=== PATIENT | male | born 1950 | race Caucasian/White ===

== ENCOUNTER 2017-10-14 11:39 | Inpatient (IN) | payer MEDICARE ==
[~2017-10-14] VITALS: Ht 175.3 cm; Wt 107.3 kg
[2017-10-14] VITALS (8 sets, daily range): BP systolic 155–208; BP diastolic 68–138; PULSE 75–98; RESP 14–20; TEMP 97.1–98.6; O2SAT 92–94
[~2017-10-14 11:39] MED LIST: ASPI81TA11 PO; AZIT250T43 PO; BISA5TAB5 PO; BRIM0.2S EACH EYE; BUDE0.5S INH; CEPH500C3 PO; CO Q100C9 PO; DUONI NEB; FORM12I INH; GLUC750T13 PO; GUAI600 PO; HYDR50TA15 PO; LISI-366 PO; LORA10TA PO; LORTA5 PO; MOTR200T PO; PRED10 PO; PROB1TAB PO; TAB-TAB PO; Z.0.OXYGEN INH
[2017-10-14] MEDS ORDERED: SODIUM CHLORIDE 0.9% FLUSH 10 ML FLUSH IVF PRN (12:15)
--- NOTE | 2017-10-14 12:17 | PD ---
HPI Chief Complaint: Respiratory Symptoms Time Seen by Provider: 11:55 Travel History International Travel<30 days: No Contact w/Intl Traveler<30days: No History of Present Illness HPI This is a 67-year-old male with history of COPD, recent fluid retention, presents from his doctor's office for admission for fluid retention. According to the patient, he was started on furosemide however he is still having swelling and shortness of breath. His physician heard rales on exam and sent him here for admission. The patient denies any chest pain, chest pressure. He denies any previous history of congestive heart failure. There are no other complaints at the time of my examination. PFSH Past Medical History Arthritis: Yes Asthma: No Autoimmune Disease: No Blood Disorders: No Anxiety: No Depression: No Heart Rhythm Problems: No Cancer: No Cardiovascular Problems: Yes High Cholesterol: No Chemotherapy: No Chest Pain: No Congestive Heart Failure: No COPD: Yes Cerebrovascular Accident: No Diabetes: Yes (borderline, does not take medication) Patient Takes Glucophage: No Diminished Hearing: No Endocrine: Yes Gastrointestinal Disorders: Yes (RECTAL FISTULA) GERD: No Glaucoma: No Genitourinary: No Headaches: No Hepatitis: No Hiatal Hernia: Yes Heparin Induced Thrombocytopen: No Hypertension: Yes Immune Disorder: No Implanted Vascular Access Dvce: No Kidney Stones: No Medical other: No Musculoskeletal: Yes Neurologic: No Psychiatric: No Reproductive: No Respiratory: Yes Immunizations Current: No Migraines: No Myocardial Infarction: No Radiation Therapy: No Renal Failure: No Seizures: No Sickle Cell Disease: No Sleep Apnea: Yes (cpap at night) Thyroid Disease: No Ulcer: No PNEUMOCCOCAL Vaccine (Year): 2 Past Surgical History Abdominal Surgery: No AICD: No Appendectomy: No Arteriovenous Shunt: No Cardiac Surgery: No Cholecystectomy: No Ear Surgery: No Endocrine Surgery: No Eye Surgery: No Genitourinary Surgery: No Gynecologic Surgery: No Insulin Pump: No Joint Replacement: No Neurologic Surgery: No Oral Surgery: No Pacemaker: No Thoracic Surgery: Yes Other Surgery: Yes (RECTAL FISTULA REPAIR IN 1984) Social History Alcohol Use: Yes (4-5 BEERS A DAY) Tobacco Use: No (QUIT 4 YEARS AGO) Substance Use: No Allergies-Medications (Allergen,Severity, Reaction): Coded Allergies: latex (Unverified Allergy, Severe, RASH AND ITCHING, 04/20/17) atorvastatin (Unverified Adverse Reaction, Severe, LETHARGY, 04/20/17) hydrochlorothiazide (Unverified Adverse Reaction, Severe, LOW SODIUM LEVEL , 04/20/17) Reported Meds & Prescriptions Reported Meds & Active Scripts Active Reported Keflex (Cephalexin Monohydrate) 500 Mg Cap 500 Mg PO Q6 7 Days [place] 5/325 (Hydrocodone/Acetaminophen 5/325) 5 mg/325 mg Tab 1 Tab PO Q6H PRN Dulcolax (Bisacodyl) 5 Mg Tabec 5 Mg PO DAILY PRN Brimonidine Tartrate 0.2 % Argenis 1 Drop EACH EYE BID Claritin 10 Mg Tab (Loratadine) 10 Mg Tab 10 Mg PO DAILY Probiotic (Probiotic Product) 1 Tab Tab 1 Tab PO DAILY Co Q 10 (Coenzyme Q10) 100 Mg Cap 100 Mg PO DAILY Glucosamine Sulfate Tripl (Glucosamine Sulfate) 750 Mg Tab 750 Mg PO BID Multivitamin (Multivitamins) 1 Tab Tab 1 Tab PO DAILY Mucinex 600 Mg Tab (Guaifenesin) 600 Mg Tabcr 1-2 Tab PO DAILY Lisinopril 40 mg (Lisinopril) 40 Mg Tab 1 Tab PO HS Hydralazine HCl 50 Mg Tab 75 Mg PO TID Budesonide (Budesonide (Inhalation)) 0.5MG/2 Jackie 1 Vial INH BID IN NEBULIZER WITH FORMOTEROL Foradil 12 Mcg Aerolizer (Formoterol Fumarate) 12 Inhalation/Inhaler Aero 1 Inhalation INH BID USED IN NEBULIZER WITH BUDESONIDE 12MCG IS DOSE Resp: Albuterol/Ipratropium 2.5 Mg/0.5 Mg (Albuterol/Ipratropium) 1 Amp Nebu 1 Ampule NEB Q4HR NEB PRN Oxygen (O2) (Miscellaneous Medication) Inha 2 L INH INTERMITTENT PRN Oxygen (O2) (Miscellaneous Medication) Inha 2-3 L INH HS Deltasone 10 Mg Tab (Prednisone) 10 Mg Tab 10 Mg PO DAILY Ibuprofen 200 Mg Tab 200 Mg PO BID Azithromycin 250 Mg Tab 250 Mg PO MO,WE,FR Aspirin EC 81 mg (Aspirin) 81 Mg Tab 81 Mg PO DAILY Review of Systems Except as stated in HPI: all other systems reviewed are Neg General / Constitutional: No: Fever, Chills HENT: No: Headaches, Lightheadedness, Neck Pain Cardiovascular: No: Chest Pain or Discomfort, Palpitations, Irregular Rhythm Respiratory: Positive: Shortness of Breath, Other, No: Cough Gastrointestinal: No: Nausea (Dyspnea on exertion), Vomiting Genitourinary: No: Decreased Urinary Output Musculoskeletal: Positive: Weakness (Exertional), Edema, No: Pain Neurologic: Positive: Weakness, No: Dizziness, Headache Physical Exam Narrative GENERAL: Well-developed well-nourished male in mild respiratory discomfort. SKIN: Focused skin assessment warm/dry. HEAD: Atraumatic. Normocephalic. EYES: Pupils equal and round. No scleral icterus. No injection or drainage. ENT: No nasal bleeding or discharge. Mucous membranes pink and moist. NECK: Trachea midline. Supple. CARDIOVASCULAR: Regular rate and rhythm. No murmur appreciated. RESPIRATORY: Rales appreciated on the bilateral basis. Mild expiratory wheezes heard in the upper airways bilaterally. GASTROINTESTINAL: Abdomen soft, non-tender, nondistended. Hepatic and splenic margins not palpable. MUSCULOSKELETAL: No obvious deformities. No clubbing. No cyanosis. 2+ pitting edema bilateral lower extremities. NEUROLOGICAL: Awake and alert. No obvious cranial nerve deficits. Motor grossly within normal limits. Normal speech. PSYCHIATRIC: Appropriate mood and affect; insight and judgment normal. Data Data Last Documented VS Vital Signs Date Time Temp Pulse Resp B/P (MAP) Pulse Ox O2 Delivery O2 Flow Rate FiO2 10/14/17 12:08 79 26 Nasal Cannula 2.00 10/14/17 12:07 159/75 (103) 93 10/14/17 11:42 98.6 Orders Orders Complete Blood Count With Diff (10/14/17 12:04) Comprehensive Metabolic Panel (10/14/17 12:04) B-Type Natriuretic Peptide (10/14/17 12:04) Act Partial Throm Time (Ptt) (10/14/17 12:04) Prothrombin Time / Inr (Pt) (10/14/17 12:04) Ckmb (Isoenzyme) Profile (10/14/17 12:04) Troponin I (10/14/17 12:04) Iv Access Insert/Monitor (10/14/17 12:04) Electrocardiogram (10/14/17 12:04) Ecg Monitoring (10/14/17 12:04) Oximetry (10/14/17 12:04) Oxygen Administration (10/14/17 12:04) Chest, Single Ap (10/14/17 12:04) Sodium Chloride 0.9% Flush (Ns Flush) (10/14/17 12:15) MDM Medical Decision Making Medical Screen Exam Complete: Yes Emergency Medical Condition: Yes Differential Diagnosis Congestive heart failure versus renal insufficiency versus acute coronary syndrome Narrative Course 67-year-old male presents from his primary care physician office for fluid overload. Patient has been on Lasix and he is continues to have swelling and dyspnea on exertion. Exam reveals CHF. The patient will be admitted to the hospital for diuresis. Jesus Garcia MD Oct 14, 2017 12:17
[2017-10-14 12:37] LABS: AUTOMATED NEUTROPHIL # 23.9 TH/MM3 (1.8-7.7); BASOPHIL # 0.1 TH/MM3 (0-0.2); BASOPHIL % 0.5 % (0.0-2.0); EOSINOPHIL # 0.1 TH/MM3 (0-0.4); EOSINOPHIL % 0.3 % (0.0-4.0); HEMATOCRIT 38.4 % (39.0-51.0); HEMOGLOBIN 12.6 GM/DL (13.0-17.0); LYMPH % 6.9 % (9.0-44.0); LYMPHOCYTE # 1.9 TH/MM3 (1.0-4.8); MEAN CELL VOLUME 95.3 FL (80.0-100.0); MEAN CORPUSCULAR HEMOGLOBIN 31.4 PG (27.0-34.0); MEAN CORPUSCULAR HGB CONC 32.9 % (32.0-36.0); MEAN PLATELET VOLUME 7.4 FL (7.0-11.0); MONO % 4.9 % (0.0-8.0); MONOCYTE # 1.4 TH/MM3 (0-0.9); NEUT % 87.4 % (16.0-70.0); PLATELET COUNT 274 TH/MM3 (150-450); RED BLOOD COUNT 4.03 MIL/MM3 (4.50-5.90); RED CELL DISTRIBUTION WIDTH 15.9 % (11.6-17.2); WHITE BLOOD COUNT 27.3 TH/MM3 (4.0-11.0)
[2017-10-14] MEDS ORDERED: FURO1TAB62 PO (12:37)
[2017-10-14] MEDS ORDERED: BUDESONIDE NEB (12:37)
[2017-10-14] MEDS ORDERED: FORMOTEROL NEB (12:37)
[2017-10-14] MEDS ORDERED: GUAI600T11 PO (12:37)
[2017-10-14] MEDS ORDERED: MULT1TAB50 PO (12:37)
[2017-10-14] MEDS ORDERED: IPRA0.02 NEB (12:37)
[2017-10-14] MEDS ORDERED: ALBU0.08 NEB (12:37)
[2017-10-14] MEDS ORDERED: K-TA10TA PO (12:37)
[2017-10-14] MEDS ORDERED: HYDR-3800 PO (12:37)
[2017-10-14] MEDS ORDERED: OXYGEN NAS.CANULA (12:37)
[2017-10-14] MEDS ORDERED: LOSA25TA PO (12:37)
[2017-10-14] MEDS ORDERED: WELLTAB39 PO (12:37)
[2017-10-14] MEDS ORDERED: IBUP200T47 PO (12:37)
[2017-10-14] MEDS ORDERED: PRED10 PO (12:37)
[2017-10-14] MEDS ORDERED: MONT10TA2 PO (12:37)
--- NOTE | 2017-10-14 12:45 | RADRPT ---
EXAM DATE/TIME: 10/14/2017 12:26 [facility] COMPARISON: CHEST SINGLE AP, October 16, 2015, 4:38. INDICATIONS : Shortness of breath for 1 week. MEDICAL HISTORY : Hypertension. Chronic obstructive pulmonary disease. Diabetes mellitus type II. SURGICAL HISTORY : None. ENCOUNTER: Initial ACUITY: 1 week PAIN SCORE: 0/10 LOCATION: Bilateral chest FINDINGS: A single view of the chest demonstrates continued improvement in the right basilar area of consolidat ion/effusion. There is still some consolidation/effusion persisting, however. Left lung is now grossl y clear. Heart size is borderline prominent but appears to be water density. Degenerative spurring of the dorsal spine. Osseous structures are otherwise intact. CONCLUSION: 1. While there is some improving aeration in the right base, there is still some airspace disease/eff usion remaining. 2. Left lung remains clear. 3. Heart size is borderline prominent but well compensated Jerod Cunningham MD on October 14, 2017 at 12:40 Board Certified Radiologist. This report was verified electronically.
[2017-10-14 12:46] LABS: INTERNATIONAL NORMALIZED RATIO 1.1 RATIO; PROTHROMBIN TIME - PATIENT 10.7 SEC (9.8-11.6)
--- NOTE | 2017-10-14 12:55 | HHI.HP ---
HPI Service [facility] Hospitalists Primary Care Physician Rafat Leblanc D.O. Admission Diagnosis sob. swelling Chief Complaint: sob./swelling Travel History International Travel<30 Days: No Contact w/Intl Traveler <30 Da: No History of Present Illness Pt is 67 yo with severe copd/o2/steroid dependent, ember/cpap, htn, chronic back pain. Pt recently has CHUNG w/in last month and had been overall feeling much better. Says in July he developed some swelling in his legs/feet and pcp placed on lasix with good results until this past week. Now with more swelling in both lower extremities, at least 6 pound weight gain, more sob, and abdomen distention. Seen in pcp office today and very hypertensive today up to 200s systolic. Pt reports trying to taper prednisone from 10 down to 7mg about 2 weeks ago and just went back up to 10mg daily 2 days ago. Denies orthopnea but mostly sob with exertion. No reported f/c/n/v. No cp but just more distention of his abdomen. his back pain has returned and was supposed to get another CHUNG today. Sent to ED from pcp office after calling me. I agree with his admission to the hospital for further care. Of note he also took a week of cefuroxime the week before last due to more sob. Made no difference. Review of Systems Other sob weight gain distended abdomen swelling legs bilaterally Past Family Social History Past Medical History ember/cpap severe copd..sees Dr Ferguson fev1 around 28 recurrent right exudative pleural effusion..s/p extensive eval . no conclusive etiology.. ?parapneumonic effusion..pet/ct neg/cytology neg right VATS and pleurodesis 2015. htn hx perineal abscess requiring I/D with subsequent colonoscopy with Dr Burkett. Left lung granulomatous mass/presumed to be Histoplasmosis given he grew up [facility] s/p bronchoscopy with Dr Ferguson. has been dx with dm2 in past..but controlled with diet. hyponatremia L1 to L5 foramen stenosis mod/severe worse on left..radiculopathy in the past. recent CHUNG. echo and lexiscan in november 2014 normal lvf and no ischemia Reported Medications Prednisone 10 Mg Tab 10 Mg PO DAILY [Oxygen] 2 Liter DAMION.CANULA DAILY PRN Mucus Relief ER (Guaifenesin) 600 Mg Tab 600 Mg PO Q12HR PRN Singulair (Montelukast Sodium) 10 Mg Tab 10 Mg PO HS Losartan (Losartan Potassium) 25 Mg Tab 25 Mg PO DAILY K-Tab (Potassium Chloride) 10 Meq Tab 10 Meq PO DAILY Ipratropium Neb (Ipratropium [place]) 0.5 Mg/2.5 Ml Amp 0.5 Mg NEB QID Ibuprofen 200 Mg Tab 200 Mg PO BID Hydralazine HCl 50 Mg Tablet 75 Mg PO TID Lasix (Furosemide) 20 Mg Tab 20 Mg PO BID [Formot/Budesonide] 3 Ml NEB BID FORMOTEROL 12MCG/BUDESONIDE 0.5MG/3ML NEB SOLUTION Centrum Men's Tablet (Multivit-Mins/Iron/Folic/Lycop) 8 Mg Iron-200 Mcg-600 Mcg Tablet 1 Tab PO DAILY Wellbutrin Xl 24 HR (Bupropion HCl) 300 Mg Tab 300 Mg PO DAILY Albuterol Neb (Albuterol Sulfate) 2.5 Mg/3 Ml Neb 2.5 Mg NEB QID NEB PRN Allergies: Coded Allergies: latex (Unverified Allergy, Severe, RASH AND ITCHING, 04/20/17) atorvastatin (Unverified Adverse Reaction, Severe, LETHARGY, 04/20/17) hydrochlorothiazide (Unverified Adverse Reaction, Severe, LOW SODIUM LEVEL , 04/20/17) Family History mother breast ca Social History lifelong smoker. quit about 10yrs ago occ/social etoh. Physical Exam Vital Signs mild labored breathing oriented heart reg lung basilar crackles bilaterally abd distended. bs ext 2 plus pitting bilaterally to knees. Vital Signs Date Time Temp Pulse Resp B/P (MAP) Pulse Ox O2 Delivery O2 Flow Rate FiO2 10/14/17 12:13 94 Nasal Cannula 2.00 10/14/17 12:13 18 94 Nasal Cannula 2.00 10/14/17 12:08 79 26 Nasal Cannula 2.00 10/14/17 12:07 81 18 159/75 (103) 93 Nasal Cannula 2.00 10/14/17 11:42 98.6 87 18 208/138 (161) 94 Laboratory Laboratory Tests Test 10/14/17 12:16 White Blood Count 27.3 Red Blood Count 4.03 Hemoglobin 12.6 Hematocrit 38.4 Mean Corpuscular Volume 95.3 Mean Corpuscular Hemoglobin 31.4 Mean Corpuscular Hemoglobin Concent 32.9 Red Cell Distribution Width 15.9 Platelet Count 274 Mean Platelet Volume 7.4 Neutrophils (%) (Auto) 87.4 Lymphocytes (%) (Auto) 6.9 Monocytes (%) (Auto) 4.9 Eosinophils (%) (Auto) 0.3 Basophils (%) (Auto) 0.5 Neutrophils # (Auto) 23.9 Lymphocytes # (Auto) 1.9 Monocytes # (Auto) 1.4 Eosinophils # (Auto) 0.1 Basophils # (Auto) 0.1 CBC Comment AUTO DIFF Prothrombin Time 10.7 Prothromb Time International Ratio 1.1 Activated Partial Thromboplast Time 24.5 Result Diagram: 10/14/17 1216 Caprini VTE Risk Assessment Caprini VTE Risk Assessment: Mod/High Risk (score >= 2) Caprini Risk Assessment Model Point Value = 1 Point Value = 2 Point Value = 3 Point Value = 5 Age 41-60 Minor surgery BMI > 25 kg/m2 Swollen legs Varicose veins or History of unexplained or recurrent spontaneous Oral contraceptives or hormone replacement Sepsis (< 1 month) Serious lung disease, including pneumonia (< 1 month) Abnormal pulmonary function Acute myocardial infarction Congestive heart failure (< 1 month) History of inflammatory bowel disease Medical patient at bed rest Age 61-74 Arthroscopic surgery Major open surgery (> 45 min) Laparoscopic surgery (> 45 min) Malignancy Confined to bed (> 72 hours) Immobilizing plaster cast Central venous access Age >= 75 History of VTE Family history of VTE Factor V Leiden Prothrombin [id number] Lupus anticoagulant Anticardiolipin antibodies Elevated serum homocysteine Heparin-induced thrombocytopenia Other congenital or acquired thrombophilia Stroke (< 1 month) Elective arthroplasty Hip, pelvis, or leg fracture Acute spinal cord injury (< 1 month) Prophylaxis Regimen Total Risk Factor Score Risk Level Prophylaxis Regimen 0-1 Low Early ambulation 2 Moderate Order ONE of the following: *Sequential Compression Device (SCD) *Heparin 5000 units SQ BID 3-4 Higher Order ONE of the following medications: *Heparin 5000 units SQ TID *Enoxaparin/Lovenox 40 mg SQ daily (WT < 150 kg, CrCl > 30 mL/min) *Enoxaparin/Lovenox 30 mg SQ daily (WT < 150 kg, CrCl > 10-29 mL/min) *Enoxaparin/Lovenox 30 mg SQ BID (WT < 150 kg, CrCl > 30 mL/min) AND/OR *Sequential Compression Device (SCD) 5 or more Highest Order ONE of the following medications: *Heparin 5000 units SQ TID (Preferred with Epidurals) *Enoxaparin/Lovenox 40 mg SQ daily (WT < 150 kg, CrCl > 30 mL/min) *Enoxaparin/Lovenox 30 mg SQ daily (WT < 150 kg, CrCl > 10-29 mL/min) *Enoxaparin/Lovenox 30 mg SQ BID (WT < 150 kg, CrCl > 30 mL/min) AND *Sequential Compression Device (SCD) Assessment and Plan Problem List: (1) SOB (shortness of breath) ICD Codes: R06.02 - Shortness of breath Status: Acute (2) Edema ICD Codes: R60.9 - Edema, unspecified Status: Acute (3) Distended abdomen ICD Codes: R14.0 - Abdominal distension (gaseous) Status: Acute (4) COPD (chronic obstructive pulmonary disease) ICD Codes: J44.9 - Chronic obstructive pulmonary disease Status: Chronic (5) HTN (hypertension) ICD Codes: I10 - HTN (hypertension) Status: Chronic (6) Spinal stenosis, lumbar ICD Codes: M48.06 - Spinal stenosis, lumbar Status: Chronic Physician Certification 2 Midnight Certification Type: Admission for Inpatient Services Order for Inpatient Services 3The services are ordered in accordance with Medicare regulations or non- Medicare payer requirements, as applicable. In the case of services not specified as inpatient-only, they are appropriately provided as inpatient services in accordance with the 2-midnight benchmark. Estimated LOS (days): 3 3 days is the estimated time the patient will need to remain in the hospital, assuming treatment plan goals are met and no additional complications. Post-Hospital Plan: Home Kai Jennings MD Oct 14, 2017 12:55
[2017-10-14] MEDS ORDERED: cloNIDine HCL 0.1 MG TAB PO PRN (13:00)
[2017-10-14] MEDS ORDERED: guaiFENesin E.R. 600 MG TAB PO PRN (13:00)
[2017-10-14 13:03] LABS: ALBUMIN 3.6 GM/DL (3.4-5.0); ALT (GPT) 37 U/L (12-78); AST (GOT) 23 U/L (15-37); BICARBONATE 28.4 MEQ/L (21.0-32.0); BLOOD UREA NITROGEN 18 MG/DL (7-18); CALCIUM 8.6 MG/DL (8.5-10.1); CHLORIDE 100 MEQ/L (98-107); CREATININE 1.09 MG/DL (0.60-1.30); GLOMERULAR FILTRATION RATE 67 ML/MIN (>89); GLUCOSE,RANDOM 178 MG/DL (74-106); SODIUM (NA) 135 MEQ/L (136-145)
[2017-10-14 13:07] LABS: ALKALINE PHOSPHATASE 66 U/L (45-117); TOTAL BILIRUBIN ADULT 0.3 MG/DL (0.2-1.0); TOTAL PROTEIN 7.5 GM/DL (6.4-8.2); TROPONIN I LESS THAN 0.02 NG/ML (0.02-0.05)
[2017-10-14] MEDS ORDERED: FUROSEMIDE 20 MG/2 ML VIAL IV PUSH ONE (13:15)
[2017-10-14 13:17] LABS: BANDS 6 % (0-6); CORRECTED NUCLEATED RBC 1 /100 WBC (0-0); LYMPHOCYTES 12 % (9-44); METAMYELOCYTES 11 % (0-1); MONOCYTES 7 % (0-8); MYELOCYTES 8 % (0-0); NEUTROPHIL # MANUAL DIFF 22.1 TH/MM3 (1.8-7.7); NUCLEATED RED BLOOD CELL 1 (0-0); POLYS (SEG NEUTROPHILS) 56 % (16-70)
[2017-10-14 13:47] LABS: BILIRUBIN, URINE NEG (NEG); BLOOD, URINE NEG (NEG); GLUCOSE,URINE NEG (NEG); KETONE, URINE NEG (NEG); MUCUS URINE FEW /lpf (OCC); NITRITE,URINE NEG (NEG); SQUAMOUS EPITHELIAL CELL URINE <1 /hpf (0-5); URINE COLOR YELLOW (YELLW/STRAW); URINE LEUKOCYTE ESTERASE NEG (NEG)
[2017-10-14] MEDS: hydrALAZINE HCL 25 MG TAB PO SCH ×2 (14:27→17:04)
--- NOTE | 2017-10-14 14:37 | RADRPT ---
EXAM DATE/TIME: 10/14/2017 14:05 [facility] COMPARISON: CT THORAX W/O CONTRAST, April 30, 2015, 17:47. INDICATIONS : Shortness of breath, weight gain, abdomen distention, leg swelling RADIATION DOSE: 19.63 CTDIvol (mGy) ; Combined studies - Thorax/Abdomen/Pelvis MEDICAL HISTORY : Chronic obstructive pulmonary disease. Hypertension. Diabetes SURGICAL HISTORY : Left lung pleurodesis,rectal fistula ENCOUNTER: Initial ACUITY: 1 month PAIN SCALE: 0/10 LOCATION: chest TECHNIQUE: Volumetric scanning of the chest was performed. Using automated exposure control and adjustment of t he mA and/or kV according to patient size, radiation dose was kept as low as reasonably achievable to obtain optimal diagnostic quality images. DICOM format image data is available electronically for r eview and comparison. Follow-up recommendations for detected pulmonary nodules are based at a minimum on nodule size and pa tient risk factors according to Fleischner Society Guidelines. FINDINGS: Scattered centrilobular emphysema is noted. Calcified mass is noted within the left lower lobe measur ing 1.6 cm. Focal consolidation is noted posteriorly within the right lower lobe consistent with scar ring, atelectasis and/or mild infiltrate. Clinical correlation is recommended. The heart is stable. N o mediastinal, hilar or axillary lymphadenopathy is noted. No pleural effusion is noted. Degenerative changes and scoliosis of the thoracic spine are noted. CONCLUSION: 1. Focal consolidation posteriorly within the right lower lobe consistent with scarring, atelectasis and/or mild infiltrate. Clinical correlation is recommended. 2. 1.6 cm calcified mass within the left lower lobe. 3. Scattered centrilobular emphysema. 4. Degenerative changes and scoliosis of the thoracic spine. Bo Mendoza MD on October 14, 2017 at 14:29 Board Certified Radiologist. This report was verified electronically.
--- NOTE | 2017-10-14 14:41 | RADRPT ---
EXAM DATE/TIME: 10/14/2017 14:05 [facility] COMPARISON: No previous studies available for comparison. INDICATIONS : Shortness of breath, weight gain, abdomen distention, leg swelling. ORAL CONTRAST: No oral contrast ingested. RADIATION DOSE: 19.63 CTDIvol (mGy) ; Combined studies - Thorax/Abdomen/Pelvis MEDICAL HISTORY : Hypertension. Chronic obstructive pulmonary disease. Diabetes SURGICAL HISTORY : Left chest pleurodesis,rectal fistula ENCOUNTER: Initial ACUITY: 1 month PAIN SCALE: 0/10 LOCATION: chest TECHNIQUE: Volumetric scanning of the abdomen and pelvis was performed. Using automated exposure control and ad justment of the mA and/or kV according to patient size, radiation dose was kept as low as reasonably achievable to obtain optimal diagnostic quality images. DICOM format image data is available electro nically for review and comparison. FINDINGS: LOWER LUNGS: The visualized lower lungs are clear. LIVER: Hepatomegaly is noted. Homogeneous density without lesion. There is no dilation of the biliary tree. Calcified gallstone is noted. SPLEEN: Normal size without lesion. PANCREAS: Within normal limits. KIDNEYS: Normal in size and shape. There is no mass, stone, or hydronephrosis. ADRENAL GLANDS: Within normal limits. VASCULAR: There is no aortic aneurysm. BOWEL/MESENTERY: Uncomplicated colonic diverticulosis is noted. ABDOMINAL WALL: Within normal limits. RETROPERITONEUM: There is no lymphadenopathy. BLADDER: No wall thickening or mass. REPRODUCTIVE: Within normal limits. INGUINAL: There is no lymphadenopathy or hernia. MUSCULOSKELETAL: Degenerative changes and scoliosis of the lumbar spine are noted. CONCLUSION: 1. Hepatomegaly. 2. Cholelithiasis. 3. Degenerative changes and scoliosis of the lumbar spine. Bo Mendoza MD on October 14, 2017 at 14:35 Board Certified Radiologist. This report was verified electronically.
[2017-10-14] MEDS ORDERED: RESP: ALBUTEROL 2.5 MG/IPRATROPIUM 0.5 MG NEB (PRN) NEB (15:00)
[2017-10-14] MEDS ORDERED: IBUPROFEN 400 MG TAB PO PRN (15:00)
[2017-10-14] MEDS ORDERED: TEMAZEPAM 15 MG CAP PO PRN (15:00)
[2017-10-14] MEDS: RESP: ALBUTEROL 2.5 MG/IPRATROPIUM 0.5 MG NEB (SCH) NEB ×2 (15:26→19:21)
[2017-10-14] MEDS: FUROSEMIDE 20 MG/2 ML VIAL IV PUSH SCH (17:05)
[2017-10-14] MEDS: RESP: BUDESONIDE 0.5 MG/2 ML NEB NEB SCH ×2 (19:20→19:32)
[2017-10-14] MEDS: LOSARTAN 25 MG TAB PO SCH (21:12)
[2017-10-14] MEDS: MONTELUKAST SODIUM 10 MG TAB PO SCH (21:12)
[2017-10-14] MEDS: POTASSIUM CHLORIDE 10 MEQ CONTROLLED RELEASE TAB PO SCH (21:12)
[2017-10-15] VITALS (11 sets, daily range): BP systolic 137–159; BP diastolic 64–80; PULSE 70–79; RESP 18–20; TEMP 97.8–98.2; O2SAT 86–97
[2017-10-15 07:10] LABS: HEMATOCRIT 34.7 % (39.0-51.0); HEMOGLOBIN 11.5 GM/DL (13.0-17.0); MEAN CELL VOLUME 95.8 FL (80.0-100.0); MEAN CORPUSCULAR HEMOGLOBIN 31.6 PG (27.0-34.0); MEAN PLATELET VOLUME 7.1 FL (7.0-11.0); PLATELET COUNT 242 TH/MM3 (150-450); RED BLOOD COUNT 3.63 MIL/MM3 (4.50-5.90); RED CELL DISTRIBUTION WIDTH 16.2 % (11.6-17.2); WHITE BLOOD COUNT 23.2 TH/MM3 (4.0-11.0)
[2017-10-15 07:42] LABS: BICARBONATE 29.9 MEQ/L (21.0-32.0); CALCIUM 8.4 MG/DL (8.5-10.1); CREATININE 1.13 MG/DL (0.60-1.30)
[2017-10-15] MEDS: buPROPion HCL 150 MG SUSTAINED RELEASE TAB PO SCH ×2 (07:45→21:08)
[2017-10-15] MEDS: predniSONE 10 MG TAB PO SCH (07:45)
[2017-10-15] MEDS: hydrALAZINE HCL 25 MG TAB PO SCH ×3 (07:45→17:52)
[2017-10-15] MEDS: FUROSEMIDE 20 MG/2 ML VIAL IV PUSH SCH ×2 (07:46→17:53)
[2017-10-15] MEDS: POTASSIUM CHLORIDE 10 MEQ CONTROLLED RELEASE TAB PO SCH ×2 (07:46→21:08)
[2017-10-15] MEDS: RESP: ALBUTEROL 2.5 MG/IPRATROPIUM 0.5 MG NEB (SCH) NEB ×4 (08:46→20:37)
[2017-10-15] MEDS: RESP: BUDESONIDE 0.5 MG/2 ML NEB NEB SCH ×2 (08:46→20:36)
[2017-10-15] MEDS ORDERED: POTASSIUM CHLORIDE 10 MEQ CONTROLLED RELEASE TAB PO SCH (09:00)
[2017-10-15] MEDS ORDERED: LOSARTAN 25 MG TAB PO SCH (09:00)
[2017-10-15 09:33] LABS: BANDS 9 % (0-6); BASOPHILS 3 % (0-2); LYMPHOCYTES 21 % (9-44); METAMYELOCYTES 4 % (0-1); MONOCYTES 5 % (0-8); MYELOCYTES 7 % (0-0); NEUTROPHIL # MANUAL DIFF 16.5 TH/MM3 (1.8-7.7); POLYS (SEG NEUTROPHILS) 51 % (16-70)
--- NOTE | 2017-10-15 11:31 | HHI.PR ---
Subjective Remarks 50% improvement in breathing less edema on legs and less abdomen distention. Objective Vitals nad heart reg lung crackles bases. less on right abd s/nt/bs ext trace/1plus right pedal edema improved left pedal edema Vital Signs Date Time Temp Pulse Resp B/P (MAP) Pulse Ox O2 Delivery O2 Flow Rate FiO2 10/15/17 10:13 79 10/15/17 08:48 92 2.00 10/15/17 07:39 97.9 70 20 148/65 (92) 93 10/15/17 04:00 77 10/15/17 04:00 98.1 73 18 158/72 (100) 97 10/15/17 00:00 97.8 76 18 159/80 (106) 97 10/14/17 23:48 75 10/14/17 20:00 97.1 93 18 155/68 (97) 93 10/14/17 19:55 98 10/14/17 16:09 97.8 79 20 171/77 (108) 92 10/14/17 15:26 94 Nasal Cannula 2.00 10/14/17 12:13 94 Nasal Cannula 2.00 10/14/17 12:13 18 94 Nasal Cannula 2.00 10/14/17 12:08 79 26 Nasal Cannula 2.00 10/14/17 12:07 81 18 159/75 (103) 93 Nasal Cannula 2.00 10/14/17 11:42 98.6 87 18 208/138 (161) 94 Result Diagram: 10/15/17 0606 10/15/17 0606 A/P Problem List: (1) SOB (shortness of breath) ICD Codes: R06.02 - Shortness of breath Status: Acute Plan: 1. acute sob/peripheral edema. volume overloaded. ?diastolic chf. pt with severe elevation of bp prior to arrival. no obvious pneumonia severe copd/o2/steroid dep. but this doesn't appear to be a copd flare ember..cont cpap his previous recurrent right pleural effusion has not returned. s/p VATS 2. Leukocytosis. unclear etiology. pt chronically on steroids but wbc not typically this high ?stress related. no fever or obvious infection to account for it. recent abx use but no diarrhea currently trending down with no specific rx. 3. htn..improved. plan 2 d echo still pending cont iv lasix. cont current bp meds and adjust up on arb if needed. PT eval today...discussed with PT. dvt prophylaxis monitor bmp. recheck wbc. home cpap. nebs. steroid. (2) Edema ICD Codes: R60.9 - Edema, unspecified Status: Acute (3) Distended abdomen ICD Codes: R14.0 - Abdominal distension (gaseous) Status: Acute (4) COPD (chronic obstructive pulmonary disease) ICD Codes: J44.9 - Chronic obstructive pulmonary disease Status: Chronic (5) HTN (hypertension) ICD Codes: I10 - HTN (hypertension) Status: Chronic (6) Spinal stenosis, lumbar ICD Codes: M48.06 - Spinal stenosis, lumbar Status: Chronic Kai Jennings MD Oct 15, 2017 11:31
--- NOTE | 2017-10-15 14:58 | EKG ---
Date Performed: 10/14/2017 Time Performed: 12:25:54 PTAGE: 67 years EKG: Sinus rhythm Since previous tracing, no significant change noted NORMAL ECG PREVIOUS TRACING : 10/10/2015 11.39 DOCTOR: Yaz Jeffries Interpretating Date/Time 10/15/2017 14:56:17
--- NOTE | 2017-10-15 16:25 | ECHRPT ---
Indication: CARDIOMYOPATHY CONCLUSIONS Mildly dilated left ventricle. Wall thickness is normal. Doppler parameters are consistent with impaired left ventricular relaxtion (grade 1 diastolic dysfun ction). Trivial pulmonary valve regurgitation. BP: 159 / 75 HR: 79 Rhythm: MEASUREMENTS (Male / Female) Normal Values Technical Quality:Good 2D ECHO LV Diastolic Diameter PLAX 5.0 cm 4.2 - 5.9 / 3.9 - 5.3 cm LV Systolic Diameter PLAX 3.6 cm IVS Diastolic Thickness 1.1 cm 0.6 - 1.0 / 0.6 - 0.9 cm LVPW Diastolic Thickness 1.1 cm 0.6 - 1.0 / 0.6 - 0.9 cm LV Relative Wall Thickness 0.4 LA Systolic Diameter LX 3.5 cm 3.0 - 4.0 / 2.7 - 3.8 cm DOPPLER LVOT Peak Velocity 150.0 cm/s LVOT Peak Gradient 9.0 mmHg Mitral E Point Velocity 101.0 cm/s Mitral A Point Velocity 131.0 cm/s Mitral E to A Ratio 0.8 TR Peak Velocity 158.5 cm/s TR Peak Gradient 10.0 mmHg FINDINGS LEFT VENTRICLE Mildly dilated left ventricle. Wall thickness is normal. The left ventricular systolic function is normal with an estimated ejection fraction in the range of 60-65%. Doppler parameters are consistent with impaired left ventricular relaxtion (grade 1 diastolic dysfun ction). RIGHT VENTRICLE Normal right ventricular size and systolic function. LEFT ATRIUM The left atrial size is normal. RIGHT ATRIUM The right atrial size is normal. ATRIAL SEPTUM Normal atrial septal thickness without atrial level shunting by limited color doppler interrogation. AORTA The aortic root and proximal ascending aorta are normal in size on limited imaging. MITRAL VALVE Structurally normal mitral valve. No mitral valve stenosis or regurgitation. AORTIC VALVE Trileaflet aortic valve. No aortic valve stenosis or regurgitation. TRICUSPID VALVE Structurally normal tricuspid valve. No tricuspid valve stenosis or regurgitation. PULMONARY VALVE Trivial pulmonary valve regurgitation. VESSELS The inferior vena cava is normal in size. PERICARDIUM No pericardial effusion. Demond Verdin MD, FACC (Electronically Signed) Final Date:15 October 2017 16:25
--- NOTE | 2017-10-15 20:29 | RADRPT ---
EXAM DATE/TIME: 10/15/2017 19:25 [facility] COMPARISON: No previous studies available for comparison. INDICATIONS : Right leg swelling. MEDICAL HISTORY : Congestive heart failure. Hypertension. Chronic obstructive pulmonary disease. Glasses. Dyspnea. H iatal hernia. Arthritis. Back problems. Diabetes. Depression. Sleep apnea. SURGICAL HISTORY : Chest surgery. Rectal fistula repair. ENCOUNTER: Initial ACUITY: 2 months PAIN SCORE: 2/10 LOCATION: Right legs. TECHNIQUE: Venous ultrasound of the leg was performed from the inguinal ligament to the proximal calf. Real-catarina e, color Doppler and spectral tracing, compression and augmentation techniques were used. FINDINGS: There is normal compressibility of the deep venous system from the inguinal region to the proximal ca lf. No echogenic clot is seen in the lumen of the common femoral, femoral, popliteal, and posterior tibial veins. There is a normal response of the venous system to proximal and distal augmentation an d respiration. CONCLUSION: No evidence of DVT Ramez Rey MD on October 15, 2017 at 20:26 Board Certified Radiologist. This report was verified electronically.
[2017-10-15] MEDS: LOSARTAN 25 MG TAB PO SCH (21:08)
[2017-10-15] MEDS: MONTELUKAST SODIUM 10 MG TAB PO SCH (21:08)
[2017-10-16 00:16] VITALS: PULSE 81
[2017-10-16 00:39] VITALS: BP 147/72; PULSE 80; RESP 18; TEMP 97.6; O2SAT 96
[2017-10-16 04:42] VITALS: BP 148/68; PULSE 81; RESP 18; TEMP 98.4; O2SAT 95
[2017-10-16] MEDS: RESP: ALBUTEROL 2.5 MG/IPRATROPIUM 0.5 MG NEB (SCH) NEB ×2 (07:50→11:13)
[2017-10-16] MEDS: RESP: BUDESONIDE 0.5 MG/2 ML NEB NEB SCH (07:50)
[2017-10-16 07:53] VITALS: O2SAT 95
[2017-10-16 08:26] LABS: HEMATOCRIT 38.4 % (39.0-51.0); HEMOGLOBIN 12.7 GM/DL (13.0-17.0); MEAN CELL VOLUME 95.6 FL (80.0-100.0); MEAN CORPUSCULAR HEMOGLOBIN 31.7 PG (27.0-34.0); MEAN CORPUSCULAR HGB CONC 33.1 % (32.0-36.0); MEAN PLATELET VOLUME 7.2 FL (7.0-11.0); PLATELET COUNT 269 TH/MM3 (150-450); RED BLOOD COUNT 4.01 MIL/MM3 (4.50-5.90); RED CELL DISTRIBUTION WIDTH 15.9 % (11.6-17.2); WHITE BLOOD COUNT 25.2 TH/MM3 (4.0-11.0)
[2017-10-16 08:44] LABS: BICARBONATE 32.2 MEQ/L (21.0-32.0); CALCIUM 9.1 MG/DL (8.5-10.1); CREATININE 1.09 MG/DL (0.60-1.30)
[2017-10-16 08:45] VITALS: BP 158/74; PULSE 82; RESP 18; TEMP 97.7; O2SAT 93
[2017-10-16] MEDS: POTASSIUM CHLORIDE 10 MEQ CONTROLLED RELEASE TAB PO SCH (08:55)
[2017-10-16] MEDS: buPROPion HCL 150 MG SUSTAINED RELEASE TAB PO SCH (08:55)
[2017-10-16] MEDS: predniSONE 10 MG TAB PO SCH (08:55)
[2017-10-16] MEDS: hydrALAZINE HCL 25 MG TAB PO SCH (08:55)
--- NOTE | 2017-10-16 09:59 | HHI.PR ---
Subjective Remarks eager for d/c says he is back to baseline breathing no fever/chillls/diarrhea. Objective Vitals heart reg lung basilar crackles abd s/nt ext no edema Vital Signs Date Time Temp Pulse Resp B/P (MAP) Pulse Ox O2 Delivery O2 Flow Rate FiO2 10/16/17 08:45 97.7 82 18 158/74 (102) 93 10/16/17 07:53 95 Nasal Cannula 2.00 10/16/17 04:42 98.4 81 18 148/68 (94) 95 10/16/17 00:39 97.6 80 18 147/72 (97) 96 10/16/17 00:16 81 10/15/17 20:54 98.1 77 18 155/72 (99) 97 10/15/17 20:37 86 Nasal Cannula 2.00 10/15/17 20:23 78 10/15/17 16:38 98.2 75 20 138/80 (99) 95 10/15/17 15:35 76 10/15/17 11:42 98.2 78 20 137/64 (88) 95 10/15/17 10:13 79 Result Diagram: 10/16/17 0753 10/16/17 0753 A/P Problem List: (1) SOB (shortness of breath) ICD Codes: R06.02 - Shortness of breath Status: Acute Plan: 1. acute sob/peripheral edema. volume overloaded. ?diastolic chf. pt with severe elevation of bp prior to arrival. no obvious pneumonia severe copd/o2/steroid dep. but this doesn't appear to be a copd flare ember..cont cpap his previous recurrent right pleural effusion has not returned. s/p VATS 2. Leukocytosis. unclear etiology. pt chronically on steroids but wbc not typically this high ?stress related. no fever or obvious infection to account for it. recent abx use but no diarrhea currently 27k,..23,...then 25k..... 3. htn..improved. plan discussed with cardiology. mild diastolic dysfunction and I suspect in setting of recent attempts at steroid weaning, respiratory distress, elevation of htn he developed decompensation and fluid overload. Feels much better after diuresis. bp ok. reviewed CT chest with his cardiothoracic surgeon dr Brittany Vasques...we agreed that his right lower lung finding are likely scar/ atelectasis/change from talc.. but we don't feel it to be infectious appearing at this point. I have had a discussion with him about daily weight and extra lasix as needed. also discussed with wbc count. will discuss with pcp..recheck this week Wed....if still elevated consider hematology evaluation. d/c today with close f/u. (2) Edema ICD Codes: R60.9 - Edema, unspecified Status: Acute (3) Distended abdomen ICD Codes: R14.0 - Abdominal distension (gaseous) Status: Acute (4) COPD (chronic obstructive pulmonary disease) ICD Codes: J44.9 - Chronic obstructive pulmonary disease Status: Chronic (5) HTN (hypertension) ICD Codes: I10 - HTN (hypertension) Status: Chronic (6) Spinal stenosis, lumbar ICD Codes: M48.06 - Spinal stenosis, lumbar Status: Chronic Kai Jennings MD Oct 16, 2017 09:58
[2017-10-16] MEDS ORDERED: FUROSEMIDE 40 MG TAB PO ONE (10:00)
--- NOTE | 2017-10-16 10:01 | HHI.DCPOC ---
Discharge Care Plan Diagnosis: (1) Diastolic dysfunction (2) Leukocytosis (3) HTN (hypertension) (4) COPD exacerbation (5) JEFFERSON on CPAP (6) Spinal stenosis, lumbar Goals to Promote Your Health * To prevent worsening of your condition and complications * To maintain your health at the optimal level Directions to Meet Your Goals Take your medications as prescribed Follow your dietary instruction Follow activity as directed Keep your appointments as scheduled Take your immunizations and boosters as scheduled If your symptoms worsen call your PCP, if no PCP go to Urgent Care Center or Emergency Room Smoking is Dangerous to Your Health. Avoid second hand smoke Call the 24-hour hour crisis hotline for domestic abuse at Kai Jennings MD Oct 16, 2017 10:01
[2017-10-16 10:15] LABS: BANDS 12 % (0-6); BASOPHILS 3 % (0-2); LYMPHOCYTES 8 % (9-44); METAMYELOCYTES 1 % (0-1); MONOCYTES 4 % (0-8); MYELOCYTES 4 % (0-0); NEUTROPHIL # MANUAL DIFF 21.4 TH/MM3 (1.8-7.7); POLYS (SEG NEUTROPHILS) 68 % (16-70)
== END 2017-10-16 11:55 | disposition home or self-care (01) | DRG 293 ==
LOC: NEPC 11:39 → NEDA 13:20 → N05B 15:03
PROVIDERS: ADMIT Hospitalist; ATTEND Hospitalist
DX: I11.0 Hypertensive heart disease with heart failure (principal); Z99.81 Dependence on supplemental oxygen; E11.9 Type 2 diabetes mellitus without complications; D72.829 Elevated white blood cell count, unspecified; G47.33 Obstructive sleep apnea (adult) (pediatric); M48.061 Spinal stenosis, lumbar region without neurogenic claudication; I50.30 Unspecified diastolic (congestive) heart failure; R60.0 Localized edema; Z79.52 Long term (current) use of systemic steroids; Z87.891 Personal history of nicotine dependence; Z88.8 Allergy status to other drugs, medicaments and biological substances
CPT/HCPCS: 71045; 71250; 74176; 80048; 80053; 81001; 82550; 83880; 84484; 85007; 85027; 85610; 85730; 93005; 93306; 93971; 94640; 96374; J1940; J7512; J7626

== ENCOUNTER 2017-11-26 23:00 | Inpatient (IN) | payer MEDICARE ==
[~2017-11-26] VITALS: Ht 177.8 cm; Wt 120.0 kg
[2017-11-26 23:00] VITALS: O2SAT 96
[~2017-11-26 23:00] MED LIST changes: +ALBU0.08 NEB; -ASPI81TA11 PO; -AZIT250T43 PO; -BISA5TAB5 PO; -BRIM0.2S EACH EYE; -BUDE0.5S INH; +BUDESONIDE NEB; -CEPH500C3 PO; -CO Q100C9 PO; -DUONI NEB; -FORM12I INH; +FORMOTEROL NEB; +FURO1TAB62 PO; -GLUC750T13 PO; -GUAI600 PO; +GUAI600T11 PO; +HYDR-3800 PO; -HYDR50TA15 PO; +IBUP200T47 PO; +IPRA0.02 NEB; +K-TA10TA PO; -LISI-366 PO; -LORA10TA PO; -LORTA5 PO; +LOSA25TA PO; +MONT10TA2 PO; -MOTR200T PO; +MULT1TAB50 PO; +OXYGEN NAS.CANULA; -PROB1TAB PO; -TAB-TAB PO; +WELLTAB39 PO; -Z.0.OXYGEN INH
[2017-11-26 23:06] VITALS: BP 217/104; PULSE 111; RESP 30; TEMP 98.3; O2SAT 96
[2017-11-26 23:08] VITALS: RESP 30; O2SAT 96
[2017-11-26] MEDS ORDERED: methylPREDNISolone SOD SUCC 125 MG/2 ML VIAL IV PUSH ONE (23:15)
[2017-11-26] MEDS ORDERED: NITROGLYCERIN 2% OINT 1 GM PACKET TOPICAL ONE (23:30)
[2017-11-26] MEDS: RESP: ALBUTEROL 2.5 MG/IPRATROPIUM 0.5 MG NEB (SCH) INH ×2 (23:36→23:37)
[2017-11-26 23:39] VITALS: BP 177/81; PULSE 98; RESP 24; O2SAT 99
--- NOTE | 2017-11-26 23:41 | RADRPT ---
EXAM DATE/TIME: 11/26/2017 23:13 [facility] COMPARISON: CHEST SINGLE AP, October 14, 2017, 12:26. INDICATIONS : Shortness of breath. MEDICAL HISTORY : Chronic obstructive pulmonary disease. Hypertension Diabetes mellitus type II. SURGICAL HISTORY : None. ENCOUNTER: Initial ACUITY: 1 day PAIN SCORE: 0/10 LOCATION: Bilateral chest FINDINGS: A single AP erect view of the chest was obtained and demonstrates chronic scarring at the right lung base with blunting of the right costophrenic angle. There are no new confluent infiltrates or effusio ns. The heart size remains at the upper limits of normal with no perihilar edema. The bony thorax is intact. Overlying electrocardiogram leads. CONCLUSION: 1. Chronic scarring at the right lung base. 2. No acute infiltrates. William Galvan MD on November 26, 2017 at 23:33 Board Certified Radiologist. This report was verified electronically.
--- NOTE | 2017-11-26 23:41 | PD ---
HPI . Dyspnea Chief Complaint: Respiratory Distress Time Seen by Provider: 23:05 Travel History International Travel<30 days: No Contact w/Intl Traveler<30days: No Traveled to known affect area: No History of Present Illness HPI This patient presents via [facility] with the chief complaint of acute dyspnea. I actually obtained most of his history from his [id number], Dr. Jennings. The patient has a history of severe COPD which is oxygen and steroid dependent. He also has diastolic dysfunction and obstructive sleep apnea. The patient was treated on scene with BiPAP per the fire department. [facility] treated him with Lasix 60 mg IV and morphine 6 mg IV. He was not treated with any nebs prior to arrival. He has also not yet received any Solu-Medrol. Onset of symptoms has been in the past few days. Symptoms were acutely worse tonight. Symptoms are severe. PFSH Past Medical History Arthritis: Yes Asthma: No Autoimmune Disease: No Blood Disorders: No Anxiety: No Depression: Yes Heart Rhythm Problems: No Cancer: No Cardiovascular Problems: Yes High Cholesterol: No Chemotherapy: No Chest Pain: No Congestive Heart Failure: Yes COPD: Yes Cerebrovascular Accident: No Diabetes: Yes (borderline, does not take medication) Patient Takes Glucophage: Yes Diminished Hearing: No Endocrine: Yes Gastrointestinal Disorders: Yes (RECTAL FISTULA) GERD: No Glaucoma: No Genitourinary: No Headaches: No Hepatitis: No Hiatal Hernia: Yes Heparin Induced Thrombocytopen: No Hypertension: Yes Immune Disorder: No Implanted Vascular Access Dvce: No Kidney Stones: No Musculoskeletal: Yes Neurologic: No Psychiatric: No Reproductive: No Respiratory: Yes Immunizations Current: No Migraines: No Myocardial Infarction: No Radiation Therapy: No Renal Failure: No Seizures: No Sickle Cell Disease: No Sleep Apnea: Yes (cpap at night) Thyroid Disease: No Ulcer: No Tetanus Vaccination: Unknown Influenza Vaccination: Yes PNEUMOCCOCAL Vaccine (Year): 2 Past Surgical History Abdominal Surgery: No AICD: No Appendectomy: No Arteriovenous Shunt: No Cardiac Surgery: No Cholecystectomy: No Ear Surgery: No Endocrine Surgery: No Eye Surgery: No Genitourinary Surgery: No Gynecologic Surgery: No Insulin Pump: No Joint Replacement: No Neurologic Surgery: No Oral Surgery: No Pacemaker: No Thoracic Surgery: Yes (right lung) Other Surgery: Yes (RECTAL FISTULA REPAIR IN 1984) Social History Alcohol Use: Yes (4-5 BEERS A DAY) Tobacco Use: No (QUIT 4 YEARS AGO) Substance Use: No Allergies-Medications (Allergen,Severity, Reaction): Coded Allergies: latex (Unverified Allergy, Severe, RASH AND ITCHING, 04/20/17) atorvastatin (Unverified Adverse Reaction, Severe, LETHARGY, 04/20/17) hydrochlorothiazide (Unverified Adverse Reaction, Severe, LOW SODIUM LEVEL , 04/20/17) Reported Meds & Prescriptions Reported Meds & Active Scripts Active Reported Prednisone 10 Mg Tab 10 Mg PO DAILY [Oxygen] 2 Liter DAMION.CANULA DAILY PRN Mucus Relief ER (Guaifenesin) 600 Mg Tab 600 Mg PO Q12HR PRN Singulair (Montelukast Sodium) 10 Mg Tab 10 Mg PO HS Losartan (Losartan Potassium) 25 Mg Tab 25 Mg PO DAILY K-Tab (Potassium Chloride) 10 Meq Tab 10 Meq PO DAILY Ipratropium Neb (Ipratropium Conover) 0.5 Mg/2.5 Ml Amp 0.5 Mg NEB QID Ibuprofen 200 Mg Tab 200 Mg PO BID Hydralazine HCl 50 Mg Tablet 75 Mg PO TID Lasix (Furosemide) 20 Mg Tab 20 Mg PO BID [Formot/Budesonide] 3 Ml NEB BID FORMOTEROL 12MCG/BUDESONIDE 0.5MG/3ML NEB SOLUTION Centrum Men's Tablet (Multivit-Mins/Iron/Folic/Lycop) 8 Mg Iron-200 Mcg-600 Mcg Tablet 1 Tab PO DAILY Wellbutrin Xl 24 HR (Bupropion HCl) 300 Mg Tab 300 Mg PO DAILY Albuterol Neb (Albuterol Sulfate) 2.5 Mg/3 Ml Neb 2.5 Mg NEB QID NEB PRN Review of Systems ROS Limitations: Clinical Condition Except as stated in HPI: all other systems reviewed are Neg General / Constitutional: No: Fever, Chills Respiratory: Positive: Cough, Shortness of Breath, Wheezing Physical Exam Narrative GENERAL: Patient is awake and alert and fully oriented. SKIN: warm/dry. HEAD: Normocephalic. Atraumatic. EYES: Pupils equal and round. No scleral icterus. No injection or drainage. ENT: No nasal bleeding or discharge. Mucous membranes pink and moist. NECK: Trachea midline. Full range of motion without pain.. CARDIOVASCULAR: Regular rate and rhythm. RESPIRATORY: Breath sounds decreased. Diffuse rhonchi and rales. MUSCULOSKELETAL: No obvious deformities. 2+ pretibial pitting edema. NEUROLOGICAL: Awake and alert. No obvious cranial nerve deficits. Motor grossly within normal limits. Normal speech. PSYCHIATRIC: Appropriate mood and affect; insight and judgment normal. Data Data Last Documented VS Vital Signs Date Time Temp Pulse Resp B/P (MAP) Pulse Ox O2 Delivery O2 Flow Rate FiO2 11/26/17 23:39 98 24 177/81 (113) 99 CPAP 11/26/17 23:06 98.3 Orders Orders Complete Blood Count With Diff (11/26/17 23:05) Basic Metabolic Panel (Bmp) (11/26/17 23:05) B-Type Natriuretic Peptide (11/26/17 23:05) Act Partial Throm Time (Ptt) (11/26/17 23:05) Prothrombin Time / Inr (Pt) (11/26/17 23:05) Magnesium (Mg) (11/26/17 23:05) Troponin I (11/26/17 23:05) Arterial Blood Gas (Abg) (11/26/17 23:05) Iv Access Insert/Monitor (11/26/17 23:05) Electrocardiogram (11/26/17 23:05) Ecg Monitoring (11/26/17 23:05) Oximetry (11/26/17 23:05) Oxygen Administration (11/26/17 23:05) Chest, Single Ap (11/26/17 23:05) Sodium Chloride 0.9% Flush (Ns Flush) (11/26/17 23:15) Methylprednisolone So Succ Inj (Solumedr (11/26/17 23:15) Resp Bipap / Cpap Non Invas Vt (11/26/17 ) Albuterol-Ipratropium Neb (Duoneb Neb) (11/26/17 23:15) Nitroglycerin 2% Oint (Nitroglycerin 2% (11/26/17 23:30) Ondansetron Inj (Zofran Inj) (11/26/17 23:45) Ondansetron Inj (Zofran Inj) (11/26/17 23:43) Admit Order (Ed Use Only) (11/26/17 23:50) Labs Laboratory Tests Test 11/26/17 23:17 White Blood Count 57.3 TH/MM3 Red Blood Count 4.01 MIL/MM3 Hemoglobin 12.7 GM/DL Hematocrit 38.0 % Mean Corpuscular Volume 94.8 FL Mean Corpuscular Hemoglobin 31.7 PG Mean Corpuscular Hemoglobin Concent 33.4 % Red Cell Distribution Width 16.1 % Platelet Count 393 TH/MM3 Mean Platelet Volume 7.4 FL Neutrophils (%) (Auto) 86.7 % Lymphocytes (%) (Auto) 6.0 % Monocytes (%) (Auto) 6.1 % Eosinophils (%) (Auto) 0.2 % Basophils (%) (Auto) 1.0 % Neutrophils # (Auto) 49.7 TH/MM3 Lymphocytes # (Auto) 3.4 TH/MM3 Monocytes # (Auto) 3.5 TH/MM3 Eosinophils # (Auto) 0.1 TH/MM3 Basophils # (Auto) 0.6 TH/MM3 CBC Comment AUTO DIFF Prothrombin Time 10.8 SEC Prothromb Time International Ratio 1.1 RATIO Activated Partial Thromboplast Time 24.5 SEC Blood Urea Nitrogen 18 MG/DL Creatinine 1.34 MG/DL Random Glucose 169 MG/DL Calcium Level 9.2 MG/DL Magnesium Level 2.0 MG/DL Sodium Level 137 MEQ/L Potassium Level 4.7 MEQ/L Chloride Level 96 MEQ/L Carbon Dioxide Level 31.6 MEQ/L Anion Gap 9 MEQ/L Estimat Glomerular Filtration Rate 53 ML/MIN Troponin I LESS THAN 0.02 NG/ML B-Type Natriuretic Peptide 21 PG/ML MDM Medical Decision Making Medical Screen Exam Complete: Yes Emergency Medical Condition: Yes Medical Record Reviewed: Yes (medical history of COPD, JEFFERSON, diastolic CHF, hypertension.) Interpretation(s) Underlying sinus rhythm. There is too much artifact to be able to tell anything else about this EKG. Differential Diagnosis Differential diagnosis of dyspnea includes but is not limited to congestive heart failure, pneumonia, wheezing, pneumothorax, pulmonary embolism Narrative Course This patient presents to us by [facility] in respiratory distress on BiPAP. He has a history of COPD. Us so has a history of diastolic dysfunction, possible cor pulmonale. He has had increasing shortness of breath over the last few days and it became acutely worse tonight. The patient was placed on BiPAP by the fire department. He was given Lasix 60 mg IV and morphine 6 mg IV per [facility]. The patient has been given Solu-Medrol and Nitropaste here. He is receiving duo nebs. CXR: 1. Chronic scarring at the right lung base. 2. No acute infiltrates. The chest x-ray was independently viewed by me. CBC & BMP Diagram 11/26/17 23:17 Calcium Level 9.2, Magnesium Level 2.0 This patient has chronic leukocytosis although it is much worse tonight than usual. BNP and troponin are normal. This patient has had an amazing turnaround in the emergency department. Treatment included BiPAP, Lasix and morphine per EMS. Then he had Solu-Medrol, stacked DuoNeb and Nitropaste in the emergency department. The respiratory therapist was able to wean him off of BiPAP onto nasal cannula oxygen very rapidly. Critical Care Narrative Aggregate critical care time was 30 minutes. Time to perform other separately billable procedures was not included in the critical care time. My time did not include minutes spent treating any other patients simultaneously or on activities that did not directly contribute to the patient's treatment. The services I provided to this patient were to treat and/or prevent clinically significant deterioration due to respiratory distress I provided critical care services requiring my management, as noted below: Chart data review, documentation time, medication orders and management, vital sign assessments/reviewing monitor data, ordering and reviewing lab tests, ordering and interpreting/reviewing x-rays and diagnostic studies, care of the patient and discussion of the patient with the admitting physicians Diagnosis Primary Impression: Respiratory distress Additional Impression: COPD (chronic obstructive pulmonary disease) Qualified Codes: J44.1 - Chronic obstructive pulmonary disease with (acute) exacerbation Admitting Information Admitting Physician Requests: Admit Condition: Stable Katie Real MD Nov 26, 2017 23:41
[2017-11-26 23:43] LABS: AUTOMATED NEUTROPHIL # 49.7 TH/MM3 (1.8-7.7); BASOPHIL # 0.6 TH/MM3 (0-0.2); EOSINOPHIL # 0.1 TH/MM3 (0-0.4); EOSINOPHIL % 0.2 % (0.0-4.0); HEMOGLOBIN 12.7 GM/DL (13.0-17.0); LYMPHOCYTE # 3.4 TH/MM3 (1.0-4.8); MEAN CELL VOLUME 94.8 FL (80.0-100.0); MEAN CORPUSCULAR HEMOGLOBIN 31.7 PG (27.0-34.0); MEAN CORPUSCULAR HGB CONC 33.4 % (32.0-36.0); MEAN PLATELET VOLUME 7.4 FL (7.0-11.0); MONO % 6.1 % (0.0-8.0); MONOCYTE # 3.5 TH/MM3 (0-0.9); NEUT % 86.7 % (16.0-70.0); PLATELET COUNT 393 TH/MM3 (150-450); RED BLOOD COUNT 4.01 MIL/MM3 (4.50-5.90); RED CELL DISTRIBUTION WIDTH 16.1 % (11.6-17.2); WHITE BLOOD COUNT 57.3 TH/MM3 (4.0-11.0)
[2017-11-26] MEDS ORDERED: ONDANSETRON HCL 4 MG/2 ML VIAL ONE (23:43)
[2017-11-26 23:45] VITALS: O2SAT 93
[2017-11-26] MEDS ORDERED: ONDANSETRON HCL 4 MG/2 ML VIAL IV PUSH ONE (23:45)
[2017-11-26] MEDS: SODIUM CHLORIDE 0.9% FLUSH 10 ML FLUSH IVF PRN (23:50)
[2017-11-26 23:58] LABS: INTERNATIONAL NORMALIZED RATIO 1.1 RATIO; PROTHROMBIN TIME - PATIENT 10.8 SEC (9.8-11.6)
[2017-11-27] VITALS (9 sets, daily range): BP systolic 139–165; BP diastolic 63–79; PULSE 75–96; RESP 16–22; TEMP 96.9–97.8; O2SAT 92–98
[2017-11-27] MEDS ORDERED: cloNIDine HCL 0.1 MG TAB PO PRN
[2017-11-27] MEDS ORDERED: RESP: BUDESONIDE 0.5 MG/2 ML NEB NEB ONE
[2017-11-27] MEDS ORDERED: guaiFENesin E.R. 600 MG TAB PO PRN
[2017-11-27] MEDS ORDERED: ONDANSETRON HCL 4 MG/2 ML VIAL IV PUSH PRN
--- NOTE | 2017-11-27 00:01 | HHI.HP ---
HPI Service [facility] Hospitalists Primary Care Physician Rafat Leblanc D.O. Admission Diagnosis acute exacerbation of COPD with resp distress Travel History International Travel<30 Days: No Contact w/Intl Traveler <30 Da: No Traveled to Known Affected Are: No Past Family Social History Allergies: Coded Allergies: latex (Unverified Allergy, Severe, RASH AND ITCHING, 04/20/17) atorvastatin (Unverified Adverse Reaction, Severe, LETHARGY, 04/20/17) hydrochlorothiazide (Unverified Adverse Reaction, Severe, LOW SODIUM LEVEL , 04/20/17) Physical Exam Vital Signs Vital Signs Date Time Temp Pulse Resp B/P (MAP) Pulse Ox O2 Delivery O2 Flow Rate FiO2 11/26/17 23:39 98 24 177/81 (113) 99 CPAP 11/26/17 23:08 30 96 CPAP 11/26/17 23:08 96 CPAP 11/26/17 23:06 98.3 111 30 217/104 (141) 96 11/26/17 23:02 113 28 97 CPAP Physical Exam GENERAL: This is a well-nourished, well-developed patient, in no apparent distress. SKIN: No rashes, ecchymoses or lesions. Cool and dry. HEAD: Atraumatic. Normocephalic. No temporal or scalp tenderness. EYES: Pupils equal round and reactive. Extraocular motions intact. No scleral icterus. No injection or drainage. ENT: Nose without bleeding, purulent drainage or septal hematoma. Throat without erythema, tonsillar hypertrophy or exudate. Uvula midline. Airway patent. NECK: Trachea midline. No JVD or lymphadenopathy. Supple, nontender, no meningeal signs. CARDIOVASCULAR: Regular rate and rhythm without murmurs, gallops, or rubs. RESPIRATORY: Clear to auscultation. Breath sounds equal bilaterally. No wheezes , rales, or rhonchi. GASTROINTESTINAL: Abdomen soft, non-tender, nondistended. No hepato-splenomegaly , or palpable masses. No guarding. MUSCULOSKELETAL: Extremities without clubbing, cyanosis, or edema. No joint tenderness, effusion, or edema noted. No calf tenderness. Negative Homans sign bilaterally. NEUROLOGICAL: Awake and alert. Cranial nerves II through XII intact. Motor and sensory grossly within normal limits. Five out of 5 muscle strength in all muscle groups. Normal speech. Laboratory Laboratory Tests Test 11/26/17 23:17 White Blood Count 57.3 Red Blood Count 4.01 Hemoglobin 12.7 Hematocrit 38.0 Mean Corpuscular Volume 94.8 Mean Corpuscular Hemoglobin 31.7 Mean Corpuscular Hemoglobin Concent 33.4 Red Cell Distribution Width 16.1 Platelet Count 393 Mean Platelet Volume 7.4 Neutrophils (%) (Auto) 86.7 Lymphocytes (%) (Auto) 6.0 Monocytes (%) (Auto) 6.1 Eosinophils (%) (Auto) 0.2 Basophils (%) (Auto) 1.0 Neutrophils # (Auto) 49.7 Lymphocytes # (Auto) 3.4 Monocytes # (Auto) 3.5 Eosinophils # (Auto) 0.1 Basophils # (Auto) 0.6 CBC Comment AUTO DIFF Prothrombin Time 10.8 Prothromb Time International Ratio 1.1 Activated Partial Thromboplast Time 24.5 Result Diagram: 11/26/17 2206 Caprini VTE Risk Assessment Caprini Risk Assessment Model Point Value = 1 Point Value = 2 Point Value = 3 Point Value = 5 Age 41-60 Minor surgery BMI > 25 kg/m2 Swollen legs Varicose veins or History of unexplained or recurrent spontaneous Oral contraceptives or hormone replacement Sepsis (< 1 month) Serious lung disease, including pneumonia (< 1 month) Abnormal pulmonary function Acute myocardial infarction Congestive heart failure (< 1 month) History of inflammatory bowel disease Medical patient at bed rest Age 61-74 Arthroscopic surgery Major open surgery (> 45 min) Laparoscopic surgery (> 45 min) Malignancy Confined to bed (> 72 hours) Immobilizing plaster cast Central venous access Age >= 75 History of VTE Family history of VTE Factor V Leiden Prothrombin [id number] Lupus anticoagulant Anticardiolipin antibodies Elevated serum homocysteine Heparin-induced thrombocytopenia Other congenital or acquired thrombophilia Stroke (< 1 month) Elective arthroplasty Hip, pelvis, or leg fracture Acute spinal cord injury (< 1 month) Prophylaxis Regimen Total Risk Factor Score Risk Level Prophylaxis Regimen 0-1 Low Early ambulation 2 Moderate Order ONE of the following: *Sequential Compression Device (SCD) *Heparin 5000 units SQ BID 3-4 Higher Order ONE of the following medications: *Heparin 5000 units SQ TID *Enoxaparin/Lovenox 40 mg SQ daily (WT < 150 kg, CrCl > 30 mL/min) *Enoxaparin/Lovenox 30 mg SQ daily (WT < 150 kg, CrCl > 10-29 mL/min) *Enoxaparin/Lovenox 30 mg SQ BID (WT < 150 kg, CrCl > 30 mL/min) AND/OR *Sequential Compression Device (SCD) 5 or more Highest Order ONE of the following medications: *Heparin 5000 units SQ TID (Preferred with Epidurals) *Enoxaparin/Lovenox 40 mg SQ daily (WT < 150 kg, CrCl > 30 mL/min) *Enoxaparin/Lovenox 30 mg SQ daily (WT < 150 kg, CrCl > 10-29 mL/min) *Enoxaparin/Lovenox 30 mg SQ BID (WT < 150 kg, CrCl > 30 mL/min) AND *Sequential Compression Device (SCD) Kai Jennings MD Nov 27, 2017 00:01
[2017-11-27 00:02] LABS: TROPONIN I LESS THAN 0.02 NG/ML (0.02-0.05)
[2017-11-27 00:14] LABS: BICARBONATE 31.6 MEQ/L (21.0-32.0); BLOOD UREA NITROGEN 18 MG/DL (7-18); CALCIUM 9.2 MG/DL (8.5-10.1); CHLORIDE 96 MEQ/L (98-107); CREATININE 1.34 MG/DL (0.60-1.30); GLOMERULAR FILTRATION RATE 53 ML/MIN (>89); GLUCOSE,RANDOM 169 MG/DL (74-106); SODIUM (NA) 137 MEQ/L (136-145)
--- NOTE | 2017-11-27 00:17 | HHI.HP ---
HPI Service CP Hospitalists Primary Care Physician Rafat Leblanc D.O. Admission Diagnosis acute exacerbation of COPD with resp distress Chief Complaint: sob Travel History International Travel<30 Days: No Contact w/Intl Traveler <30 Da: No Traveled to Known Affected Are: No History of Present Illness Pt is 67 yo with severe copd/o2/steroid dependent, jefferson/cpap, cor pulmonale, htn , chronic back pain, and recently identified diastolic chf and leukocytosis Pt recently has CHUNG w/in last month and agaiin yesterday and had been overall feeling much better. Was admitted last month for diastolic chf exacerbation. Found to have wbc 25k and sent to supervisor cold rolling 2 days ago. Question of reactive wbc but concern for lymphoproliferative or myeloproliferative dz. studies are pending from peripheral blood. Pt was more sob today and unresponsive to nebs. He was unable to ambulate to his car and EMS found his cpap tubing to be disconnected. EMS brought him on bipap and given 60mg iv lasix in route. given nebs/solumedrol her and seems to be calming down. now on 4lnc and calmer. No fever or chills. no diarrhea but just vomited. His sbp 230 on arrival. wbc now 57 k. Review of Systems Other sob Past Family Social History Past Medical History jefferson/cpap severe copd..sees Dr Ferguson fev1 around 28 recurrent right exudative pleural effusion..s/p extensive eval . no conclusive etiology.. ?parapneumonic effusion..pet/ct neg/cytology neg right VATS and pleurodesis 2015. htn leukocytosis unclear etiology hx perineal abscess requiring I/D with subsequent colonoscopy with Dr Burkett. Left lung granulomatous mass/presumed to be Histoplasmosis given he grew up [facility] s/p bronchoscopy with Dr Fergsuon. has been dx with dm2 in past..but controlled with diet. hyponatremia L1 to L5 foramen stenosis mod/severe worse on left..radiculopathy in the past. recent CHUNG. echo and lexiscan in november 2014 normal lvf and no ischemia Reported Medications Prednisone 10 Mg Tab 10 Mg PO DAILY [Oxygen] 2 Liter DAMION.CANULA DAILY PRN Mucus Relief ER (Guaifenesin) 600 Mg Tab 600 Mg PO Q12HR PRN Singulair (Montelukast Sodium) 10 Mg Tab 10 Mg PO HS Losartan (Losartan Potassium) 25 Mg Tab 25 Mg PO DAILY K-Tab (Potassium Chloride) 10 Meq Tab 10 Meq PO DAILY Ipratropium Neb (Ipratropium [place]) 0.5 Mg/2.5 Ml Amp 0.5 Mg NEB QID Ibuprofen 200 Mg Tab 200 Mg PO BID Hydralazine HCl 50 Mg Tablet 75 Mg PO TID Lasix (Furosemide) 20 Mg Tab 20 Mg PO BID [Formot/Budesonide] 3 Ml NEB BID FORMOTEROL 12MCG/BUDESONIDE 0.5MG/3ML NEB SOLUTION Centrum Men's Tablet (Multivit-Mins/Iron/Folic/Lycop) 8 Mg Iron-200 Mcg-600 Mcg Tablet 1 Tab PO DAILY Wellbutrin Xl 24 HR (Bupropion HCl) 300 Mg Tab 300 Mg PO DAILY Albuterol Neb (Albuterol Sulfate) 2.5 Mg/3 Ml Neb 2.5 Mg NEB QID NEB PRN Allergies: Coded Allergies: latex (Unverified Allergy, Severe, RASH AND ITCHING, 04/20/17) atorvastatin (Unverified Adverse Reaction, Severe, LETHARGY, 04/20/17) hydrochlorothiazide (Unverified Adverse Reaction, Severe, LOW SODIUM LEVEL , 04/20/17) Family History mother breast ca Social History Social History lifelong smoker. quit about 10yrs ago occ/social etoh. Physical Exam Vital Signs severe respiratory distress on bipap initially bilateral rhonci and wheezing awake and oriented heart reg/tach abd distended/bs ext 2 plus edema Vital Signs Date Time Temp Pulse Resp B/P (MAP) Pulse Ox O2 Delivery O2 Flow Rate FiO2 11/26/17 23:39 98 24 177/81 (113) 99 CPAP 11/26/17 23:08 30 96 CPAP 11/26/17 23:08 96 CPAP 11/26/17 23:06 98.3 111 30 217/104 (141) 96 11/26/17 23:02 113 28 97 CPAP Laboratory Laboratory Tests Test 11/26/17 23:17 White Blood Count 57.3 Red Blood Count 4.01 Hemoglobin 12.7 Hematocrit 38.0 Mean Corpuscular Volume 94.8 Mean Corpuscular Hemoglobin 31.7 Mean Corpuscular Hemoglobin Concent 33.4 Red Cell Distribution Width 16.1 Platelet Count 393 Mean Platelet Volume 7.4 Neutrophils (%) (Auto) 86.7 Lymphocytes (%) (Auto) 6.0 Monocytes (%) (Auto) 6.1 Eosinophils (%) (Auto) 0.2 Basophils (%) (Auto) 1.0 Neutrophils # (Auto) 49.7 Lymphocytes # (Auto) 3.4 Monocytes # (Auto) 3.5 Eosinophils # (Auto) 0.1 Basophils # (Auto) 0.6 CBC Comment AUTO DIFF Prothrombin Time 10.8 Prothromb Time International Ratio 1.1 Activated Partial Thromboplast Time 24.5 Troponin I LESS THAN 0.02 B-Type Natriuretic Peptide 21 Result Diagram: 11/26/17 7427 Caprini VTE Risk Assessment Caprini VTE Risk Assessment: Mod/High Risk (score >= 2) Caprini Risk Assessment Model Point Value = 1 Point Value = 2 Point Value = 3 Point Value = 5 Age 41-60 Minor surgery BMI > 25 kg/m2 Swollen legs Varicose veins or History of unexplained or recurrent spontaneous Oral contraceptives or hormone replacement Sepsis (< 1 month) Serious lung disease, including pneumonia (< 1 month) Abnormal pulmonary function Acute myocardial infarction Congestive heart failure (< 1 month) History of inflammatory bowel disease Medical patient at bed rest Age 61-74 Arthroscopic surgery Major open surgery (> 45 min) Laparoscopic surgery (> 45 min) Malignancy Confined to bed (> 72 hours) Immobilizing plaster cast Central venous access Age >= 75 History of VTE Family history of VTE Factor V Leiden Prothrombin [id number] Lupus anticoagulant Anticardiolipin antibodies Elevated serum homocysteine Heparin-induced thrombocytopenia Other congenital or acquired thrombophilia Stroke (< 1 month) Elective arthroplasty Hip, pelvis, or leg fracture Acute spinal cord injury (< 1 month) Prophylaxis Regimen Total Risk Factor Score Risk Level Prophylaxis Regimen 0-1 Low Early ambulation 2 Moderate Order ONE of the following: *Sequential Compression Device (SCD) *Heparin 5000 units SQ BID 3-4 Higher Order ONE of the following medications: *Heparin 5000 units SQ TID *Enoxaparin/Lovenox 40 mg SQ daily (WT < 150 kg, CrCl > 30 mL/min) *Enoxaparin/Lovenox 30 mg SQ daily (WT < 150 kg, CrCl > 10-29 mL/min) *Enoxaparin/Lovenox 30 mg SQ BID (WT < 150 kg, CrCl > 30 mL/min) AND/OR *Sequential Compression Device (SCD) 5 or more Highest Order ONE of the following medications: *Heparin 5000 units SQ TID (Preferred with Epidurals) *Enoxaparin/Lovenox 40 mg SQ daily (WT < 150 kg, CrCl > 30 mL/min) *Enoxaparin/Lovenox 30 mg SQ daily (WT < 150 kg, CrCl > 10-29 mL/min) *Enoxaparin/Lovenox 30 mg SQ BID (WT < 150 kg, CrCl > 30 mL/min) AND *Sequential Compression Device (SCD) Assessment and Plan Problem List: (1) COPD exacerbation ICD Codes: J44.1 - COPD exacerbation Status: Acute Plan: 1. acute copd exacerbation. o2 and steroid dependent. 2. cor pulmonale 3. diasollic chf with exacerbation 4. jefferson on cpap 5. severe leukocytosis. quickly rising over past 1-2months now 57k...unclear if he has undiagnosed lymph/myeloproliferative d/o no obvious infection but will consider chronic lung infection no diarrhea to suggest c.diff colitis. his supervisor cold rolling was considering reactive. 6 . severe htn with elevation systolic 230 on arrival. due to respiratory distress 7. anxiety/depression. 8. Lumbar spinal stenosis with CHUNG 2 days ago. bipap in ED and wean to nasal cannula. convert to his cpap at night cont iv lasix and monitor his bmp cont iv solumedrol/nebs/budesonide and broad abx to cover for bronchitis dvt prophylaxis monitor wbc and will consider further discussion with hematology on this admission. (2) Cor pulmonale ICD Codes: I27.81 - Cor pulmonale (chronic) Status: Acute (3) Diastolic dysfunction ICD Codes: I51.9 - Heart disease, unspecified Status: Acute (4) Leukocytosis ICD Codes: D72.829 - Elevated white blood cell count, unspecified Status: Acute (5) JEFFERSON on CPAP ICD Codes: G47.33 - JEFFERSON on CPAP Status: Chronic (6) Spinal stenosis, lumbar ICD Codes: M48.06 - Spinal stenosis, lumbar Status: Chronic (7) HTN (hypertension) ICD Codes: I10 - HTN (hypertension) Status: Chronic Physician Certification 2 Midnight Certification Type: Admission for Inpatient Services Order for Inpatient Services 3The services are ordered in accordance with Medicare regulations or non- Medicare payer requirements, as applicable. In the case of services not specified as inpatient-only, they are appropriately provided as inpatient services in accordance with the 2-midnight benchmark. Estimated LOS (days): 3 3 days is the estimated time the patient will need to remain in the hospital, assuming treatment plan goals are met and no additional complications. Post-Hospital Plan: Home Kai Jennings MD Nov 27, 2017 00:17
[2017-11-27] MEDS: PIPERACIL-TAZO 3.375 GM PREMIX 50 ML IV SCH ×5 (00:29→23:39)
[2017-11-27] MEDS: LEVOFLOXACIN 500 MG PREMIX INJ 100 ML IV SCH ×2 (00:30→22:23)
[2017-11-27] MEDS ORDERED: ACETAMINOPHEN 325 MG TAB PO PRN (00:30)
[2017-11-27 00:44] LABS: BANDS 14 % (0-6); BASOPHILS 2 % (0-2); CORRECTED NUCLEATED RBC 4 /100 WBC (0-0); LYMPHOCYTES 11 % (9-44); METAMYELOCYTES 5 % (0-1); MONOCYTES 5 % (0-8); MYELOCYTES 6 % (0-0); NUCLEATED RED BLOOD CELL 4 (0-0); POLYS (SEG NEUTROPHILS) 56 % (16-70); PROMYELOCYTES 1 % (0-0)
[2017-11-27 00:47] LABS: POLYCHROMASIA 2.2 % (0.0-1.9)
[2017-11-27] MEDS: RESP: ALBUTEROL 2.5 MG/IPRATROPIUM 0.5 MG NEB (SCH) NEB ×6 (02:49→21:35)
--- NOTE | 2017-11-27 07:29 | HHI.PR ---
Subjective Remarks sleeping when I arrived awakens easily says he feels much better breathing easier. not much sleep last night Objective Vitals cpap heart reg lung mostly clear anteriorly abd mild distention. bs ext 2plus edema ble Vital Signs Date Time Temp Pulse Resp B/P (MAP) Pulse Ox O2 Delivery O2 Flow Rate FiO2 11/27/17 05:03 80 18 139/75 (96) 97 Nasal Cannula 4.00 11/27/17 01:15 95 CPAP 5.00 11/27/17 01:00 96 22 142/65 (90) 93 Nasal Cannula 4.00 11/26/17 23:45 93 Nasal Cannula 4.00 11/26/17 23:39 98 24 177/81 (113) 99 CPAP 11/26/17 23:08 30 96 CPAP 11/26/17 23:08 96 CPAP 11/26/17 23:06 98.3 111 30 217/104 (141) 96 11/26/17 23:02 113 28 97 CPAP 11/26/17 23:00 96 50 Result Diagram: 11/26/17231611/26/172316 A/P Problem List: (1) COPD exacerbation ICD Codes: J44.1 - COPD exacerbation Status: Acute Plan: 1. acute copd exacerbation. o2 and steroid dependent. 2. cor pulmonale 3. diasollic chf with exacerbation 4. ember on cpap 5. severe leukocytosis. quickly rising over past 1-2months now 57k...unclear if he has undiagnosed lymph/myeloproliferative d/o no obvious infection but will consider chronic lung infection no diarrhea to suggest c.diff colitis. his distribution collection operator was considering reactive. 6 . severe htn with elevation systolic 230 on arrival. due to respiratory distress 7. anxiety/depression. 8. Lumbar spinal stenosis with CHUNG 2 days ago. cont solumedrol/nebs/budesonide/broad abx to cover for bronchitis cont lasix and adjust per edema and renal function cont cpap at night and o2 dvt prophylaxis monitor wbc and will consider further discussion with hematology on this admission. (2) Diastolic dysfunction ICD Codes: I51.9 - Heart disease, unspecified Status: Acute (3) Leukocytosis ICD Codes: D72.829 - Elevated white blood cell count, unspecified Status: Acute (4) EMBER on CPAP ICD Codes: G47.33 - EMBER on CPAP Status: Chronic (5) Spinal stenosis, lumbar ICD Codes: M48.06 - Spinal stenosis, lumbar Status: Chronic (6) HTN (hypertension) ICD Codes: I10 - HTN (hypertension) Status: Chronic Kai Jennings MD Nov 27, 2017 07:29
[2017-11-27] MEDS: methylPREDNISolone SOD SUCC 125 MG/2 ML VIAL IV PUSH SCH ×4 (07:34→22:23)
[2017-11-27] MEDS ORDERED: FUROSEMIDE 20 MG/2 ML VIAL IV PUSH SCH (09:00)
[2017-11-27] MEDS: LOSARTAN 25 MG TAB PO SCH (09:00)
[2017-11-27] MEDS: RESP: BUDESONIDE 0.5 MG/2 ML NEB NEB SCH ×2 (09:08→21:51)
[2017-11-27] MEDS: buPROPion HCL 150 MG SUSTAINED RELEASE TAB PO SCH (09:37)
[2017-11-27] MEDS: hydrALAZINE HCL 25 MG TAB PO SCH ×3 (09:37→18:12)
[2017-11-27 15:03] LABS: CALCIUM 8.9 MG/DL (8.5-10.1); CREATININE 1.65 MG/DL (0.60-1.30)
[2017-11-27] MEDS ORDERED: RESP: ALBUTEROL 2.5 MG/IPRATROPIUM 0.5 MG NEB (PRN) NEB (16:30)
[2017-11-27] MEDS: INSULIN ASPART SUPPLEMENTAL SCALE SQ SCH ×2 (18:12→21:00)
--- NOTE | 2017-11-27 21:57 | EKG ---
Date Performed: 11/26/2017 Time Performed: 23:09:35 PTAGE: 67 years EKG: SINUS TACHYCARDIA ABNORMAL RHYTHM ECG Compared to PREVIOUS TRACING , patient is now in sinus tachycardia. PREVIOUS TRACIN10/14/2017 12.2 5 DOCTOR: Arben Mack Interpretating Date/Time 11/27/2017 21:56:09
[2017-11-27] MEDS: MONTELUKAST SODIUM 10 MG TAB PO SCH (22:23)
[2017-11-27] MEDS: SODIUM CHLORIDE 0.9% FLUSH 10 ML FLUSH IVF PRN (22:25)
[2017-11-28] VITALS (9 sets, daily range): BP systolic 147–165; BP diastolic 70–88; PULSE 79–98; RESP 17–22; TEMP 96.3–97.6; O2SAT 91–94
[2017-11-28] MEDS: RESP: ALBUTEROL 2.5 MG/IPRATROPIUM 0.5 MG NEB (SCH) NEB ×6 (03:50→21:15)
[2017-11-28] MEDS: PIPERACIL-TAZO 3.375 GM PREMIX 50 ML IV SCH ×4 (06:26→23:16)
[2017-11-28] MEDS: methylPREDNISolone SOD SUCC 125 MG/2 ML VIAL IV PUSH SCH ×2 (06:27→20:46)
[2017-11-28] MEDS: INSULIN ASPART SUPPLEMENTAL SCALE SQ SCH ×4 (08:00→20:45)
[2017-11-28] MEDS: RESP: BUDESONIDE 0.5 MG/2 ML NEB NEB SCH ×2 (09:30→21:15)
[2017-11-28] MEDS: buPROPion HCL 150 MG SUSTAINED RELEASE TAB PO SCH (09:46)
[2017-11-28] MEDS: LOSARTAN 25 MG TAB PO SCH (09:46)
[2017-11-28] MEDS: hydrALAZINE HCL 25 MG TAB PO SCH ×3 (09:47→18:23)
--- NOTE | 2017-11-28 09:53 | HHI.PR ---
Subjective Remarks breathing better has been oob leg swelling down Objective Vitals lying in bed no distress heart reg lung few basilar crackes wheezing/rhonci much improved minimal left pedal edema and minimal chronic right leg swelling. Vital Signs Date Time Temp Pulse Resp B/P (MAP) Pulse Ox O2 Delivery O2 Flow Rate FiO2 11/28/17 09:30 94 Nasal Cannula 2.00 11/28/17 00:00 96.6 81 18 147/74 (98) 93 11/27/17 21:37 97 Nasal Cannula 2.00 11/27/17 20:00 97.8 82 16 143/63 (89) 92 11/27/17 16:00 96.9 75 20 154/75 (101) 95 11/27/17 12:00 97.5 77 20 165/79 (107) 98 Result Diagram: 11/26/17 2317 11/27/17 1351 A/P Problem List: (1) COPD exacerbation ICD Codes: J44.1 - COPD exacerbation Status: Acute Plan: 1. acute copd exacerbation. o2 and steroid dependent. 2. cor pulmonale 3. diasollic chf with exacerbation 4. ember on cpap 5. severe leukocytosis. quickly rising over past 1-2months now 57k...unclear if he has undiagnosed lymph/myeloproliferative d/o no obvious infection but will consider chronic lung infection no diarrhea to suggest c.diff colitis. his note specialist was considering reactive. 6 . severe htn with elevation systolic 230 on arrival. due to respiratory distress 7. anxiety/depression. 8. Lumbar spinal stenosis with CHUNG 2 days ago. cont solumedrol but lower frequency and convert to pred. in AM /nebs/budesonide/ broad abx to cover for bronchitis holding lasix due to overdiuresis and rise in bun/cr. labs pending. cont cpap at night and o2 dvt prophylaxis monitor wbc and will consider further discussion with hematology on this admission. repeat cbc pending. (2) Diastolic dysfunction ICD Codes: I51.9 - Heart disease, unspecified Status: Acute (3) Leukocytosis ICD Codes: D72.829 - Elevated white blood cell count, unspecified Status: Acute (4) EMBER on CPAP ICD Codes: G47.33 - EMBER on CPAP Status: Chronic (5) Spinal stenosis, lumbar ICD Codes: M48.06 - Spinal stenosis, lumbar Status: Chronic (6) HTN (hypertension) ICD Codes: I10 - HTN (hypertension) Status: Chronic Kai Jennings MD Nov 28, 2017 09:53
[2017-11-28 10:41] LABS: AUTOMATED NEUTROPHIL # 47.6 TH/MM3 (1.8-7.7); BASOPHIL # 0.2 TH/MM3 (0-0.2); BASOPHIL % 0.3 % (0.0-2.0); HEMOGLOBIN 10.6 GM/DL (13.0-17.0); LYMPH % 4.7 % (9.0-44.0); LYMPHOCYTE # 2.4 TH/MM3 (1.0-4.8); MEAN CELL VOLUME 96.2 FL (80.0-100.0); MEAN CORPUSCULAR HEMOGLOBIN 30.9 PG (27.0-34.0); MEAN CORPUSCULAR HGB CONC 32.1 % (32.0-36.0); MEAN PLATELET VOLUME 7.2 FL (7.0-11.0); MONO % 2.8 % (0.0-8.0); MONOCYTE # 1.4 TH/MM3 (0-0.9); NEUT % 92.2 % (16.0-70.0); PLATELET COUNT 345 TH/MM3 (150-450); RED BLOOD COUNT 3.43 MIL/MM3 (4.50-5.90); RED CELL DISTRIBUTION WIDTH 16.1 % (11.6-17.2); WHITE BLOOD COUNT 51.6 TH/MM3 (4.0-11.0)
[2017-11-28 11:36] LABS: BICARBONATE 29.3 MEQ/L (21.0-32.0); CALCIUM 8.9 MG/DL (8.5-10.1); CREATININE 1.55 MG/DL (0.60-1.30)
[2017-11-28 12:04] LABS: BANDS 11 % (0-6); LYMPHOCYTES 3 % (9-44); METAMYELOCYTES 8 % (0-1); MONOCYTES 1 % (0-8); MYELOCYTES 3 % (0-0); NEUTROPHIL # MANUAL DIFF 49.5 TH/MM3 (1.8-7.7); POLYS (SEG NEUTROPHILS) 74 % (16-70)
[2017-11-28] MEDS: MONTELUKAST SODIUM 10 MG TAB PO SCH (20:43)
[2017-11-28] MEDS: LEVOFLOXACIN 500 MG PREMIX INJ 100 ML IV SCH (23:15)
[2017-11-29] VITALS: BP 175/74; PULSE 80; RESP 16; TEMP 96.9; O2SAT 95
[2017-11-29] MEDS: RESP: ALBUTEROL 2.5 MG/IPRATROPIUM 0.5 MG NEB (SCH) NEB ×3 (00:23→09:32)
[2017-11-29 04:00] VITALS: BP 156/81; PULSE 71; RESP 16; TEMP 96.3; O2SAT 94
[2017-11-29] MEDS: PIPERACIL-TAZO 3.375 GM PREMIX 50 ML IV SCH (05:11)
[2017-11-29 08:00] VITALS: BP 164/89; PULSE 72; PULSE 74; RESP 17; TEMP 96.2; O2SAT 91
[2017-11-29] MEDS ORDERED: INSULIN ASPART SUPPLEMENTAL SCALE SQ SCH (08:00)
[2017-11-29 08:18] LABS: AUTOMATED NEUTROPHIL # 50.4 TH/MM3 (1.8-7.7); BASOPHIL # 0.1 TH/MM3 (0-0.2); BASOPHIL % 0.1 % (0.0-2.0); HEMATOCRIT 32.6 % (39.0-51.0); HEMOGLOBIN 10.5 GM/DL (13.0-17.0); LYMPH % 3.4 % (9.0-44.0); LYMPHOCYTE # 1.8 TH/MM3 (1.0-4.8); MEAN CELL VOLUME 95.2 FL (80.0-100.0); MEAN CORPUSCULAR HEMOGLOBIN 30.6 PG (27.0-34.0); MEAN CORPUSCULAR HGB CONC 32.1 % (32.0-36.0); MEAN PLATELET VOLUME 7.1 FL (7.0-11.0); MONO % 4.5 % (0.0-8.0); MONOCYTE # 2.5 TH/MM3 (0-0.9); PLATELET COUNT 372 TH/MM3 (150-450); RED BLOOD COUNT 3.42 MIL/MM3 (4.50-5.90); RED CELL DISTRIBUTION WIDTH 15.9 % (11.6-17.2); WHITE BLOOD COUNT 54.8 TH/MM3 (4.0-11.0)
[2017-11-29] MEDS ORDERED: LEVA500T33 PO (08:20)
[2017-11-29] MEDS ORDERED: PRED10 PO (08:20)
--- NOTE | 2017-11-29 08:21 | HHI.DCPOC ---
Discharge Care Plan Diagnosis: (1) COPD exacerbation (2) Cor pulmonale (3) Diastolic dysfunction (4) Leukocytosis (5) JEFFERSON on CPAP (6) Spinal stenosis, lumbar Goals to Promote Your Health * To prevent worsening of your condition and complications * To maintain your health at the optimal level Directions to Meet Your Goals Take your medications as prescribed Follow your dietary instruction Follow activity as directed Keep your appointments as scheduled Take your immunizations and boosters as scheduled If your symptoms worsen call your PCP, if no PCP go to Urgent Care Center or Emergency Room Smoking is Dangerous to Your Health. Avoid second hand smoke Call the 24-hour hour crisis hotline for domestic abuse at Kai Jennings MD Nov 29, 2017 08:21
[2017-11-29 08:41] LABS: BICARBONATE 29.7 MEQ/L (21.0-32.0); CALCIUM 8.8 MG/DL (8.5-10.1); CREATININE 1.22 MG/DL (0.60-1.30)
[2017-11-29] MEDS: methylPREDNISolone SOD SUCC 125 MG/2 ML VIAL IV PUSH SCH (08:58)
[2017-11-29] MEDS: hydrALAZINE HCL 25 MG TAB PO SCH (08:58)
[2017-11-29] MEDS: buPROPion HCL 150 MG SUSTAINED RELEASE TAB PO SCH (08:58)
[2017-11-29] MEDS: LOSARTAN 25 MG TAB PO SCH (08:58)
[2017-11-29] MEDS: SODIUM CHLORIDE 0.9% FLUSH 10 ML FLUSH IVF PRN (09:00)
[2017-11-29 09:10] LABS: BANDS 7 % (0-6); LYMPHOCYTES 6 % (9-44); METAMYELOCYTES 7 % (0-1); MONOCYTES 4 % (0-8); MYELOCYTES 4 % (0-0); NEUTROPHIL # MANUAL DIFF 49.3 TH/MM3 (1.8-7.7); POLYS (SEG NEUTROPHILS) 72 % (16-70)
[2017-11-29 09:33] VITALS: O2SAT 94
[2017-11-29] MEDS: RESP: BUDESONIDE 0.5 MG/2 ML NEB NEB SCH (09:33)
--- NOTE | 2017-11-29 10:04 | HHI.DS ---
Discharge Summary Admission Date Nov 26, 2017 at 23:53 Discharge Date: Nov 29, 2017 Admitting Diagnosis acute exacerbation of COPD with resp distress (1) COPD exacerbation Diagnosis: Principal ICD Codes: J44.1 - COPD exacerbation Status: Acute (2) Cor pulmonale Diagnosis: Principal ICD Codes: I27.81 - Cor pulmonale (chronic) Status: Acute (3) Diastolic dysfunction Diagnosis: Principal ICD Codes: I51.9 - Heart disease, unspecified Status: Acute (4) Leukocytosis Diagnosis: Principal ICD Codes: D72.829 - Elevated white blood cell count, unspecified Status: Acute (5) JEFFERSON on CPAP Diagnosis: Secondary ICD Codes: G47.33 - JEFFERSON on CPAP Status: Chronic (6) Spinal stenosis, lumbar Diagnosis: Secondary ICD Codes: M48.06 - Spinal stenosis, lumbar Status: Chronic (7) HTN (hypertension) Diagnosis: Secondary ICD Codes: I10 - HTN (hypertension) Status: Chronic Brief History Pt is 67 yo with severe copd/o2/steroid dependent, jefferson/cpap, htn, chronic back pain, and recently identified diastolic chf and leukocytosis Pt recently has CHUNG w/in last month and agaiin yesterday and had been overall feeling much better. Was admitted last month for diastolic chf exacerbation. Found to have wbc 25k and sent to remote sensing advisor 2 days ago. Question of reactive wbc but concern for lymphoproliferative or myeloproliferative dz. studies are pending from peripheral blood. Pt was more sob today and unresponsive to nebs. EMS brought him on bipap and given 60mg iv lasix in route. given nebs/solumedrol her and seems to be calming down. now on 4lnc and calmer. No fever or chills. no diarrhea but just vomited. His sbp 230 on arrival. wbc now 57 k. CBC/BMP: 11/29/17 0649 11/29/17 0649 Significant Findings Laboratory Tests Test 11/26/17 23:17 11/26/17 23:20 11/27/17 13:51 11/28/17 10:18 White Blood Count 57.3 TH/MM3 (4.0-11.0) 51.6 TH/MM3 (4.0-11.0) Red Blood Count 4.01 MIL/MM3 (4.50-5.90) 3.43 MIL/MM3 (4.50-5.90) Hemoglobin 12.7 GM/DL (13.0-17.0) 10.6 GM/DL (13.0-17.0) Hematocrit 38.0 % (39.0-51.0) 33.0 % (39.0-51.0) Neutrophils (%) (Auto) 86.7 % (16.0-70.0) 92.2 % (16.0-70.0) Lymphocytes (%) (Auto) 6.0 % (9.0-44.0) 4.7 % (9.0-44.0) Neutrophils # (Auto) 49.7 TH/MM3 (1.8-7.7) 47.6 TH/MM3 (1.8-7.7) Monocytes # (Auto) 3.5 TH/MM3 (0-0.9) 1.4 TH/MM3 (0-0.9) Basophils # (Auto) 0.6 TH/MM3 (0-0.2) Band Neutrophils % 14 % (0-6) 11 % (0-6) Neutrophils # (Manual) 47.0 TH/MM3 (1.8-7.7) 49.5 TH/MM3 (1.8-7.7) Metamyelocytes 5 % (0-1) 8 % (0-1) Myelocytes 6 % (0-0) 3 % (0-0) Promyelocytes 1 % (0-0) Nucleated Red Blood Cells 4 /100 WBC (0-0) Platelet Estimate HIGH (NORMAL) Polychromasia 2.2 % (0.0-1.9) Basophilic Stippling FAINT (NORMAL) FAINT (NORMAL) Creatinine 1.34 MG/DL (0.60-1.30) 1.65 MG/DL (0.60-1.30) 1.55 MG/DL (0.60-1.30) Random Glucose 169 MG/DL (74-106) 435 MG/DL (74-106) 424 MG/DL (74-106) Chloride Level 96 MEQ/L (98-107) 91 MEQ/L (98-107) 92 MEQ/L (98-107) Estimat Glomerular Filtration Rate 53 ML/MIN (>89) 42 ML/MIN (>89) 45 ML/MIN (>89) Troponin I LESS THAN 0.02 NG/ML Blood Gas HCO3 29 mmol/L (22-26) Blood Gas Base Excess 3.8 mmol/L (-2-2) Arterial Blood pH 7.37 (7.380-7.420) Arterial Blood Partial Pressure CO2 51 mmHg (38-42) Blood Urea Nitrogen 34 MG/DL (7-18) 40 MG/DL (7-18) Sodium Level 130 MEQ/L (136-145) 134 MEQ/L (136-145) Neutrophils % (Manual) 74 % (16-70) Lymphocytes % 3 % (9-44) Test 11/29/17 06:49 White Blood Count 54.8 TH/MM3 (4.0-11.0) Red Blood Count 3.42 MIL/MM3 (4.50-5.90) Hemoglobin 10.5 GM/DL (13.0-17.0) Hematocrit 32.6 % (39.0-51.0) Neutrophils (%) (Auto) 92.0 % (16.0-70.0) Lymphocytes (%) (Auto) 3.4 % (9.0-44.0) Neutrophils # (Auto) 50.4 TH/MM3 (1.8-7.7) Monocytes # (Auto) 2.5 TH/MM3 (0-0.9) Neutrophils % (Manual) 72 % (16-70) Band Neutrophils % 7 % (0-6) Lymphocytes % 6 % (9-44) Neutrophils # (Manual) 49.3 TH/MM3 (1.8-7.7) Metamyelocytes 7 % (0-1) Myelocytes 4 % (0-0) Blood Urea Nitrogen 35 MG/DL (7-18) Random Glucose 304 MG/DL (74-106) Chloride Level 96 MEQ/L (98-107) Estimat Glomerular Filtration Rate 59 ML/MIN (>89) Hospital Course (1) COPD exacerbation ICD Codes: J44.1 - COPD exacerbation Status: Acute Plan: 1. acute copd exacerbation. o2 and steroid dependent. 2. cor pulmonale 3. diasollic chf with exacerbation 4. jefferson on cpap 5. severe leukocytosis. quickly rising over past 1-2months now 57k...unclear if he has undiagnosed lymph/myeloproliferative d/o no obvious infection but will consider chronic lung infection no diarrhea to suggest c.diff colitis. his remote sensing advisor was considering reactive. 6 . severe htn with elevation systolic 230 on arrival. due to respiratory distress 7. anxiety/depression. 8. Lumbar spinal stenosis with CHUNG 2 days ago. Pt presented with severe respiratory distress and had to be picked up at home by EMS as he couldn't make it to the car. Apparently the tubing on his cpap was dislodged. He was temporarily placed on bipap in the emergency room and then converted over to nasal cannula with ultimate weaning back to his 2lnc baseline. Pt was treated with iv solumedrol and converted to prednisone taper on day of dc. He was getting q4 nebs and instructed to continue at home for now over next week. He was administer budesonide nebs and will cont symbicort nebs at home. Pt was given iv lasix x 2 at beginning of hospitalization with improvement in his lower ext edema. slightly overdiuresed which resolved day of d/c. We covered him with zosyn/levaquin for possibility of respiratory infection with this severe copd flare. Will continue levaquin x 1 more week after d/c Pt is instructed to use his oxygen with exertion at home. It is believed the patient is getting hypoxic with exertion leading to pulmonary htn/cor pulmonale and edema with flaring of his copd. Subsequent severe elevation of htn and worsening of his diastolic heart failure His wbc unfortunately continues the trend higher. We discussed bone marrow bx. His remote sensing advisor has some pending tests and is considering myeloproliferative d/ o such as CML and he has BCR-ABL pending from [facility] blood. Will call and discus with his remote sensing advisor in next few days and decide on observation vs bone marrow bx. (2) Diastolic dysfunction ICD Codes: I51.9 - Heart disease, unspecified Status: Acute (3) Leukocytosis ICD Codes: D72.829 - Elevated white blood cell count, unspecified Status: Acute (4) JEFFERSON on CPAP ICD Codes: G47.33 - JEFFERSON on CPAP Status: Chronic (5) Spinal stenosis, lumbar ICD Codes: M48.06 - Spinal stenosis, lumbar Status: Chronic (6) HTN (hypertension) ICD Codes: I10 - HTN (hypertension) Status: Chronic Pt Condition on Discharge: Stable Discharge Disposition: Discharge Home Discharge Instructions DIET: Follow Instructions for: Heart Healthy Diet Activities you can perform: Regular-No Restrictions Follow up Referrals: PCP Follow-up - 1 Week with branden gregory Pulmonology - 1 Week with Nicol Ferguson MD New Medications: Levofloxacin (Levaquin) 500 Mg Tablet 500 MG PO DAILY for Infection for 7 Days, #7 TAB 0 Refills Prednisone (Prednisone) 10 Mg Tab 10 MG PO DIRECTED for copd for 30 Days, TAB 0 Refills 30mg po bid x 2 days,20mg po bid x 3 days, 10mg po bid x 5 days, then 10mg po daily Continued Medications: Albuterol Neb (Albuterol Neb) 2.5 Mg/3 Ml Neb 2.5 MG NEB QID NEB PRN for SHORTNESS OF BREATH, #60 NEBULE 0 Refills Bupropion HCl ER 24 HR (Wellbutrin Xl 24 HR) 300 Mg Tab 300 MG PO DAILY for Control Depression, TAB 0 Refills Furosemide (Lasix) 20 Mg Tab 20 MG PO BID for Diuretic, #60 TAB 0 Refills Guaifenesin ER (Mucus Relief ER) 600 Mg Tab 600 MG PO Q12HR PRN for CHEST CONGESTION, TAB 0 Refills Hydralazine HCl (Hydralazine HCl) 50 Mg Tablet 75 MG PO TID Ibuprofen (Ibuprofen) 200 Mg Tab 200 MG PO BID, TAB 0 Refills Ipratropium Neb (Ipratropium Neb) 0.5 Mg/2.5 Ml Amp 0.5 MG NEB QID for Shortness of Breath, #1 NEBULE 0 Refills Losartan (Losartan) 25 Mg Tab 25 MG PO DAILY for Blood Pressure Management, #30 TAB 0 Refills Montelukast (Singulair) 10 Mg Tab 10 MG PO HS, #30 TAB 0 Refills Multivit-Mins/Iron/Folic/Lycop (Centrum Men's Tablet) 8 Mg Iron-200 Mcg-600 Mcg Tablet 1 TAB PO DAILY Potassium Chloride ER (K-Tab) 10 Meq Tab 10 MEQ PO DAILY for Electrolyte Replacement, #30 TAB 0 Refills [Formot/Budesonide] () 3 ML NEB BID FORMOTEROL 12MCG/BUDESONIDE 0.5MG/3ML NEB SOLUTION [Oxygen] () 2 LITER DAMION.CANULA DAILY PRN for SOB/WHEEZING Discontinued Medications: Prednisone (Prednisone) 10 Mg Tab 10 MG PO DAILY, TAB 0 Refills Kai Jennings MD Nov 29, 2017 10:04
== END 2017-11-29 11:00 | disposition home or self-care (01) | DRG 191 ==
LOC: NEPC 23:00 → UNDOADMIN 23:53 → NEDA 23:53 → N06B 11-27 00:22 → NEDA 11-27 00:22 → HOCA 11-27 08:24
PROVIDERS: ADMIT Hospitalist; ATTEND Hospitalist
PROC: 5A09357 Assistance with Respiratory Ventilation, Less than 24 Consecutive Hours, Continuous Positive Airway Pressure (ICD-10-PCS; principal; 2017-11-26)
DX: J44.1 Chronic obstructive pulmonary disease with (acute) exacerbation (principal); I50.32 Chronic diastolic (congestive) heart failure; I27.20 Pulmonary hypertension, unspecified; Z99.81 Dependence on supplemental oxygen; I11.0 Hypertensive heart disease with heart failure; D72.829 Elevated white blood cell count, unspecified; E11.9 Type 2 diabetes mellitus without complications; I27.81 Cor pulmonale (chronic); R06.03 Acute respiratory distress; J22 Unspecified acute lower respiratory infection; J44.0 Chronic obstructive pulmonary disease with (acute) lower respiratory infection; G47.33 Obstructive sleep apnea (adult) (pediatric); M19.90 Unspecified osteoarthritis, unspecified site; M48.061 Spinal stenosis, lumbar region without neurogenic claudication; F32.9 Major depressive disorder, single episode, unspecified; Z87.891 Personal history of nicotine dependence; Z91.040 Latex allergy status
CPT/HCPCS: 36415; 36600; 71045; 80048; 80053; 82805; 82948; 83735; 83880; 84484; 85007; 85027; 85610; 85652; 85730; 86140; 87040; 93005; 94640; 94664; 96374; 96375; 99205; 99213; G0463; J1815; J1940; J1956; J2405; J2543; J2930; J7626

== ENCOUNTER 2017-12-17 09:41 | Day surgery (SDC) | payer MEDICARE ==
[~2017-12-17] VITALS: Ht 175.3 cm; Wt 104.5 kg
[~2017-12-17 09:41] MED LIST changes: +LEVA500T33 PO
[2017-12-17] MEDS ORDERED: SODIUM CHLOR 0.9% 1000 ML IV SCH (10:00)
[2017-12-17 10:24] VITALS: BP 151/79; PULSE 83; RESP 20; TEMP 97.9; O2SAT 94
[2017-12-17 11:04] LABS: HEMATOCRIT 33.9 % (39.0-51.0); MEAN CELL VOLUME 93.7 FL (80.0-100.0); MEAN CORPUSCULAR HEMOGLOBIN 30.4 PG (27.0-34.0); MEAN CORPUSCULAR HGB CONC 32.4 % (32.0-36.0); MEAN PLATELET VOLUME 7.4 FL (7.0-11.0); PLATELET COUNT 244 TH/MM3 (150-450); RED BLOOD COUNT 3.62 MIL/MM3 (4.50-5.90); RED CELL DISTRIBUTION WIDTH 16.2 % (11.6-17.2); WHITE BLOOD COUNT 36.6 TH/MM3 (4.0-11.0)
[2017-12-17] MEDS ORDERED: MIDAZOLAM HCL 2 MG/2 ML VIAL ONE ×2 (11:49→12:18)
[2017-12-17 11:56] LABS: BANDS 6 % (0-6); BASOPHILS 1 % (0-2); LYMPHOCYTES 10 % (9-44); METAMYELOCYTES 9 % (0-1); MONOCYTES 5 % (0-8); MYELOCYTES 11 % (0-0); POLYS (SEG NEUTROPHILS) 56 % (16-70)
[2017-12-17] MEDS ORDERED: LIDOCAINE 1%/EPINEPHrine 1:100,000 SOLN 50 ML VIAL OTHER ONE (12:00)
[2017-12-17 12:44] VITALS: BP 152/74; PULSE 79; RESP 17; TEMP 97.8; O2SAT 94
[2017-12-17 13:00] VITALS: BP 147/68; PULSE 79; RESP 17; O2SAT 94
[2017-12-17 13:15] VITALS: BP 144/58; PULSE 85; RESP 17; O2SAT 94
[2017-12-17 13:45] VITALS: BP 139/69; PULSE 86; RESP 17; O2SAT 94
[2017-12-17 14:15] VITALS: BP 135/68; PULSE 85; RESP 17; O2SAT 94
--- NOTE | 2017-12-17 15:18 | RADRPT ---
EXAM DATE/TIME: 12/17/2017 12:04 [place] COMPARISON: No previous studies available for comparison. INDICATIONS : Leukocytosis. SEDATION TIME: 20 minutes BIOPSY SITE: Left pelvis MEDICATION(S): 1.) 2 mg midazolam (Versed) IV 2.) 100 mcg fentanyl (Sublimaze) IV DEVICE(S): 1.) 11 gauge Bone marrow biopsy needle MEDICAL HISTORY : Diabetes SURGICAL HISTORY : None. ENCOUNTER: Initial ACUITY: 1 day PAIN SCORE: 0/10 LOCATION: Left pelvis A total of one core specimen(s) were obtained and sent to the laboratory for pathologic evaluation. PROCEDURE: 1. CT guided bone marrow biopsy. 2. Conscious sedation with continuous EKG and oximetry monitoring. Prior to the procedure informed consent was obtained. Any appropriate prior imaging studies were rev iewed. Using automated exposure control and adjustment of the mA and/or kV according to patient size , radiation dose was kept as low as reasonably achievable to obtain optimal diagnostic quality images . DICOM format image data is available electronically for review and comparison. The site was prepped in a sterile fashion. Full sterile technique was used, including cap, mask, chika rile gloves and gown and a large sterile sheet. Hand hygiene and 2% chlorhexidine and/or betadine/al cohol prep was utilized per protocol for cutaneous antisepsis. The skin and subcutaneous tissues wer e infiltrated with local anesthetic solution. An oblique position because of body habitus and gauge bone marrow biopsy needle was used for sampling Conscious sedation was performed with the prescribed dosages and duration as above in the presence of an independent trained radiology nurse to assist in the monitoring of the patient. EKG and oximetry remained stable throughout the procedure. The patient tolerated the procedure well and there were no complications. The patient was sent to Radiology Outpatient Unit in stable condition. CONCLUSION: 1. Uncomplicated CT guided bone marrow aspirate. 2. Uncomplicated CT guided bone marrow biopsy. Beto Kessler MD FACR on December 17, 2017 at 15:15 Board Certified Radiologist. This report was verified electronically.
== END 2017-12-17 14:30 | disposition home or self-care (01) ==
LOC: HRAD 09:41 → HRIP 09:44 → HRAD 14:30
PROVIDERS: ATTEND Internal Medicine
DX: C92.10 Chronic myeloid leukemia, BCR/ABL-positive, not having achieved remission (principal); E11.9 Type 2 diabetes mellitus without complications
CPT/HCPCS: 38222; 77012; 85007; 85027; 85097; 88305; 88311; 88313; 99152; C1830; J2250; J3010

== ENCOUNTER → 2017-12-24 | Outpatient (CLI) | payer MEDICARE ==
[~2017-12-24] MED LIST changes: -LEVA500T33 PO; -MULT1TAB50 PO
== END ==
LOC: HRSP 09:52
PROVIDERS: ATTEND Internal Medicine Critical Care Medicine
DX: J44.9 Chronic obstructive pulmonary disease, unspecified (principal)
CPT/HCPCS: 36600; 82805

== ENCOUNTER 2018-05-11 11:53 | Inpatient (IN) ==
[2018-05-11 12:47] LABS: Baso # (Auto) 0.8 th/mm3 (0.0-0.2); Baso % (Auto) 2.2 % (0.0-2.0); Eos # (Auto) 0.5 th/mm3 (0.0-0.4); Eos % (Auto) 1.4 % (0.0-4.0); Hematocrit 32.9 % (39.0-51.0); Hemoglobin 10.7 gm/dL (13.0-17.0); Lymph % (Auto) 5.4 % (9.0-44.0); Mean Corpuscular HGB Conc 32.6 % (32.0-36.0); Mean Corpuscular Hemoglobin 30.2 pg (27.0-34.0); Mean Corpuscular Volume 92.7 fL (80.0-100.0); Mean Platelet Volume 7.3 fL (7.0-11.0); Mono # (Auto) 2.6 th/mm3 (0.0-0.9); Mono % (Auto) 6.9 % (0.0-8.0); Neut # (Auto) 31.2 th/mm3 (1.8-7.7); Neut % (Auto) 84.1 % (16.0-70.0); Platelet Count 386 th/mm3 (150-450); Red Blood Count 3.55 mil/mm3 (4.50-5.90); Red Cell Distribution Width 16.3 % (11.6-17.2); White Blood Count 37.1 th/mm3 (4.0-11.0)
--- NOTE | 2018-05-11 12:53 | ED ---
HPI General Chief complaint: Chest Pain Stated complaint: Pain / SOB Time Seen by Provider: 05/11/18 12:24 History of Present Illness HPI narrative: 68-year-old male with a history of hypertension, COPD on chronic O2, diastolic heart failure, CML, diabetes presents to the emergency department for evaluation of left-sided chest pain and shortness of breath for 4 days. Patient states that when he woke up on Wednesday he started having sharp left- sided chest pain radiating to the left arm and left upper back. States that it is constant. States it is a 9 on a scale of 1-10. Pain is aggravated with breathing. States that he has had worsening shortness of breath as well. States he has tried using his nebulizer treatments without relief of symptoms. States that he had an elevated temperature at his PCPs office yesterday of 99.5 F. States that his cough is slightly worse than usual. Denies any lightheadedness, dizziness, nausea, vomiting, abdominal pain, diarrhea, constipation, black or bloody stool. No other complaints or concerns. Related Data Home Medications Medication Instructions Recorded Confirmed albuterol sulfate 2.5 mg INHALATION QID PRN 05/11/18 05/11/18 bupropion HCl 300 mg PO QAM 05/11/18 05/11/18 fluticasone-salmeterol [AirDuo 1 puff INHALATION Q12H 05/11/18 05/11/18 RespiClick] furosemide 40 mg PO HS 05/11/18 05/11/18 furosemide 40 mg PO QAM 05/11/18 05/11/18 glimepiride 2 mg PO QAM 05/11/18 05/11/18 guaifenesin [Mucinex] 600 mg PO Q12H 05/11/18 05/11/18 hydralazine 75 mg PO TID 05/11/18 05/11/18 ibuprofen 200 mg PO BID PRN 05/11/18 05/11/18 ipratropium bromide 2.5 ml INHALATION Q6H 05/11/18 05/11/18 montelukast 10 mg PO QPM 05/11/18 05/11/18 potassium chloride 10 meq PO DAILY 05/11/18 05/11/18 prednisone 10 mg PO DAILY 05/11/18 05/11/18 Allergies Allergy/AdvReac Type Severity Reaction Status Date / Time latex Allergy Severe RASH AND Verified 05/11/18 12:19 ITCHING atorvastatin AdvReac Severe LETHARGY Verified 05/11/18 12:19 hydrochlorothiazide AdvReac Severe LOW SODIUM Verified 05/11/18 12:19 LEVEL lisinopril AdvReac Intermediate Lethargy Verified 05/11/18 12:43 metformin AdvReac Intermediate Lethargy Verified 05/11/18 12:43 nifedipine AdvReac Intermediate Lethargy Verified 05/11/18 12:43 Ngblola-Rlw-Iiy Reductase AdvReac Intermediate Lethargy Verified 05/11/18 12:43 Inhibitor Review of Systems ROS: all other systems reviewed are negative [facility] Medical History Medical History Abnormal finding of lung (Acute) CHF (congestive heart failure) (Acute) CML (chronic myeloid leukemia) (Acute) COPD (chronic obstructive pulmonary disease) (Acute) Diabetes (Acute) Fistula (Acute) Hypertension (Acute) Pleural effusion (Acute) Surgical History Surgical History History of thoracentesis (Acute) Social History Social History Substance History: No History of Abuse Second Hand Smoke Exposure: No Smoking Status: Former smoker How Often Do You Have a Drink Containing Alcohol: 4 or more times a week [facility] within the Last 8 Weeks: No Recent Out of Country Travel within the Last 8 Weeks: No Substance Abuse Detail Alcohol: Substance Use Status: Active Route Used Substance Abuse: By Mouth Substance Frequency: daily Substance Abuse Comment: light drinker daily per patients Immunization History Tetanus Immunization: >5 Years Hx Influenza Vaccine This Season: Yes Exam Narrative Exam Narrative: GENERAL: Well-nourished and well-developed pleasant patient in no acute distress who is nontoxic appearing. SKIN: Warm and dry. Psoriatic rash to chest wall, chronic per patient. HEAD: Normocephalic and atraumatic. EYES: No injection, drainage, or hyphema noted. PERRLA. EOMI. ENT: No nasal drainage noted. Oropharynx is clear. NECK: Supple and the trachea is midline. CARDIOVASCULAR: Regular rate and rhythm. RESPIRATORY: Rhonchi in upper lobes and decreased at bases. Slight work of breathing noted. No crackles. GASTROINTESTINAL: Abdomen is soft, non-tender, and nondistended. MUSCULOSKELETAL: Slight edema to bilateral ankles. No obvious deformities, cyanosis, or ecchymosis is present throughout the upper and lower extremities. Patient has full range of motion without any signs of neurovascular compromise. Distal pulses are 2+ throughout. NEUROLOGICAL: Awake, alert, and oriented. Normal speech and gait. Cranial nerves are grossly intact. Course Initial Documented Vital Signs Temperature 99.0 F 05/11/18 12:00 Pulse Rate 94 H 05/11/18 12:00 Respiratory Rate 22 05/11/18 12:00 Blood Pressure 155/66 H 05/11/18 12:00 Pulse Oximetry 94 L 05/11/18 12:00 Last Documented Vital Signs Temperature 99.0 F 05/11/18 12:00 Pulse Rate 78 05/11/18 15:18 Respiratory Rate 20 05/11/18 15:18 Blood Pressure 130/59 L 05/11/18 12:28 Pulse Oximetry 92 L 05/11/18 12:28 Medical Decision Making MDM Narrative Medical decision making narrative: 68-year-old male presents to the emergency department for evaluation of chest pain with shortness of breath. Patient is afebrile, vital signs are stable. His oxygen saturation is low at 92% on 2 L, reports that he typically is around 93% on 2 L chronically. IV access is obtained, labs been drawn and sent. Patient is placed on cardiac telemetry and pulse oximetry monitoring. EKG shows normal sinus rhythm with no acute ST elevations or depressions. Patient administered duo nebs 3. CBC shows elevated white blood cell count of 37.1, anemia with hemoglobin 10.7, hematocrit 32.9. CMP is unremarkable for any acute abnormalities. Troponin is less than 0.02. Chest x-ray is negative for any acute abnormalities. Patient well known to Dr. Jennings [facility] and he accepts admission prior to result of CTPA. CTPA negative for any acute abnormalities. Patient has had improvement of his pain with oral pain medication. Stable for transfer to med/surg floor. Medical Screen Exam Complete: Yes Emergency Medical Condition: Yes Differential Diagnosis Differential Diagnosis: COPD exacerbation versus CHF exacerbation versus ACS versus PE versus pneumonia Lab Data Result diagrams: 05/11/18 12:25 05/11/18 12:25 Lab Results 05/11/18 05/11/18 05/11/18 Range/Units 12:25 12:25 12:25 WBC 37.1 H (4.0-11.0) th/mm3 RBC 3.55 L (4.50-5.90) mil/mm3 Hgb 10.7 L (13.0-17.0) gm/dL Hct 32.9 L (39.0-51.0) % MCV 92.7 (80.0-100.0) fL MCH 30.2 (27.0-34.0) pg MCHC 32.6 (32.0-36.0) % RDW 16.3 (11.6-17.2) % Plt Count 386 (150-450) th/mm3 MPV 7.3 (7.0-11.0) fL Prelim Diff (Auto) Slide review pending Neut % (Auto) 84.1 H (16.0-70.0) % Lymph % (Auto) 5.4 L (9.0-44.0) % [facility] % (Auto) 6.9 (0.0-8.0) % Eos % (Auto) 1.4 (0.0-4.0) % Baso % (Auto) 2.2 H (0.0-2.0) % Neut # (Auto) 31.2 H (1.8-7.7) th/mm3 Lymph # (Auto) 2.0 (1.0-4.8) th/mm3 [facility] [place] [facility] # (Auto) 2.6 H (0.0-0.9) th/mm3 Eos # (Auto) 0.5 H (0.0-0.4) th/mm3 Baso # (Auto) 0.8 H (0.0-0.2) th/mm3 WBC Differential Manual diff final Seg Neuts % (Manual) 75 H (16-70) % Band Neuts % (Manual) 2 (0-6) % Lymphocytes % (Manual) 9 (9-44) % Monocytes % (Manual) 4 (0-8) % Metamyelocytes % (Man) 3 H (0-1) % Myelocytes % (Man) 2 H (0-0) % Promyelocytes % (Man) 5 H (0-0) % Abs Neuts (Manual) 32.3 H (1.8-7.7) th/mm3 Differential Comment . Platelet Estimate Normal (Normal) Platelet Morphology Normal (Normal) Sodium 134 L (136-145) meq/L Potassium 4.3 (3.5-5.1) meq/L Chloride 95 L (98-107) meq/L Carbon Dioxide 27.4 (21.0-32.0) meq/L Anion Gap 12 (5-15) meq/L BUN 13 (7-18) mg/dL Creatinine 1.27 (0.60-1.30) mg/dL Estimated GFR 56 L (>89) mL/min Random Glucose 243 H (74-106) mg/dL Calcium 8.9 (8.5-10.1) mg/dL Total Bilirubin 0.4 (0.2-1.0) mg/dL AST 19 (15-37) U/L ALT 21 (12-78) U/L Alkaline Phosphatase 79 (45-117) U/L Troponin I Less than 0.02 L (0.02-0.05) ng/mL B-Natriuretic Peptide 22 (0-100) pg/mL Total Protein 7.9 (6.4-8.2) g/dL Albumin 3.3 L (3.4-5.0) g/dL Imaging Data Radiologist's impression: Chest X-Ray 05/11/18 12:28 CONCLUSION: Negative examination. Chest CTA 05/11/18 12:47 CONCLUSION: 1. No pulmonary emboli. 2. Emphysematous changes with chronic areas of scarring and rounded atelectasis. No acute infiltrate or effusion. Discharge Plan Discharge Disposition Patient Disposition: 30 Still Patient Discharge Condition Condition: Stable Discharge Details Diagnosis: Chest pain, COPD exacerbation Physicians Team ED Provider: Jesus Garcia ED Midlevel Provider: Lorarine Kramer Primary Care Provider: Rafat Leblanc Attending Provider: Kai Jennings Discharge Interventions Interventions: Vital Signs Last Done: 05/11/18 12:08 Status ED Status: Admitted Patient
[2018-05-11 13:09] LABS: Alanine Aminotransferase 21 U/L (12-78); Albumin 3.3 g/dL (3.4-5.0); Anion Gap 12 meq/L (5-15); Aspartate Aminotransferase 19 U/L (15-37); Blood Urea Nitrogen 13 mg/dL (7-18); Calcium 8.9 mg/dL (8.5-10.1); Carbon Dioxide 27.4 meq/L (21.0-32.0); Chloride 95 meq/L (98-107); Glomerular Filtration Rate 56 mL/min (>89); Glucose,Random 243 mg/dL (74-106); Potassium 4.3 meq/L (3.5-5.1); Sodium 134 meq/L (136-145)
[2018-05-11 13:11] LABS: Alkaline Phosphatase 79 U/L (45-117); Total Protein 7.9 g/dL (6.4-8.2)
[2018-05-11] MEDS ORDERED: Dextrose 50% in Water 50 ML Vial IV.PUSH PRN (13:12)
[2018-05-11] MEDS ORDERED: Furosemide 40 MG Tablet PO SCH (13:15)
--- NOTE | 2018-05-11 13:24 | XR ---
EXAM DATE: 05/11/2018 1:12 PM EDT AGE/SEX: 68 years / Male INDICATIONS: Left chest pain since this morning. CLINICAL DATA: This is the patient's initial encounter. Patient reports that signs and symptoms have been present for 1 day and indicates a pain score of 7/10. MEDICAL/SURGICAL HISTORY: Chronic obstructive pulmonary disease. Hypertension Diabetes mellitus type II. None. COMPARISON: [facility] [place], 11/26/2017. . FINDINGS: A single AP view of the chest demonstrates the lungs to be symmetrically aerated without evidence of mass, infiltrate or effusion. The cardiomediastinal contours are unremarkable. Osseous structures a re intact. CONCLUSION: Negative examination. Electronically signed by: Shon Benson MD 05/11/2018 1:23 PM EDT
--- NOTE | 2018-05-11 13:28 | P.HPIM ---
History of Present Illness History of Present Illness: Pt is 68 yo with severe copd/o2/steroid dependent, ember/cpap, cor pulmonale, cml , htn, chronic back pain, and recently identified diastolic chf. Pt has been unable to tolerate tyrosine kinase inh treatment by his oncologist due to swelling and sob. Pt had recent upper resp tract infection. He improved but now has had low grade fever, ant chest pains and shoulder pains...worse with breathing and movement/including palpation. Has had some cough nonproductive. Just miserable with aching in chest/ shoulders. on augmentin since yesterday. leg swelling is actually better than usual. ekg on arrival no ischemia. cardiac enzymes not elevated in ED. CTA in ED no PE and really no change from October CT chest. Past Medical History ember/cpap severe copd..sees Dr Ferguson fev1 around 28 recurrent right exudative pleural effusion..s/p extensive eval . no conclusive etiology.. ?parapneumonic effusion..pet/ct neg/cytology neg right VATS and pleurodesis 2015. now with chronic right lower lung scar htn CML. not tolerating tyrosine kinase inh. due to swelling/sob hx perineal abscess requiring I/D with subsequent colonoscopy with Dr Burkett. Left lung granulomatous mass/presumed to be Histoplasmosis given he grew up in [facility] s/p bronchoscopy with Dr Ferguson. has been dx with dm2 hyponatremia L1 to L5 foramen stenosis mod/severe worse on left..radiculopathy in the past. CHUNG x 2 this year in 2018. echo and lexiscan in november 2014 normal lvf and no ischemia Family History mother breast ca Social History lifelong smoker. quit about 10yrs ago occ/social etoh. - Diagnosis (1) Chest pain (2) COPD exacerbation Inpatient Certification: I certify that the inpatient services were ordered in accordance with Medicare regulations governing the order. This includes certification that hospital inpatient services are reasonable and necessary and in the case of services not specified as inpatient-only under 42 CFR 419.22(n), that they are appropriately provided as inpatient services in accordance to with the 2-midnight benchmark under 43 CFR 412.3(e) Estimated Total Length of Stay (Days): 3 Plans for Post Hospital Care: Home Review of Systems sob cough chest/shoulder pain. PMFSH - History History Provided By: Patient - Medical History Medical History: Medical History (Last Updated 05/11/18 @ 12:53 by Yandy Gillespie RN) Abnormal finding of lung CHF (congestive heart failure) CML (chronic myeloid leukemia) COPD (chronic obstructive pulmonary disease) Diabetes Fistula Hypertension Pleural effusion - Surgical History Surgical History: Surgical History (Last Updated 05/11/18 @ 12:53 by Yandy Gillespie RN) History of thoracentesis - Tobacco History Second Hand Smoke Exposure: No Tobacco Use In Past 30 Days: No Smoking Status: Former smoker - Alcohol History How Often Do You Have a Drink Containing Alcohol: 4 or more times a week - Substance Use History Substance History: No History of Abuse - Substance Use Type Alcohol Status: Active Route Used: By Mouth Frequency: daily Comment: light drinker daily per patients - Travel History Recent Travel in the [place] Within the Last 8 Weeks: No Recent Travel Out of the Country Within the Last 8 Weeks: No - Immunization History Tetanus Immunization: >5 Years Hx Influenza Vaccine This Season: Yes Medications and Allergies Active Medications: Active Medications Albuterol (Duoneb Neb (Vianney)) 1 ampul NEB Q15M VIANNEY Stop: 05/11/18 13:31 Last Admin: 05/11/18 13:02 Dose: 1 ampul Albuterol (Duoneb Neb (Vianney)) 1 ampul NEB Q4HR NEB VIANNEY Albuterol (Duoneb Neb (Prn)) 1 ampul NEB Q2HR NEB PRN PRN Reason: sob Furosemide (Lasix) 40 mg PO QAM VIANNEY Glimepiride (Amaryl) 2 mg PO QAM VIANNEY Glucagon (Glucagon Inj) 1 mg OTHER PRN PRN PRN Reason: for Hypoglycemia Protocol Guaifenesin (Mucinex Er) 600 mg PO Q12H VIANNEY Hydralazine HCl (Apresoline) 75 mg PO TID VIANNEY Levofloxacin/Dextrose (Levaquin 750 Mg Premix Inj) 150 mls @ 100 mls/hr IV.SIG Q24H VIANNEY Insulin Aspart (Novolog Insulin Correctional Sugar Inj) 0 unit SQ ACHS VIANNEY; Protocol Losartan Potassium (Cozaar) 25 mg PO DAILY VIANNEY Methylprednisolone Sodium Succinate (Solumedrol Inj) 125 mg IV.PUSH ONCE ONE Stop: 05/11/18 13:11 Montelukast Sodium (Singulair) 10 mg PO QPM [facility] Non-Formulary Medication (Bupropion Hcl [Bupropion Hcl]) 300 mg PO QAM VIANNEY Potassium Chloride (Klor-Con 10) 10 meq PO DAILY VIANNEY Sodium Chloride (Ns Flush) 2 ml IV.FLUSH UNSCH PRN PRN Reason: FLUSH AFTER USING IV ACCESS Allergies Allergy/AdvReac Type Severity Reaction Status Date / Time latex Allergy Severe RASH AND Verified 05/11/18 12:19 ITCHING atorvastatin AdvReac Severe LETHARGY Verified 05/11/18 12:19 hydrochlorothiazide AdvReac Severe LOW SODIUM Verified 05/11/18 12:19 LEVEL lisinopril AdvReac Intermediate Lethargy Verified 05/11/18 12:43 metformin AdvReac Intermediate Lethargy Verified 05/11/18 12:43 nifedipine AdvReac Intermediate Lethargy Verified 05/11/18 12:43 Tglmdzg-Weu-Ndt Reductase AdvReac Intermediate Lethargy Verified 05/11/18 12:43 Inhibitor Home Medications Medication Instructions Recorded Confirmed Type albuterol sulfate 2.5 mg INHALATION QID PRN 05/11/18 05/11/18 History bupropion HCl 300 mg PO QAM 05/11/18 05/11/18 History fluticasone-salmeterol [AirDuo 1 puff INHALATION Q12H 05/11/18 05/11/18 History RespiClick] furosemide 40 mg PO QAM 05/11/18 05/11/18 History glimepiride 2 mg PO QAM 05/11/18 05/11/18 History guaifenesin [Mucinex] 600 mg PO Q12H 05/11/18 05/11/18 History hydralazine 75 mg PO TID 05/11/18 05/11/18 History ibuprofen 200 mg PO BID PRN 05/11/18 05/11/18 History ipratropium bromide 2.5 ml INHALATION Q6H 05/11/18 05/11/18 History montelukast 10 mg PO QPM 05/11/18 05/11/18 History potassium chloride 10 meq PO DAILY 05/11/18 05/11/18 History losartan 25 mg PO DAILY 05/12/18 05/12/18 History Exam Vital signs: Vital Signs 05/11/18 12:00 05/11/18 12:08 05/11/18 12:28 Temperature 99.0 F Pulse Rate 94 H 91 H 90 Respiratory Rate 22 24 26 H Blood Pressure 155/66 H 139/61 130/59 L Pulse Oximetry 94 L 94 L 92 L 05/11/18 13:07 05/11/18 13:18 Temperature Pulse Rate 88 86 Respiratory Rate 20 20 Blood Pressure Pulse Oximetry Intake & Output 05/10/18 05/11/18 05/11/18 18:59 06:59 18:59 Weight 106.594 kg labored breathing heart reg lung course bs bases abd mild distention. bs ext no pitting. Results - Labs CBC & Chem 7: 05/12/18 05:59 05/12/18 05:59 Labs: Short CBC 05/11/18 Range/Units 12:25 WBC 37.1 H (4.0-11.0) th/mm3 Hgb 10.7 L (13.0-17.0) gm/dL Hct 32.9 L (39.0-51.0) % Plt Count 386 (150-450) th/mm3 BMP 05/11/18 12:25 Sodium 134 L Potassium 4.3 Chloride 95 L Carbon Dioxide 27.4 BUN 13 Creatinine 1.27 Calcium 8.9 Cardiac Enzymes 05/11/18 Range/Units 12:25 Troponin I Less than 0.02 L (0.02-0.05) ng/mL Liver Function 05/11/18 Range/Units 12:25 Total Bilirubin 0.4 (0.2-1.0) mg/dL AST 19 (15-37) U/L ALT 21 (12-78) U/L Alkaline Phosphatase 79 (45-117) U/L Albumin 3.3 L (3.4-5.0) g/dL - Imaging Impressions Chest X-Ray 05/11/18 12:28 CONCLUSION: Negative examination. Caprini VTE Risk Assessment Caprini VTE Risk Assessment: Moderate/High Risk (score >= 2) Caprini Risk Assessment Model: Point Value = 1 Point Value = 2 Point Value = 3 Point Value = 5 Age 41-60 Minor surgery BMI > 25 kg/m2 Swollen legs Varicose veins or History of unexplained or recurrent spontaneous Oral contraceptives or hormone replacement Sepsis (< 1 month) Serious lung disease, including pneumonia (< 1 month) Abnormal pulmonary function Acute myocardial infarction Congestive heart failure (< 1 month) History of inflammatory bowel disease Medical patient at bed rest Age 61-74 Arthroscopic surgery Major open surgery (> 45 min) Laparoscopic surgery (> 45 min) Malignancy Confined to bed (> 72 hours) Immobilizing plaster cast Central venous access Age >= 75 History of VTE Family history of VTE Factor V Leiden Prothrombin 44078H Lupus anticoagulant Anticardiolipin antibodies Elevated serum homocysteine Heparin-induced thrombocytopenia Other congenital or acquired thrombophilia Stroke (< 1 month) Elective arthroplasty Hip, pelvis, or leg fracture Acute spinal cord injury (< 1 month) Prophylaxis Regimen: Total Risk Factor Score Risk Level Prophylaxis Regimen 0-1 Low Early ambulation 2 Moderate Order ONE of the following: *Sequential Compression Device (SCD) *Heparin 5000 units SQ BID 3-4 Higher Order ONE of the following medications: *Heparin 5000 units SQ TID *Enoxaparin/Lovenox 40 mg SQ daily (WT < 150 kg, CrCl > 30 mL/min) *Enoxaparin/Lovenox 30 mg SQ daily (WT < 150 kg, CrCl > 10-29 mL/min) *Enoxaparin/Lovenox 30 mg SQ BID (WT < 150 kg, CrCl > 30 mL/min) AND/OR *Sequential Compression Device (SCD) 5 or more Highest Order ONE of the following medications: *Heparin 5000 units SQ TID (Preferred with Epidurals) *Enoxaparin/Lovenox 40 mg SQ daily (WT < 150 kg, CrCl > 30 mL/min) *Enoxaparin/Lovenox 30 mg SQ daily (WT < 150 kg, CrCl > 10-29 mL/min) *Enoxaparin/Lovenox 30 mg SQ BID (WT < 150 kg, CrCl > 30 mL/min) AND *Sequential Compression Device (SCD) Assessment and Plan - Assessment (1) Chest pain Code(s): R07.9 - Chest pain, unspecified Status: Acute Plan: 1. chest pain which is felt to be muskuloskeletal pain mostly from cough 2. copd with exacerbation. severe copd/fev1 around 28. O2/steroid dependent Pt felt to have bronchitis/bronchopneumonia 3 ember/cpap 4. CML. not tolerating tyrosine kinase inh. due to swelling/sob 5. history of right recurrent pleural effusion..pet/ct neg/cytology neg right VATS and pleurodesis 2016. now with chronic right lower lung scar 6. htn 7. dm 2 8.L1 to L5 foramen stenosis mod/severe worse on left..radiculopathy in the past. cont nebs/solumedrol overnight start levaquin from bronchitis/bronchopneumonia cont mucolytic nsaid for cp and prn norco admit pt ovenright....dc home tomorrow if improving. (2) COPD exacerbation Code(s): J44.1 - Chronic obstructive pulmonary disease with (acute) exacerbation Status: Acute (1) Chest pain Qualifiers: Chest pain type: unspecified Qualified Code(s): R07.9 - Chest pain, unspecified
[2018-05-11 13:52] LABS: Lymphocytes 9 % (9-44); Metamyelocytes 3 % (0-1); Monocytes 4 % (0-8); Myelocytes 2 % (0-0); Promyelocyte 5 % (0-0)
[2018-05-11 13:53] LABS: Platelet Estimate Normal (Normal); Platelet Morphology Normal (Normal)
[2018-05-11] MEDS ORDERED: MethylPREDNISolone Sod Succinate Inj 125 MG/2 ML Vial IV.PUSH ONE (15:00)
--- NOTE | 2018-05-11 15:21 | CT ---
EXAM DATE: 05/11/2018 3:11 PM EDT AGE/SEX: 68 years / Male INDICATIONS: Patient complains of chest pain and left arm pain since Wednesday. CLINICAL DATA: This is the patient's initial encounter. Patient reports that signs and symptoms have been present for 4 - 6 days and indicates a pain score of 9/10. MEDICAL/SURGICAL HISTORY: Congestive heart failure. Chronic obstructive pulmonary disease. Diabet es. leukemia, fistula, hypertension . fistula RADIATION DOSE: 23.20 CTDI (mGy) COMPARISON: POI, CT CHEST W/O CONTRAST, 12/05/2015. . TECHNIQUE: Volumetric scanning was performed using a multi-row detector CT scanner during bolus infu lakisha of 75 ml Omnipaque 350 (iohexol) nonionic water-soluble contrast as a single exam dose. The satish a was post processed with a variety of visualization algorithms including full volume maximum intensi ty projection and sliding thin slab reformation. Using automated exposure control and adjustment of t he mA and/or kV according to patient size, radiation dose was kept as low as reasonably achievable to obtain optimal diagnostic quality images. DICOM format image data is available electronically for r eview and comparison. FINDINGS: Pulmonary Arteries: No filling defects are seen in the pulmonary arteries out to the subsegmental ve ssels. The left and right pulmonary arteries are normal in diameter. Lung: Diffuse emphysematous changes. A curvilinear area of parenchymal consolidation posteriorly wit hin the right lung base is unchanged from the prior study and consistent with scarring. Linear scarri ng is seen within the left lung base which is new from the prior study. A large calcified granuloma i s noted within the left lower lobe. This is unchanged. A small rounded area of atelectasis is seen wi thin the subpleural aspects of the right middle lobe. No acute infiltrates.. Effusion: No effusions. Chronic pleural thickening involving the right hemithorax is stable.. Mediastinum: Top normal heart size. No pericardial effusion. Aorta and pulmonary arteries are normal in caliber. No adenopathy. Small calcified lymph nodes are seen within the left hilum. Coronary leanne ry atherosclerotic calcifications.. Other: The axilla is unremarkable. Granulomatous calcifications involving the spleen. CONCLUSION: 1. No pulmonary emboli. 2. Emphysematous changes with chronic areas of scarring and rounded atelectasis. No acute infiltrate or effusion. Electronically signed by: Shon Benson MD 05/11/2018 3:19 PM EDT
[2018-05-11] MEDS: buPROPion 150 MG 12 HR Tablet PO SCH (16:49)
[2018-05-11] MEDS: guaiFENesin 600 MG ER Tablet PO SCH ×2 (16:49→21:22)
[2018-05-11] MEDS: Glimepiride 2 MG Tablet PO SCH (16:49)
[2018-05-11] MEDS ORDERED: Temazepam 15 MG Capsule PO PRN (17:22)
[2018-05-11] MEDS: Insulin NovoLOG Aspart Correctional Sugar Inj SQ SCH ×2 (17:57→21:23)
[2018-05-11] MEDS ORDERED: Montelukast 10 MG Tablet PO SCH (18:00)
[2018-05-11] MEDS: hydrALAZINE 25 MG Tablet PO SCH (18:26)
[2018-05-11] MEDS: Triamcinolone Acetonide 0.1% Oint 15 GM Tube TOPICAL SCH (18:37)
[2018-05-11] MEDS: MethylPREDNISolone Sod Succinate Inj 125 MG/2 ML Vial IV.PUSH SCH (22:00)
[2018-05-11 23:04] LABS: Bilirubin,Urine Negative (Negative); Clarity,Urine Clear (Clear); Color,Urine Yellow (Yellw/Straw); Glucose,Urine (UA) Negative (Negative); Hyaline Casts,Urine 14 /lpf (0-3); Leukocyte Esterase,Urine Negative (Negative); Mucus,Urine Few /lpf (Occasional); Nitrite,Urine Negative (Negative); Specific Gravity,Urine 1.027 (1.002-1.035)
[2018-05-12] MEDS: MethylPREDNISolone Sod Succinate Inj 125 MG/2 ML Vial IV.PUSH SCH ×2 (05:39→11:12)
[2018-05-12] MEDS: Triamcinolone Acetonide 0.1% Oint 15 GM Tube TOPICAL SCH ×2 (05:40→06:11)
[2018-05-12 07:28] LABS: Baso # (Auto) 0.5 th/mm3 (0.0-0.2); Baso % (Auto) 1.3 % (0.0-2.0); Eos % (Auto) 0.1 % (0.0-4.0); Hematocrit 30.8 % (39.0-51.0); Hemoglobin 10.1 gm/dL (13.0-17.0); Lymph # (Auto) 1.5 th/mm3 (1.0-4.8); Mean Corpuscular HGB Conc 32.9 % (32.0-36.0); Mean Corpuscular Hemoglobin 30.1 pg (27.0-34.0); Mean Corpuscular Volume 91.5 fL (80.0-100.0); Mean Platelet Volume 7.3 fL (7.0-11.0); Mono % (Auto) 2.5 % (0.0-8.0); Neut # (Auto) 35.1 th/mm3 (1.8-7.7); Neut % (Auto) 92.1 % (16.0-70.0); Platelet Count 377 th/mm3 (150-450); Red Blood Count 3.37 mil/mm3 (4.50-5.90); Red Cell Distribution Width 16.4 % (11.6-17.2)
[2018-05-12 08:07] LABS: Calcium 8.8 mg/dL (8.5-10.1); Carbon Dioxide 26.5 meq/L (21.0-32.0); Potassium 4.5 meq/L (3.5-5.1)
[2018-05-12] MEDS ORDERED: Naproxen 500 MG Tablet PO ONE (08:43)
--- NOTE | 2018-05-12 08:47 | P.PNIM ---
Subjective Interval history: pt improved. eager for dc home. Physical Exam Vital signs: Vital Signs 05/11/18 12:00 05/11/18 12:08 05/11/18 12:28 Temperature 99.0 F Pulse Rate 94 H 91 H 90 Respiratory Rate 22 24 26 H Blood Pressure 155/66 H 139/61 130/59 L Pulse Oximetry 94 L 94 L 92 L 05/11/18 13:07 05/11/18 13:18 05/11/18 15:18 Temperature Pulse Rate 88 86 78 Respiratory Rate 20 20 20 Blood Pressure Pulse Oximetry 05/11/18 16:30 05/11/18 16:50 05/11/18 19:02 Temperature Pulse Rate 78 Respiratory Rate 20 24 Blood Pressure 129/79 Pulse Oximetry 94 L 99 05/11/18 19:03 05/11/18 20:00 05/11/18 20:58 Temperature 97.7 F Pulse Rate 74 81 80 Respiratory Rate 20 18 Blood Pressure 147/70 H Pulse Oximetry 91 L 05/11/18 21:59 05/11/18 23:52 05/12/18 00:00 Temperature 97.6 F Pulse Rate 75 72 Respiratory Rate 22 20 18 Blood Pressure 129/69 Pulse Oximetry 96 92 L 05/12/18 04:00 05/12/18 04:20 05/12/18 07:44 Temperature 97.4 F L Pulse Rate 72 77 76 Respiratory Rate 18 22 16 Blood Pressure 128/67 Pulse Oximetry 92 L 98 95 Intake & Output 05/11/1818 05/12/18 18:59 06:59 18:59 Intake Total 150 / 150 720 / 720 Output Total 300 / 300 800 / 800 Balance -150 / -150 -80 / -80 Weight 106.594 kg 58.7 kg Intake: IV 150 / 150 Levaquin 750 mg Premix Inj 150 150 / 150 ML @ 100 mls/hr IV.SIG Q24H AILYN Rx#:[id number] Oral 720 / 720 Output: Urine 300 / 300 800 / 800 Other: Date of Last Bowel Movement 05/09/18 heart reg lung improved air entry. few basilar crackles worse on right abd s/nt ext no edema Results - Labs CBC & Chem 7: 05/12/18 05:59 05/12/18 05:59 Laboratory Results - last 24 hr 05/11/18 05/11/18 05/11/18 12:25 12:25 12:25 WBC 37.1 H RBC 3.55 L Hgb 10.7 L Hct 32.9 L MCV 92.7 MCH 30.2 MCHC 32.6 RDW 16.3 Plt Count 386 MPV 7.3 Prelim Diff (Auto) Slide review pending Neut % (Auto) 84.1 H Lymph % (Auto) 5.4 L [place] % (Auto) 6.9 Eos % (Auto) 1.4 Baso % (Auto) 2.2 H Neut # (Auto) 31.2 H Lymph # (Auto) 2.0 [place] # (Auto) 2.6 H Eos # (Auto) 0.5 H Baso # (Auto) 0.8 H WBC Differential Manual diff final Seg Neuts % (Manual) 75 H Band Neuts % (Manual) 2 Lymphocytes % (Manual) 9 Monocytes % (Manual) 4 Metamyelocytes % (Man) 3 H Myelocytes % (Man) 2 H Promyelocytes % (Man) 5 H Abs Neuts (Manual) 32.3 H Differential Comment . Platelet Estimate Normal Platelet Morphology Normal Sodium 134 L Potassium 4.3 Chloride 95 L Carbon Dioxide 27.4 Anion Gap 12 BUN 13 Creatinine 1.27 Estimated GFR 56 L Random Glucose 243 H Calcium 8.9 Total Bilirubin 0.4 AST 19 ALT 21 Alkaline Phosphatase 79 Troponin I Less than 0.02 L B-Natriuretic Peptide 22 Total Protein 7.9 Albumin 3.3 L Urine Color Urine Clarity Urine pH Ur Specific [place] Urine Protein Urine Glucose (UA) Urine Ketones Urine Occult Blood Urine Nitrate Urine Bilirubin Urine Urobilinogen Ur Leukocyte Esterase Urine RBC Urine WBC Hyaline Casts Waxy Casts Urine Mucus Micro UA Comment Ur Microscopic Review Urine Culture Comments 05/11/18 05/12/18 05/12/18 22:00 05:59 05:59 WBC 38.0 H RBC 3.37 L Hgb 10.1 L Hct 30.8 L MCV 91.5 MCH 30.1 MCHC 32.9 RDW 16.4 Plt Count 377 MPV 7.3 Prelim Diff (Auto) Slide review pending Neut % (Auto) 92.1 H Lymph % (Auto) 4.0 L [place] % (Auto) 2.5 Eos % (Auto) 0.1 Baso % (Auto) 1.3 Neut # (Auto) 35.1 H Lymph # (Auto) 1.5 [place] # (Auto) 1.0 H Eos # (Auto) 0.0 Baso # (Auto) 0.5 H WBC Differential Seg Neuts % (Manual) Band Neuts % (Manual) Lymphocytes % (Manual) Monocytes % (Manual) Metamyelocytes % (Man) Myelocytes % (Man) Promyelocytes % (Man) Abs Neuts (Manual) Differential Comment . Platelet Estimate Platelet Morphology Sodium 134 L Potassium 4.5 Chloride 95 L Carbon Dioxide 26.5 Anion Gap 13 BUN 21 H Creatinine 1.12 Estimated GFR 65 L Random Glucose 193 H Calcium 8.8 Total Bilirubin AST ALT Alkaline Phosphatase Troponin I B-Natriuretic Peptide Total Protein Albumin Urine Color Yellow Urine Clarity Clear Urine pH 5.0 Ur Specific [place] 1.027 Urine Protein Negative Urine Glucose (UA) Negative Urine Ketones Negative Urine Occult Blood Negative Urine Nitrate Negative Urine Bilirubin Negative Urine Urobilinogen Less than 2 Ur Leukocyte Esterase Negative Urine RBC 1 Urine WBC 1 Hyaline Casts 14 Waxy Casts 1 Urine Mucus Few H Micro UA Comment Culture not ind Ur Microscopic Review Not Reportable Urine Culture Comments Culture not ind - Imaging Impressions Chest X-Ray 05/11/18 12:28 CONCLUSION: Negative examination. Chest CTA 05/11/18 12:47 CONCLUSION: 1. No pulmonary emboli. 2. Emphysematous changes with chronic areas of scarring and rounded atelectasis. No acute infiltrate or effusion. Assessment and Plan - Assessment (1) COPD exacerbation Code(s): J44.1 - Chronic obstructive pulmonary disease with (acute) exacerbation Status: Acute Plan: 1. chest pain which is felt to be muskuloskeletal pain mostly from cough 2. copd with exacerbation. severe copd/fev1 around 30. O2/steroid dependent Pt felt to have bronchitis/bronchopneumonia 3 ember/cpap 4. CML. not tolerating tyrosine kinase inh. due to swelling/sob 5. history of right recurrent pleural effusion..pet/ct neg/cytology neg right VATS and pleurodesis 2016. now with chronic right lower lung scar 6. htn 7. dm 2 8.L1 to L5 foramen stenosis mod/severe worse on left..radiculopathy in the past. Pt much improved overnight. cp resolved cont nebs/prednisone taper back to baseline started levaquin for bronchitis/bronchopneumonia cont mucolytic nsaid for cp and prn norco dc home today with pcp and pulmonary f/u. (2) Chest pain Code(s): R07.9 - Chest pain, unspecified Status: Acute (2) Chest pain Qualifiers: Chest pain type: unspecified Qualified Code(s): R07.9 - Chest pain, unspecified
[2018-05-12 08:57] LABS: Eosinophils 1 % (0-4); Lymphocytes 3 % (9-44); Metamyelocytes 5 % (0-1); Monocytes 3 % (0-8); Myelocytes 5 % (0-0)
[2018-05-12 08:58] LABS: Platelet Estimate Normal (Normal); Platelet Morphology Normal (Normal)
[2018-05-12] MEDS ORDERED: Furosemide 40 MG Tablet PO SCH (09:00)
[2018-05-12 09:05] VITALS: BP 124/67; TEMP 97.8; O2SAT 92
[2018-05-12] MEDS: Insulin NovoLOG Aspart Correctional Sugar Inj SQ SCH (09:06)
[2018-05-12] MEDS: guaiFENesin 600 MG ER Tablet PO SCH (09:07)
[2018-05-12] MEDS: hydrALAZINE 25 MG Tablet PO SCH (09:07)
[2018-05-12] MEDS: buPROPion 150 MG 12 HR Tablet PO SCH (09:07)
[2018-05-12] MEDS: Glimepiride 2 MG Tablet PO SCH (09:07)
[2018-05-12 11:23] VITALS: PULSE 83; RESP 16
--- NOTE | 2018-05-13 00:52 | ECG ---
Date Performed: 05/11/2018 Time Performed: 12:15:42 PTAGE: 68 years EKG: Sinus rhythm NORMAL ECG PREVIOUS TRACING : 02/07/2018 12.59 Since the previous tracing, no significant change noted DOCTOR: Adrián Beltran Interpretating Date/Time 05/13/2018 00:51:53
== END 2018-05-12 11:45 | disposition home or self-care (01) ==
LOC: NEPE 11:53 → NEDA 14:52 → N04 17:47
PROVIDERS: ADMIT Hospitalist; ATTEND Hospitalist

== ENCOUNTER 2018-06-29 08:23 | Observation (INO) ==
[2018-06-29] MEDS ORDERED: Morphine Inj 4 MG/ML Vial IV.PUSH ONE (09:03)
--- NOTE | 2018-06-29 09:14 | ED ---
HPI General Chief complaint: Medical Clearance Stated complaint: swelling & pain in both legs Time Seen by Provider: 06/29/18 08:43 Source: patient and family Mode of arrival: wheelchair Limitations: no limitations History of Present Illness MD Complaint: Reports extremity pain Onset (ago): day(s) (2) Pain Consistency: constant Location: Reports right and lower extremity Severity scale (1-10): 9 Quality: Reports sharp and constant Radiation: Reports none Relieving factors: nothing Exacerbating factors: nothing Associated symptoms: Reports denies other symptoms and shortness of breath (He has chronic shortness of breath secondary to COPD) Related Data Home Medications Medication Instructions Recorded Confirmed albuterol sulfate 2.5 mg INHALATION QID PRN 05/11/18 06/29/18 bupropion HCl 300 mg PO QAM 05/11/18 06/29/18 fluticasone-salmeterol [AirDuo 1 puff INHALATION Q12H 05/11/18 06/29/18 RespiClick] furosemide 40 mg PO QAM 05/11/18 06/29/18 glimepiride 2 mg PO QAM 05/11/18 06/29/18 guaifenesin [Mucinex] 600 mg PO Q12H 05/11/18 06/29/18 hydralazine 75 mg PO TID 05/11/18 06/29/18 ibuprofen 200 mg PO BID PRN 05/11/18 06/29/18 ipratropium bromide 2.5 ml INHALATION Q6H 05/11/18 06/29/18 montelukast 10 mg PO QPM 05/11/18 06/29/18 potassium chloride 10 meq PO DAILY 05/11/18 06/29/18 losartan 25 mg PO DAILY 05/12/18 06/29/18 Previous Rx's Medication Instructions Recorded hydrocodone-acetaminophen [[place]] 1 tab PO Q4H PRN #18 tab 05/12/18 levofloxacin [Levaquin] 750 mg PO DAILY #5 tab 05/12/18 prednisone 10 mg PO DIRECTED 30 Days #30 05/12/18 tab triamcinolone acetonide 1 applicatio TOPICAL Q6HR g 05/12/18 oxycodone-acetaminophen [Percocet] 1 tab PO Q4-6H PRN #14 tab 06/29/18 prednisone 50 mg PO DAILY 5 Days #5 tab 06/29/18 Allergies Allergy/AdvReac Type Severity Reaction Status Date / Time latex Allergy Severe RASH AND Verified 06/29/18 08:36 ITCHING atorvastatin AdvReac Severe LETHARGY Verified 06/29/18 08:36 hydrochlorothiazide AdvReac Severe LOW SODIUM Verified 06/29/18 08:36 LEVEL lisinopril AdvReac Intermediate Lethargy Verified 06/29/18 08:36 metformin AdvReac Intermediate Lethargy Verified 06/29/18 08:36 nifedipine AdvReac Intermediate Lethargy Verified 06/29/18 08:36 [id number]-[id number] Reductase AdvReac Intermediate Lethargy Verified 06/29/18 08:36 Inhibitor Review of Systems ROS: all other systems reviewed are negative [facility] Medical History Medical History Abnormal finding of lung (Acute) CHF (congestive heart failure) (Acute) CML (chronic myeloid leukemia) (Acute) COPD (chronic obstructive pulmonary disease) (Acute) Diabetes (Acute) Fistula (Acute) Hypertension (Acute) Pleural effusion (Acute) Social History Social History Substance History: No History of Abuse Second Hand Smoke Exposure: No Smoking Status: Former smoker Tobacco Type: Cigarettes How Often Do You Have a Drink Containing Alcohol: 4 or more times a week Recent Travel in [facility] within the Last 8 Weeks: No Recent Out of Country Travel within the Last 8 Weeks: No Immunization History Tetanus Immunization: Unsure Exam Const General: cooperative, healthy appearing and comfortable Nutritional Appearance: obese and other (Cushingoid) Orientation: alert, awake and oriented x3 HENMT Head: normal to inspection, normocephalic and atraumatic Eyes Alignment and Position: alignment normal Conjunctivae: conjunctivae normal Sclera: sclerae normal EOM: EOM intact bilaterally Neck Neck: normal visual inspection and full ROM Chest Chest: normal inspection of the chest Resp Effort & Inspection: normal respiratory effort and labored Auscultation: diminished lung sounds and wheezes Cardio Rate: regular rate Rhythm: regular rhythm Back/Spine/Pelvis Cervical Spine: cervical ROM normal Thoracic/Lumbar Spine: thoraco-lumbar ROM normal Skin General: no rashes or lesions noted, turgor normal and dry skin Neuro General: alert, awake, oriented x3, moves all extremities and CN's II-XI intact bilaterally Extrem Left lower extremity: knee Details: tenderness, swelling, abnormal ROM and warmth; no abrasions, no lacerations, no ecchymosis and no crepitus, lower leg Details: normal to inspection and ankle Details: abnormal to inspection, tenderness, swelling, abnormal ROM and warmth; no abrasions, no lacerations and no crepitus Psych Appearance: grossly normal Mental Status: mental status grossly normal Speech and Movement: speech and movement normal Mood: congruent mood Affect: normal affect Attitude: cooperative Thought Process: normal Thought Content: normal Judgment: judgment good Course Consultations Consultation #1: The patient was seen by Dr. Gallagher. He would like to keep the patient in the hospital for observation because the patient cannot walk. Initial Documented Vital Signs Temperature 100.1 F H 06/29/18 08:29 Pulse Rate 92 H 06/29/18 08:29 Respiratory Rate 20 06/29/18 08:29 Blood Pressure 206/84 H 06/29/18 08:29 Pulse Oximetry 94 L 06/29/18 08:29 Last Documented Vital Signs Temperature 100.1 F H 06/29/18 08:29 Pulse Rate 91 H 06/29/18 10:25 Respiratory Rate 18 06/29/18 10:25 Blood Pressure 206/84 H 06/29/18 08:29 Pulse Oximetry 92 L 06/29/18 10:22 Medical Decision Making MDM Narrative Medical decision making narrative: This patient presents with a 2-day history of increasing right knee and ankle pain. The pain is atraumatic. He has also noticed swelling and warmth. He denies any previous similar history. He does state that he was treated for cellulitis of the right great toe about a month ago with good resolution of his symptoms until 2 days ago. At that time, the redness and swelling was confined to the great toe. He has some redness and swelling of his great toe today but the majority of his pain is in his right Achilles tendon and the right knee. He has a significant history of COPD. He is O2 dependent. He uses nebulizer treatments every 4 hours. These have been ordered for him while he is here in the emergency department. Regarding his knee and ankle, I have ordered plain films. I have also ordered an ultrasound of the right lower extremity to rule out DVT. Uric acid is also pending. He does have a low-grade fever so the symptoms could be secondary to cellulitis. Medical Screen Exam Complete: Yes Emergency Medical Condition: Yes Lab Data Lab results reviewed: Yes I reviewed the patient's lab results. Result diagrams: 06/29/18 08:55 06/29/18 08:55 Lab Results 06/29/18 06/29/18 06/29/18 Range/Units 08:55 08:55 09:45 WBC 21.4 H (4.0-11.0) th/mm3 RBC 3.49 L (4.50-5.90) mil/mm3 Hgb 10.5 L (13.0-17.0) gm/dL Hct 32.2 L (39.0-51.0) % MCV 92.4 (80.0-100.0) fL MCH 30.2 (27.0-34.0) pg MCHC 32.6 (32.0-36.0) % RDW 18.4 H (11.6-17.2) % Plt Count 419 (150-450) th/mm3 MPV 7.2 (7.0-11.0) fL Neut % (Auto) 84.2 H (16.0-70.0) % Lymph % (Auto) 5.8 L (9.0-44.0) % [place] % (Auto) 7.3 (0.0-8.0) % Eos % (Auto) 1.6 (0.0-4.0) % Baso % (Auto) 1.1 (0.0-2.0) % Neut # (Auto) 18.0 H (1.8-7.7) th/mm3 Lymph # (Auto) 1.3 (1.0-4.8) th/mm3 [place] # (Auto) 1.6 H (0.0-0.9) th/mm3 Eos # (Auto) 0.4 (0.0-0.4) th/mm3 Baso # (Auto) 0.2 (0.0-0.2) th/mm3 WBC Differential . Differential Comment Auto diff final Sodium 133 L (136-145) meq/L Potassium 4.4 (3.5-5.1) meq/L Chloride 96 L (98-107) meq/L Carbon Dioxide 28.7 (21.0-32.0) meq/L Anion Gap 8 (5-15) meq/L BUN 19 H (7-18) mg/dL Creatinine 1.55 H (0.60-1.30) mg/dL Estimated GFR 45 L (>89) mL/min Random Glucose 219 H (74-106) mg/dL Lactic Acid 1.4 (0.4-2.0) mmol/L Uric Acid 13.8 H (2.6-7.2) mg/dl Calcium 8.5 (8.5-10.1) mg/dL Imaging Data Radiologist's impression: Ankle X-Ray 06/29/18 09:00 CONCLUSION: 1. Calcaneal spurring. 2. Diffuse vascular calcifications. Knee X-Ray 06/29/18 09:00 CONCLUSION: 1. No acute fracture or joint dislocation. 2. Small to moderate joint effusion. 3. Peripheral vascular disease. Discharge Plan Discharge Disposition Patient Disposition: Discharge Home Discharge Condition Condition: Stable Discharge Details Diagnosis: Gout Physicians Team ED Provider: Katie Real Primary Care Provider: Rafat Leblanc Rxs /Orders / Referrals /Forms Prescriptions: New oxycodone-acetaminophen [Percocet] 5-325 mg tablet 1 tab PO Q4-6H PRN (Reason: Acute pain) Qty: 14 RF: 0 prednisone 50 mg tablet 50 mg PO DAILY 5 Days Qty: 5 RF: 0 No Action furosemide 40 mg Tablet 40 mg PO QAM RF: 0 albuterol sulfate 2.5 mg /3 mL (0.083 %) Solution For Nebulization 2.5 mg INHALATION QID PRN (Reason: Shortness Of Breath) RF: 0 potassium chloride 10 mEq Tablet Extended Release 10 meq PO DAILY RF: 0 glimepiride 1 mg Tablet 2 mg PO QAM RF: 0 ibuprofen 200 mg Tablet 200 mg PO BID PRN (Reason: Pain) RF: 0 montelukast 10 mg Tablet 10 mg PO QPM RF: 0 hydralazine 50 mg Tablet 75 mg PO TID RF: 0 ipratropium bromide 0.02 % Solution 2.5 ml INHALATION Q6H RF: 0 bupropion HCl 300 mg Tablet Extended Release 24 Hr 300 mg PO QAM RF: 0 guaifenesin [Mucinex] 600 mg Tablet Extended Release 12hr 600 mg PO Q12H RF: 0 fluticasone-salmeterol [AirDuo RespiClick] 113-14 mcg/actuation Aerosol Powdr Breath Activated 1 puff INHALATION Q12H RF: 0 hydrocodone-acetaminophen [[place]] 10-325 mg Tablet 1 tab PO Q4H PRN (Reason: Pain) Qty: 18 RF: 0 triamcinolone acetonide 0.1 % Ointment 1 applicatio Topical Q6HR RF: 0 levofloxacin [Levaquin] 750 mg Tablet 750 mg PO DAILY Qty: 5 RF: 0 prednisone 10 mg Tablet 10 mg PO DIRECTED 30 Days Qty: 30 RF: 3 losartan 25 mg Tablet 25 mg PO DAILY RF: 0 Discharge Instructions Patient Printed Instructions: Gout (ED) Status ED Status: Pending Admission
[2018-06-29 09:20] LABS: Baso # (Auto) 0.2 th/mm3 (0.0-0.2); Baso % (Auto) 1.1 % (0.0-2.0); Eos # (Auto) 0.4 th/mm3 (0.0-0.4); Eos % (Auto) 1.6 % (0.0-4.0); Hematocrit 32.2 % (39.0-51.0); Hemoglobin 10.5 gm/dL (13.0-17.0); Lymph # (Auto) 1.3 th/mm3 (1.0-4.8); Lymph % (Auto) 5.8 % (9.0-44.0); Mean Corpuscular HGB Conc 32.6 % (32.0-36.0); Mean Corpuscular Hemoglobin 30.2 pg (27.0-34.0); Mean Corpuscular Volume 92.4 fL (80.0-100.0); Mean Platelet Volume 7.2 fL (7.0-11.0); Mono # (Auto) 1.6 th/mm3 (0.0-0.9); Mono % (Auto) 7.3 % (0.0-8.0); Neut % (Auto) 84.2 % (16.0-70.0); Platelet Count 419 th/mm3 (150-450); Red Blood Count 3.49 mil/mm3 (4.50-5.90); Red Cell Distribution Width 18.4 % (11.6-17.2); White Blood Count 21.4 th/mm3 (4.0-11.0)
[2018-06-29 09:35] LABS: Calcium 8.5 mg/dL (8.5-10.1); Carbon Dioxide 28.7 meq/L (21.0-32.0); Potassium 4.4 meq/L (3.5-5.1); Uric Acid 13.8 mg/dl (2.6-7.2)
--- NOTE | 2018-06-29 09:39 | XR ---
EXAM DATE: 06/29/2018 9:00 AM EDT AGE/SEX: 68 years / Male INDICATIONS: Right knee pain, no injury. CLINICAL DATA: This is the patient's initial encounter. Patient reports that signs and symptoms have been present for 1 day and indicates a pain score of 10/10. MEDICAL/SURGICAL HISTORY: None. None. COMPARISON: No prior exams available for comparison. FINDINGS: Bony structures are intact and in normal alignment. Joints are intact without dislocation or signifi cant arthropathy. Osseous density is normal. There appears to be a small to moderate joint effusion seen on the lateral view.. No radiopaque foreign bodies seen. There are vascular calcifications in the soft tissues. CONCLUSION: 1. No acute fracture or joint dislocation. 2. Small to moderate joint effusion. 3. Peripheral vascular disease. Electronically signed by: Ramez Rey MD 06/29/2018 9:38 AM EDT
--- NOTE | 2018-06-29 09:40 | XR ---
EXAM DATE: 06/29/2018 9:00 AM EDT AGE/SEX: 68 years / Male INDICATIONS: Right ankle pain, no injury. CLINICAL DATA: This is the patient's initial encounter. Patient reports that signs and symptoms have been present for 1 day and indicates a pain score of 10/10. MEDICAL/SURGICAL HISTORY: None. None. COMPARISON: No prior exams available for comparison. FINDINGS: Bony structures are intact and in normal alignment. Joints are intact without dislocation or signifi cant arthropathy. Osseous density is normal. Calcaneal spurring. Soft tissues are unremarkable. No radiopaque foreign bodies seen. Diffuse vascular calcifications. CONCLUSION: 1. Calcaneal spurring. 2. Diffuse vascular calcifications. Electronically signed by: Delta Martin MD 06/29/2018 9:39 AM EDT
[2018-06-29] MEDS ORDERED: MethylPREDNISolone Sod Succinate Inj 125 MG/2 ML Vial IV.PUSH ONE (09:51)
[2018-06-29] MEDS ORDERED: Sod Chloride 0.9% Inj 1,000 ML IV.SIG SCH (10:30)
[2018-06-29] MEDS ORDERED: Acetaminophen 325 MG Tablet PO PRN (10:55)
[2018-06-29] MEDS ORDERED: FLUTICASONE SALMETEROL INH SCH (11:15)
[2018-06-29] MEDS ORDERED: Dextrose 50% in Water 50 ML Vial IV.PUSH PRN (11:15)
--- NOTE | 2018-06-29 11:23 | US ---
EXAM DATE: 06/29/2018 9:00 AM EDT AGE/SEX: 68 years / Male INDICATIONS: Right leg swelling and pain. CLINICAL DATA: This is the patient's subsequent encounter. Patient reports that signs and symptoms h ave been present for 4 - 6 days and indicates a pain score of 7/10. MEDICAL/SURGICAL HISTORY: Congestive heart failure. Chronic obstructive pulmonary disease. Hy pertension. Diabetes. Pleural effusion. . Thoracentesis. COMPARISON: [facility] [place], US LEG RIGHT VENOUS DOPPLER, 10/15/2017. . TECHNIQUE: Venous ultrasound of both lower extremities was performed from the inguinal ligament to t he proximal calf. Real-time, color Doppler and spectral tracing, compression and augmentation techni ques were used. FINDINGS: Normal compression of the deep venous system from the inguinal region to the proximal calf . No echogenic clot is seen. Normal response of the venous system to augmentation and respiration. Th ere is some nonspecific edema in the soft tissues of the right lower extremity. CONCLUSION: 1. No evidence of DVT. Electronically signed by: Ramez Rey MD 06/29/2018 11:21 AM EDT
--- NOTE | 2018-06-29 11:25 | P.PNIM ---
Subjective Interval history: Pt is a pleasant 68 y/o M with h/o severe copd/o2/steroid dependent, ember/cpap, cor pulmonale, cml, htn, chronic back pain, and recently identified diastolic chf. Pt has been unable to tolerate tyrosine kinase inh treatment by his oncologist due to swelling and sob. Pt had recent upper resp tract infection. Physical Exam Vital signs: Vital Signs 06/29/18 08:29 06/29/18 10:22 06/29/18 10:25 Temperature 100.1 F H Pulse Rate 92 H 91 H Respiratory Rate 20 18 Blood Pressure 206/84 H Pulse Oximetry 94 L 92 L Intake & Output 06/28/18 06/29/18 06/29/18 18:59 06:59 18:59 Weight 106.594 kg Results - Labs CBC & Chem 7: 06/29/18 08:55 06/29/18 08:55 Laboratory Results - last 24 hr 06/29/18 06/29/18 06/29/18 08:55 08:55 09:45 WBC 21.4 H RBC 3.49 L Hgb 10.5 L Hct 32.2 L MCV 92.4 MCH 30.2 MCHC 32.6 RDW 18.4 H Plt Count 419 MPV 7.2 Neut % (Auto) 84.2 H Lymph % (Auto) 5.8 L [place] % (Auto) 7.3 Eos % (Auto) 1.6 Baso % (Auto) 1.1 Neut # (Auto) 18.0 H Lymph # (Auto) 1.3 [place] # (Auto) 1.6 H Eos # (Auto) 0.4 Baso # (Auto) 0.2 WBC Differential . Differential Comment Auto diff final Sodium 133 L Potassium 4.4 Chloride 96 L Carbon Dioxide 28.7 Anion Gap 8 BUN 19 H Creatinine 1.55 H Estimated GFR 45 L Random Glucose 219 H Lactic Acid 1.4 Uric Acid 13.8 H Calcium 8.5 - Imaging Impressions Ankle X-Ray 06/29/18 09:00 CONCLUSION: 1. Calcaneal spurring. 2. Diffuse vascular calcifications. Knee X-Ray 06/29/18 09:00 CONCLUSION: 1. No acute fracture or joint dislocation. 2. Small to moderate joint effusion. 3. Peripheral vascular disease. Venous Doppler Study 06/29/18 09:00 CONCLUSION: 1. No evidence of DVT.
--- NOTE | 2018-06-29 11:49 | P.HPIM ---
History of Present Illness Service: Medicine Primary Care Physician: Rafat Leblanc Chief Complaint: right foot pain, right knee pain History of Present Illness: Pt is a pleasant 68 y/o M with h/o severe copd/o2/steroid dependent, jefferson/cpap, cor pulmonale, cml, htn, chronic back pain, diastolic CHF, and CML. Pt presented to the ER with c/o increase pain, redness, and swelling at right great toe and right foot. Pt c/o pain at right ankle, right foot, and right knee. Symptoms started at his right toe approximately one week age with involvement of right knee starting last night. Pt is NOT able to ambulate d/t pain. Pt does NOT have a previous h/o gout. However, uric acid is elevated at 13.8 ( 06/29/18) and symptoms are c/w gout. Pt received dose of IV solumedrol in the ER. Pt will be admitted to [facility] for further evaluation and treatment. PMH/PSH 1) jefferson, on home CPAP 2) COPD, severe - follows with Dr Ferguson - fev1 approximately 30 3) exudative pleural effusion, right, recurrent - s/p extensive evaluation without conclusive etiology - parapneumonic effusion..pet/ct neg/cytology neg - right VATS and pleurodesis 2016. now with chronic right lower lung scar 4) HTN 5) CML. not tolerating tyrosine kinase inh. due to swelling/sob 6) hx perineal abscess requiring I/D with subsequent colonoscopy with Dr Burkett. 7) Left lung granulomatous mass - presumed to be Histoplasmosis given he grew up in [facility] - s/p bronchoscopy with Dr Ferguson. 8) DM2 9) hyponatremia, chronic 10) L1 to L5 foramen stenosis mod/severe worse on left..radiculopathy in the past. 11) CHUNG x 2 this year in 2018. 12) echo and lexiscan in november 2014 normal lvf and no ischemia FHX: mother with breast cancer SHX: - lifelong smoker. Quit 10 years ago - occasion etoh - no illicit drugs ALL: latex, lipitor, HCTZ, lisinopril, metformin, nefedipine - Diagnosis (1) Gout (2) COPD (chronic obstructive pulmonary disease) (3) CML (chronic myelocytic leukemia) (4) Diastolic CHF (5) HTN (hypertension) [facility] - History History Provided By: Patient - Medical History Medical History: Medical History (Last Reviewed 06/29/18 @ 11:20 by Chilo Estevez) Abnormal finding of lung CHF (congestive heart failure) CML (chronic myeloid leukemia) COPD (chronic obstructive pulmonary disease) Diabetes Fistula Hypertension Pleural effusion - Surgical History Surgical History: Surgical History (Last Reviewed 06/29/18 @ 11:20 by Chilo Melendez Canine) History of thoracentesis - Tobacco History Second Hand Smoke Exposure: No Smoking Status: Former smoker Tobacco Type: Cigarettes - Alcohol History How Often Do You Have a Drink Containing Alcohol: 4 or more times a week - Substance Use History Substance History: No History of Abuse - Travel History Recent Travel in the [place] Within the Last 8 Weeks: No Recent Travel Out of the Country Within the Last 8 Weeks: No - Immunization History Tetanus Immunization: Unsure Medications and Allergies Active Medications: Active Medications Acetaminophen (Tylenol) 650 mg PO Q4H PRN PRN Reason: Temp > 100.4 Al Hydroxide/Mg Hydroxide (Milk Of Magndonnell Liq) 30 ml PO Q12H PRN PRN Reason: Mild Constipation Albuterol (Duoneb Neb (Vianney)) 1 ampul NEB Q4HR NEB VIANNEY Albuterol (Duoneb Neb (Prn)) 1 ampul NEB Q6HR NEB PRN PRN Reason: SHORTNESS OF BREATH/WHEEZING Clonidine HCl (Catapres) 0.1 mg PO Q6H PRN PRN Reason: SBP>160, DBP>90 Dextrose (D50w Vial) 50 ml IV.PUSH UNSCH PRN PRN Reason: PER HYPOGLYCEMIA PROTOCOL Enoxaparin Sodium (Lovenox Inj) 30 mg SQ Q24H VIANNEY Furosemide (Lasix) 40 mg PO QAM VIANNEY Glimepiride (Amaryl) 2 mg PO QAM VIANNEY Glucagon (Glucagon Inj) 1 mg OTHER PRN PRN PRN Reason: for Hypoglycemia Protocol Guaifenesin (Mucinex Er) 600 mg PO Q12H VIANNEY Hydralazine HCl (Apresoline) 75 mg PO TID VIANNEY Sodium Chloride (Ns Inj) 1,000 mls @ 0 mls/hr IV.SIG BOLUS VIANNEY Last Admin: 06/29/18 11:15 Dose: 999 mls/hr Insulin Aspart (Novolog Insulin Correctional Sugar Inj) 0 unit SQ ACHS VIANNEY; Protocol Losartan Potassium (Cozaar) 25 mg PO DAILY VIANNEY Methylprednisolone Sodium Succinate (Solumedrol Inj) 60 mg IV.PUSH Q12HR [facility] Montelukast Sodium (Singulair) 10 mg PO QPM [facility] Non-Formulary Medication (Fluticasone-Salmeterol [Airduo Respiclick]) 1 puff INHALATION Q12H [facility] Non-Formulary Medication (Bupropion Hcl [Bupropion Hcl]) 300 mg PO QAM [facility] Ondansetron HCl (Zofran Inj) 4 mg IV.PUSH Q6H PRN PRN Reason: NAUSEA OR VOMITING Potassium Chloride (Klor-Con 10) 10 meq PO DAILY [facility] Senna/Docusate Sodium (Selene-Colace) 1 tab PO BID [facility] Allergies Allergy/AdvReac Type Severity Reaction Status Date / Time latex Allergy Severe RASH AND Verified 06/29/18 08:36 ITCHING atorvastatin AdvReac Severe LETHARGY Verified 06/29/18 08:36 hydrochlorothiazide AdvReac Severe LOW SODIUM Verified 06/29/18 08:36 LEVEL lisinopril AdvReac Intermediate Lethargy Verified 06/29/18 08:36 metformin AdvReac Intermediate Lethargy Verified 06/29/18 08:36 nifedipine AdvReac Intermediate Lethargy Verified 06/29/18 08:36 [id number]-[id number]-Zqf Reductase AdvReac Intermediate Lethargy Verified 06/29/18 08:36 Inhibitor Home Medications Medication Instructions Recorded Confirmed Type albuterol sulfate 2.5 mg INHALATION QID PRN 05/11/18 06/29/18 History bupropion HCl 300 mg PO QAM 05/11/18 06/29/18 History fluticasone-salmeterol [AirDuo 1 puff INHALATION Q12H 05/11/18 06/29/18 History RespiClick] furosemide 40 mg PO QAM 05/11/18 06/29/18 History glimepiride 2 mg PO QAM 05/11/18 06/29/18 History guaifenesin [Mucinex] 600 mg PO Q12H 05/11/18 06/29/18 History hydralazine 75 mg PO TID 05/11/18 06/29/18 History ibuprofen 200 mg PO BID PRN 05/11/18 06/29/18 History ipratropium bromide 2.5 ml INHALATION Q6H 05/11/18 06/29/18 History montelukast 10 mg PO QPM 05/11/18 06/29/18 History potassium chloride 10 meq PO DAILY 05/11/18 06/29/18 History losartan 25 mg PO DAILY 05/12/18 06/29/18 History Exam Vital signs: 06/29/18 08:29 06/29/18 10:22 06/29/18 10:25 Temperature 100.1 F H Pulse Rate 92 H 91 H Respiratory Rate 20 18 Blood Pressure 206/84 H Pulse Oximetry 94 L 92 L Narrative: GENERAL: This is a well-nourished, well-developed patient, in no apparent distress. CARDIOVASCULAR: Regular rate and rhythm without murmurs, gallops, or rubs. RESPIRATORY: Clear to auscultation. Breath sounds equal bilaterally. No wheezes , rales, or rhonchi. GASTROINTESTINAL: Abdomen soft, non-tender, nondistended. Normal active bowel sounds MUSCULOSKELETAL: erythema at right great toe, effusion at right knee NEURO: Alert & Oriented x4 to person, place, time, situation. Moves all ext x4 Results - Labs CBC & Chem 7: 06/29/18 08:55 06/29/18 08:55 - Imaging Ankle X-Ray 06/29/18 09:00 1. Calcaneal spurring. 2. Diffuse vascular calcifications. Knee X-Ray 06/29/18 09:00 1. No acute fracture or joint dislocation. 2. Small to moderate joint effusion. 3. Peripheral vascular disease. Venous Doppler Study 06/29/18 09:00 1. No evidence of DVT. Caprini VTE Risk Assessment Caprini VTE Risk Assessment: Moderate/High Risk (score >= 2) Caprini Risk Assessment Model: Point Value = 1 Point Value = 2 Point Value = 3 Point Value = 5 Age 41-60 Minor surgery BMI > 25 kg/m2 Swollen legs Varicose veins or History of unexplained or recurrent spontaneous Oral contraceptives or hormone replacement Sepsis (< 1 month) Serious lung disease, including pneumonia (< 1 month) Abnormal pulmonary function Acute myocardial infarction Congestive heart failure (< 1 month) History of inflammatory bowel disease Medical patient at bed rest Age 61-74 Arthroscopic surgery Major open surgery (> 45 min) Laparoscopic surgery (> 45 min) Malignancy Confined to bed (> 72 hours) Immobilizing plaster cast Central venous access Age >= 75 History of VTE Family history of VTE Factor V Leiden Prothrombin [id number] Lupus anticoagulant Anticardiolipin antibodies Elevated serum homocysteine Heparin-induced thrombocytopenia Other congenital or acquired thrombophilia Stroke (< 1 month) Elective arthroplasty Hip, pelvis, or leg fracture Acute spinal cord injury (< 1 month) Prophylaxis Regimen: Total Risk Factor Score Risk Level Prophylaxis Regimen 0-1 Low Early ambulation 2 Moderate Order ONE of the following: *Sequential Compression Device (SCD) *Heparin 5000 units SQ BID 3-4 Higher Order ONE of the following medications: *Heparin 5000 units SQ TID *Enoxaparin/Lovenox 40 mg SQ daily (WT < 150 kg, CrCl > 30 mL/min) *Enoxaparin/Lovenox 30 mg SQ daily (WT < 150 kg, CrCl > 10-29 mL/min) *Enoxaparin/Lovenox 30 mg SQ BID (WT < 150 kg, CrCl > 30 mL/min) AND/OR *Sequential Compression Device (SCD) 5 or more Highest Order ONE of the following medications: *Heparin 5000 units SQ TID (Preferred with Epidurals) *Enoxaparin/Lovenox 40 mg SQ daily (WT < 150 kg, CrCl > 30 mL/min) *Enoxaparin/Lovenox 30 mg SQ daily (WT < 150 kg, CrCl > 10-29 mL/min) *Enoxaparin/Lovenox 30 mg SQ BID (WT < 150 kg, CrCl > 30 mL/min) AND *Sequential Compression Device (SCD) Assessment and Plan - Assessment (1) Gout Code(s): M10.9 - Gout, unspecified Status: Acute Plan: Pt is a pleasant 68 y/o M with h/o severe copd/o2/steroid dependent, jefferson/cpap, cor pulmonale, cml, htn, chronic back pain, diastolic CHF, and CML. Pt presented to the ER with c/o increase pain, redness, and swelling at right great toe and right foot. Pt c/o pain at right ankle, right foot, and right knee. Symptoms started at his right toe approximately one week age with involvement of right knee starting last night. Pt is NOT able to ambulate d/t pain. Pt does NOT have a previous h/o gout. However, uric acid is elevated at 13.8 ( 06/29/18) and symptoms are c/w gout. Pt received dose of IV solumedrol in the ER. Pt will be admitted to [facility] for further evaluation and treatment. - diuretics for CHF could be contributing - IV solumedrol - allopurinol once acute stable - norco prn pain, dilaudid prn breakthru pain - PT - lovenox for DVT prophylaxis - supportive care - anticipate d/c to home with HHC vs SNF in 1-2 days - repeat labs in AM 2) CHF, diastolic - continue lasix/KCL 3) HTN - continue hydralazine, losartan 4) COPD, severe - oxygen & steroid dependt - solumedrol - prn Duonebs. - continue singulair 5) JEFFERSON on CPAP 6) CML, observe (2) COPD (chronic obstructive pulmonary disease) Code(s): J44.9 - Chronic obstructive pulmonary disease, unspecified Status: Acute (3) CML (chronic myelocytic leukemia) Code(s): C92.10 - Chronic myeloid leukemia, BCR/ABL-positive, not having achieved remission Status: Acute (4) Diastolic CHF Code(s): I50.30 - Unspecified diastolic (congestive) heart failure Status: Acute (5) HTN (hypertension) Code(s): I10 - Essential (primary) hypertension Status: Acute (1) Gout Qualifiers: Gout site: knee Gout etiology: unspecified cause Chronicity: acute Laterality: right Qualified Code(s): M10.9 - Gout, unspecified
--- NOTE | 2018-06-29 11:52 | XR ---
EXAM DATE: 06/29/2018 12:00 AM EDT AGE/SEX: 68 years / Male INDICATIONS: Shortness of Breath, Leg Swelling. CLINICAL DATA: This is the patient's initial encounter. Patient reports that signs and symptoms have been present for 3 days and indicates a pain score of 0/10. MEDICAL/SURGICAL HISTORY: Chronic obstructive pulmonary disease. Hypertension. Chronic Myeloid Leukemia, . COMPARISON: [facility] [place], CTA PULMONARY W CONTRAST W 3D, 05/11/2018. . FINDINGS: Cardiac silhouette is enlarged with indistinct central pulmonary vascularity and diffuse interstitial prominence. Minimal bibasilar airspace disease. Osseous structures are intact. CONCLUSION: 1. Cardiomegaly with pulmonary vascular congestion. 2. Minimal bibasilar airspace disease, presumably atelectasis. Electronically signed by: Delta Martin MD 06/29/2018 11:51 AM EDT
[2018-06-29] MEDS ORDERED: HYDROmorphone PF Inj 1 MG/ML Ampul IV.PUSH PRN (12:06)
[2018-06-29] MEDS ORDERED: Enoxaparin Inj 30 MG/0.3 ML Syringe SQ SCH (13:00)
[2018-06-29] MEDS: hydrALAZINE 25 MG Tablet PO SCH ×2 (13:32→17:53)
[2018-06-29] MEDS: Furosemide 40 MG Tablet PO SCH (13:32)
[2018-06-29 14:11] LABS: Bilirubin,Urine Negative (Negative); Clarity,Urine Clear (Clear); Color,Urine Yellow (Yellw/Straw); Glucose,Urine (UA) Negative (Negative); Hyaline Casts,Urine 57 /lpf (0-3); Leukocyte Esterase,Urine Negative (Negative); Mucus,Urine Few /lpf (Occasional); Nitrite,Urine Negative (Negative); Specific Gravity,Urine 1.016 (1.002-1.035); Squamous Epithelial Cell,Urine 1 /hpf (0-5)
[2018-06-29] MEDS: guaiFENesin 600 MG ER Tablet PO SCH ×2 (14:49→22:30)
[2018-06-29] MEDS: buPROPion 150 MG 12 HR Tablet PO SCH ×2 (14:49→22:31)
[2018-06-29] MEDS: Insulin NovoLOG Aspart Correctional Sugar Inj SQ SCH ×3 (14:50→22:32)
[2018-06-29] MEDS: Glimepiride 2 MG Tablet PO SCH (14:50)
[2018-06-29] MEDS: Montelukast 10 MG Tablet PO SCH (17:53)
[2018-06-29] MEDS: MethylPREDNISolone Sod Succinate Inj 125 MG/2 ML Vial IV.PUSH SCH (22:29)
[2018-06-29] MEDS: Senna/Docusate Sodium 8.6/50 MG Tablet PO SCH (22:31)
[2018-06-30 08:12] LABS: Baso % (Auto) 0.2 % (0.0-2.0); Hematocrit 29.7 % (39.0-51.0); Hemoglobin 9.9 gm/dL (13.0-17.0); Lymph # (Auto) 0.6 th/mm3 (1.0-4.8); Mean Corpuscular HGB Conc 33.2 % (32.0-36.0); Mean Corpuscular Hemoglobin 30.4 pg (27.0-34.0); Mean Corpuscular Volume 91.6 fL (80.0-100.0); Mono # (Auto) 0.4 th/mm3 (0.0-0.9); Mono % (Auto) 2.4 % (0.0-8.0); Neut # (Auto) 14.6 th/mm3 (1.8-7.7); Neut % (Auto) 93.4 % (16.0-70.0); Platelet Count 352 th/mm3 (150-450); Red Blood Count 3.25 mil/mm3 (4.50-5.90); Red Cell Distribution Width 17.8 % (11.6-17.2); White Blood Count 15.6 th/mm3 (4.0-11.0)
[2018-06-30 08:38] LABS: Calcium 8.4 mg/dL (8.5-10.1); Carbon Dioxide 28.9 meq/L (21.0-32.0); Potassium 3.9 meq/L (3.5-5.1)
[2018-06-30] MEDS: guaiFENesin 600 MG ER Tablet PO SCH ×2 (09:42→21:11)
[2018-06-30] MEDS: MethylPREDNISolone Sod Succinate Inj 125 MG/2 ML Vial IV.PUSH SCH ×2 (09:42→21:10)
[2018-06-30] MEDS: Insulin NovoLOG Aspart Correctional Sugar Inj SQ SCH ×4 (09:42→21:12)
[2018-06-30] MEDS: Furosemide 40 MG Tablet PO SCH (09:43)
[2018-06-30] MEDS: hydrALAZINE 25 MG Tablet PO SCH ×3 (09:43→18:19)
[2018-06-30] MEDS: Glimepiride 2 MG Tablet PO SCH (09:44)
[2018-06-30] MEDS: Senna/Docusate Sodium 8.6/50 MG Tablet PO SCH ×2 (09:45→21:11)
[2018-06-30] MEDS: buPROPion 150 MG 12 HR Tablet PO SCH ×2 (09:45→21:11)
--- NOTE | 2018-06-30 12:22 | P.PNIM ---
Subjective Interval history: Less pain and redness at right foot and ankle. Continued pain at right knee. Physical Exam Vital signs: 06/30/18 07:39 06/30/18 08:00 06/30/18 11:54 Temperature 97.6 F Pulse Rate 75 75 77 Respiratory Rate 16 18 16 Blood Pressure 150/73 H Pulse Oximetry 95 95 Narrative: GENERAL: This is a well-nourished, well-developed patient, in no apparent distress. CARDIOVASCULAR: Regular rate and rhythm without murmurs, gallops, or rubs. RESPIRATORY: Clear to auscultation. Breath sounds equal bilaterally. No wheezes , rales, or rhonchi. GASTROINTESTINAL: Abdomen soft, non-tender, nondistended. Normal active bowel sounds MUSCULOSKELETAL: erythema at right great toe/ankle --> resolved. Effusion at right knee NEURO: Alert & Oriented x4 to person, place, time, situation. Moves all ext x4 Results - Labs CBC & Chem 7: 06/30/18 07:17 06/30/18 07:47 06/29/18 09:50 Blood - Peripheral Aerobic Blood Culture - Preliminary No growth in 1 day 06/29/18 09:50 Blood - Peripheral Anaerobic Blood Culture - Preliminary No growth in 1 day 06/29/18 09:45 Blood - Peripheral Aerobic Blood Culture - Preliminary No growth in 1 day 06/29/18 09:45 Blood - Peripheral Anaerobic Blood Culture - Preliminary No growth in 1 day Assessment and Plan - Assessment (1) Gout Code(s): M10.9 - Gout, unspecified Status: Acute Plan: Pt is a pleasant 68 y/o M with h/o severe copd/o2/steroid dependent, ember/cpap, cor pulmonale, cml, htn, chronic back pain, diastolic CHF, and CML. Pt presented to the ER with c/o increase pain, redness, and swelling at right great toe and right foot. Pt c/o pain at right ankle, right foot, and right knee. Symptoms started at his right toe approximately one week age with involvement of right knee starting last night. Pt is NOT able to ambulate d/t pain. Pt does NOT have a previous h/o gout. However, uric acid is elevated at 13.8 ( 06/29/18) and symptoms are c/w gout. Pt received dose of IV solumedrol in the ER. Pt will be admitted to [facility] for further evaluation and treatment. - diuretics for CHF could be contributing - IV solumedrol - allopurinol once acute stable - norco prn pain, dilaudid prn breakthru pain - PT - lovenox for DVT prophylaxis (HOLD) - supportive care - anticipate d/c to home with C vs SNF in 1-2 days - Case d/w Orthopedic Surgeon, Dr. Jasso. - He will consult and perform arthrocentesis of right knee later this evening. 2) CHF, diastolic - continue lasix/KCL 3) HTN - continue hydralazine, losartan 4) COPD, severe - oxygen & steroid dependt - solumedrol - prn Duonebs. - continue singulair 5) EMBER on CPAP 6) CML, observe (2) COPD (chronic obstructive pulmonary disease) Code(s): J44.9 - Chronic obstructive pulmonary disease, unspecified Status: Acute (3) CML (chronic myelocytic leukemia) Code(s): C92.10 - Chronic myeloid leukemia, BCR/ABL-positive, not having achieved remission Status: Acute (4) Diastolic CHF Code(s): I50.30 - Unspecified diastolic (congestive) heart failure Status: Acute (5) HTN (hypertension) Code(s): I10 - Essential (primary) hypertension Status: Acute (1) Gout Qualifiers: Gout site: knee Gout etiology: unspecified cause Chronicity: acute Laterality: right Qualified Code(s): M10.9 - Gout, unspecified
--- NOTE | 2018-06-30 14:38 | ECG ---
Date Performed: 06/29/2018 Time Performed: 17:46:20 PTAGE: 68 years EKG: Sinus rhythm Normal ECG PREVIOUS TRACING : 05/11/2018 12.15 Since the previous tracing, no significant change noted DOCTOR: Ash Modi Interpretating Date/Time 06/30/2018 14:37:27
[2018-06-30] MEDS: Montelukast 10 MG Tablet PO SCH (18:19)
--- NOTE | 2018-06-30 20:27 | MP ---
cc: Hermes Jasso MD DATE OF OPERATION: 06/30/2018 PREOPERATIVE DIAGNOSIS: Effusion right knee. POSTOPERATIVE DIAGNOSIS: Effusion right knee. PROCEDURE: The patient's right knee was prepped with Betadine and, using ethyl chloride spray for freezing technique, an 18-gauge needle was inserted at the proximal superior lateral aspect of the knee joint down through the capsule into the joint. 40 mL of yellowish fluid was then removed and sent to the lab for stat Gram stain, culture, sensitivity, aerobic, anaerobic, and gout crystals per the primary care physician. The wound was covered with a sterile Band-Aid. The patient felt immediate relief from pain in his right knee, and his knee effusion came down to almost 0. The patient tolerated the procedure well and may use his knee as tolerated. We will follow as needed. JMD ARIAS Martin/vanessa , 05:04 PM , 05:10 PM
--- NOTE | 2018-06-30 21:07 | MB ---
cc: Hermes Jasso MD DATE: 06/30/2018 REASON FOR CONSULTATION: Effusion, right knee. HISTORY OF PRESENT ILLNESS: This is a pleasant 68-year-old male seen today with a painful right swollen knee. The patient states this began after he started chemotherapy for his chronic leukemia and he has now been started on gout medication, which seems to be helping his leg. PAST MEDICAL HISTORY: COPD and he has pleural effusion, left lung granulomatous mass, presumed to be histoplasmosis, hyponatremia. MEDICATION: At the present time: 1. Acetaminophen. 2. Albuterol. 3. Clonidine. 4. Dextrose. 5. Lovenox. 6. Lasix. 7. Glimepiride. 8. Glucagon. 9. Guaifenesin. 10. Hydralazine. 11. Sodium chloride. 12. Insulin. 13. Losartan. 14. Methylprednisolone. 15. Montelukast. 16. Ondansetron. 17. Potassium chloride 18. Senna. PAST SURGICAL HISTORY: Thoracentesis. REVIEW OF SYSTEMS: Noncontributory. FAMILY HISTORY: Noncontributory. SOCIAL HISTORY: He does drink alcohol 4 or more times a week. He was a smoker in the past, stopped 10 years ago. ALLERGIES: HE HAS AN ALLERGY TO LATEX and ATORVASTATIN, HYDROCHLOROTHIAZIDE, LISINOPRIL, METFORMIN, NIFEDIPINE. PHYSICAL EXAMINATION: GENERAL: A 68-year-old male, well-developed, well-nourished, oriented x 3, complaining of pain in his right knee. VITAL SIGNS: He is stable and afebrile. LABS: White count 15.6, hemoglobin 9.9, hematocrit 29.7. EXTREMITIES: He moves his upper and lower extremities well. His right knee has 3+ effusion. He has some swelling to his right lower extremity down to his feet. He is neurovascularly intact. IMPRESSION: Effusion, possibly gouty right knee for which we will aspirate his knee and send it to lab for culture and sensitivity, aerobic, anaerobic, Gram stain and gout crystals. We will follow this patient as needed with you thereafter. JKadie Jasso MD JRR/ct , 05:03 PM , 05:11 PM
[2018-07-01] MEDS: MethylPREDNISolone Sod Succinate Inj 125 MG/2 ML Vial IV.PUSH SCH ×2 (09:03→22:03)
[2018-07-01] MEDS: buPROPion 150 MG 12 HR Tablet PO SCH ×2 (09:04→22:04)
[2018-07-01] MEDS: guaiFENesin 600 MG ER Tablet PO SCH ×2 (09:04→22:03)
[2018-07-01] MEDS: hydrALAZINE 25 MG Tablet PO SCH ×3 (09:04→17:14)
[2018-07-01] MEDS: Furosemide 40 MG Tablet PO SCH (09:05)
[2018-07-01] MEDS: Glimepiride 2 MG Tablet PO SCH (09:05)
[2018-07-01] MEDS: Senna/Docusate Sodium 8.6/50 MG Tablet PO SCH ×2 (09:05→22:03)
[2018-07-01] MEDS: Insulin NovoLOG Aspart Correctional Sugar Inj SQ SCH ×5 (09:05→22:04)
--- NOTE | 2018-07-01 15:00 | P.PNIM ---
Subjective Interval history: Less painful right foot/knee from admission. Physical Exam Vital signs: 07/01/18 04:00 07/01/18 04:10 07/01/18 07:52 Temperature 97.3 F L Pulse Rate 75 72 72 Respiratory Rate 18 20 20 Blood Pressure 137/65 Pulse Oximetry 93 L Narrative: GENERAL: This is a well-nourished, well-developed patient, in no apparent distress. CARDIOVASCULAR: Regular rate and rhythm without murmurs, gallops, or rubs. RESPIRATORY: Clear to auscultation. Breath sounds equal bilaterally. No wheezes , rales, or rhonchi. GASTROINTESTINAL: Abdomen soft, non-tender, nondistended. Normal active bowel sounds MUSCULOSKELETAL: erythema at right great toe/ankle --> resolved. Effusion at right knee --> marked improvement NEURO: Alert & Oriented x4 to person, place, time, situation. Moves all ext x4 Results - Labs CBC & Chem 7: 06/30/18 07:17 06/30/18 07:47 Laboratory Results - last 24 hr 06/30/18 06/30/18 06/30/18 17:00 17:00 20:27 POC Glucose 247 H 307 H Synovial Crystals Pos-uric acid 07/01/18 07/01/18 09:02 12:41 POC Glucose 236 H 227 H Synovial Crystals Microbiology 06/30/18 17:00 Fluid - Synovial Fluid Gram Stain - Final 06/30/18 17:00 Fluid - Synovial Fluid Body Fluid Culture - Preliminary No growth in 24 hours 06/29/18 09:50 Blood - Peripheral Aerobic Blood Culture - Preliminary No growth in 2 days 06/29/18 09:50 Blood - Peripheral Anaerobic Blood Culture - Preliminary No growth in 2 days 06/29/18 09:45 Blood - Peripheral Aerobic Blood Culture - Preliminary No growth in 2 days 06/29/18 09:45 Blood - Peripheral Anaerobic Blood Culture - Preliminary No growth in 2 days Assessment and Plan - Assessment (1) Gout Code(s): M10.9 - Gout, unspecified Status: Acute Plan: Pt is a pleasant 68 y/o M with h/o severe copd/o2/steroid dependent, ember/cpap, cor pulmonale, cml, htn, chronic back pain, diastolic CHF, and CML. Pt presented to the ER with c/o increase pain, redness, and swelling at right great toe and right foot. Pt c/o pain at right ankle, right foot, and right knee. Symptoms started at his right toe approximately one week age with involvement of right knee starting last night. Pt is NOT able to ambulate d/t pain. Pt does NOT have a previous h/o gout. However, uric acid is elevated at 13.8 ( 06/29/18) and symptoms are c/w gout. Pt received dose of IV solumedrol in the ER. Pt will be [facility] to [facility] for further evaluation and treatment. - diuretics for CHF could be contributing - Gleevec contributing? - IV solumedrol - allopurinol once acute stable - norco prn pain - PT - lovenox for DVT prophylaxis - Pt underwent arthrocentesis of right knee (06/30/18) performed by Orthopedist , Dr. Kai Jasso - 30ml fluid removed with prompt improvement of discomfort - synovial fluid positive for Uric acid & birefringent crystals - Grams stain synovial fluid (07/01) --> many WBCs, no organisms - Synovial fluid culture (07/01) --> NGTD - Case d/w PT. Pt still requiring help with transfers, but less painful than yesterday - supportive care - anticipate d/c to home with [facility] 07/02 - will start allopurinol upon discharge - f/u with PCP in 1 week - f/u with Dr. Germain in 2 weeks to decide if pt can resume gleevec 2) CHF, diastolic - continue lasix/KCL 3) HTN - continue hydralazine, losartan 4) COPD, severe - oxygen & steroid dependt - solumedrol - prn Duonebs. - continue singulair 5) EMBER on CPAP 6) CML, observe (2) COPD (chronic obstructive pulmonary disease) Code(s): J44.9 - Chronic obstructive pulmonary disease, unspecified Status: Acute (3) CML (chronic myelocytic leukemia) Code(s): C92.10 - Chronic myeloid leukemia, BCR/ABL-positive, not having achieved remission Status: Acute (4) Diastolic CHF Code(s): I50.30 - Unspecified diastolic (congestive) heart failure Status: Acute (5) HTN (hypertension) Code(s): I10 - Essential (primary) hypertension Status: Acute (1) Gout Qualifiers: Gout site: knee Gout etiology: unspecified cause Chronicity: acute Laterality: right Qualified Code(s): M10.9 - Gout, unspecified
[2018-07-01] MEDS ORDERED: Enoxaparin Inj 30 MG/0.3 ML Syringe SQ SCH (16:00)
[2018-07-01] MEDS: Montelukast 10 MG Tablet PO SCH (17:14)
[2018-07-01] MEDS ORDERED: Temazepam 15 MG Capsule PO PRN (17:36)
[2018-07-02 02:03] VITALS: O2SAT 96
[2018-07-02] MEDS: hydrALAZINE 25 MG Tablet PO SCH ×2 (09:19→13:04)
[2018-07-02] MEDS: Glimepiride 2 MG Tablet PO SCH (09:19)
[2018-07-02] MEDS: guaiFENesin 600 MG ER Tablet PO SCH (09:19)
[2018-07-02] MEDS: MethylPREDNISolone Sod Succinate Inj 125 MG/2 ML Vial IV.PUSH SCH (09:20)
[2018-07-02] MEDS: Furosemide 40 MG Tablet PO SCH (09:20)
[2018-07-02] MEDS: Senna/Docusate Sodium 8.6/50 MG Tablet PO SCH (09:20)
[2018-07-02] MEDS: Insulin NovoLOG Aspart Correctional Sugar Inj SQ SCH ×2 (09:21→13:04)
[2018-07-02] MEDS: buPROPion 150 MG 12 HR Tablet PO SCH (09:21)
[2018-07-02 12:09] VITALS: TEMP 97.6
[2018-07-02 12:17] VITALS: PULSE 76; RESP 16
--- NOTE | 2018-07-02 14:03 | P.DS ---
Date of admission: 06/29/18 10:43 Primary care physician: Rafat Leblanc Attending physician on discharge: Osvaldo Gallagher Anticipated date of discharge: 07/02/18 Brief History from admission: Pt is a pleasant 68 y/o M with h/o severe copd/o2/steroid dependent, jefferson/cpap, cor pulmonale, cml, htn, chronic back pain, diastolic CHF, and CML. Pt presented to the ER with c/o increase pain, redness, and swelling at right great toe and right foot. Pt c/o pain at right ankle, right foot, and right knee. Symptoms started at his right toe approximately one week age with involvement of right knee starting last night. Pt is NOT able to ambulate d/t pain. Pt does NOT have a previous h/o gout. However, uric acid is elevated at 13.8 ( 06/29/18) and symptoms are c/w gout. Pt received dose of IV solumedrol in the ER. Pt will be admitted to [facility] for further evaluation and treatment. PMH/PSH 1) jefferson, on home CPAP 2) COPD, severe - follows with Dr Ferguson - fev1 approximately 30 3) exudative pleural effusion, right, recurrent - s/p extensive evaluation without conclusive etiology - parapneumonic effusion..pet/ct neg/cytology neg - right VATS and pleurodesis 2016. now with chronic right lower lung scar 4) HTN 5) CML. not tolerating tyrosine kinase inh. due to swelling/sob 6) hx perineal abscess requiring I/D with subsequent colonoscopy with Dr Burkett. 7) Left lung granulomatous mass - presumed to be Histoplasmosis given he grew up in [facility] - s/p bronchoscopy with Dr Ferguson. 8) DM2 9) hyponatremia, chronic 10) L1 to L5 foramen stenosis mod/severe worse on left..radiculopathy in the past. 11) CHUNG x 2 this year in 2018. 12) echo and lexiscan in november 2014 normal lvf and no ischemia FHX: mother with breast cancer SHX: - lifelong smoker. Quit 10 years ago - occasion etoh - no illicit drugs ALL: latex, lipitor, HCTZ, lisinopril, metformin, nefedipine DS: Diagnosis - Discharge Diagnosis (1) Gout Status: Acute (2) COPD (chronic obstructive pulmonary disease) Status: Acute (3) CML (chronic myelocytic leukemia) Status: Acute (4) Diastolic CHF Status: Acute (5) HTN (hypertension) Status: Acute DS: Medications - Discharge Medications Prescriptions: allopurinol 100 mg PO DAILY #30 tab hydrocodone-acetaminophen 1 tab PO Q6H PRN #15 tab PRN Reason: Pain Scale 1 To 10 losartan 25 mg PO BID #60 tab oxycodone-acetaminophen [Percocet] 1 tab PO Q4-6H PRN #14 tab PRN Reason: Acute pain prednisone 50 mg PO DAILY 5 Days #5 tab prednisone [Izabel] 20 mg PO BID #20 tab sennosides-docusate sodium [Senna Plus] 1 tab PO BID #60 tab DS: Summary Hospital Course: Assessment (1) Gout Code(s): M10.9 - Gout, unspecified Status: Acute Plan: Pt is a pleasant 68 y/o M with h/o severe copd/o2/steroid dependent, jefferson/cpap, cor pulmonale, cml, htn, chronic back pain, diastolic CHF, and CML. Pt presented to the ER with c/o increase pain, redness, and swelling at right great toe and right foot. Pt c/o pain at right ankle, right foot, and right knee. Symptoms started at his right toe approximately one week age with involvement of right knee starting last night. Pt is NOT able to ambulate d/t pain. Pt does NOT have a previous h/o gout. However, uric acid is elevated at 13.8 ( 06/29/18) and symptoms are c/w gout. Pt received dose of IV solumedrol in the ER. Pt will be admitted to [facility] for further evaluation and treatment. - diuretics for CHF could be contributing - Gleevec contributing? - IV solumedrol - allopurinol once acute stable - norco prn pain - PT - lovenox for DVT prophylaxis - Pt underwent arthrocentesis of right knee (06/30/18) performed by Orthopedist , Dr. Kai Jasso - 30ml fluid removed with prompt improvement of discomfort - synovial fluid positive for Uric acid & birefringent crystals - Grams stain synovial fluid (07/01) --> many WBCs, no organisms - Synovial fluid culture (07/01) --> NGTD - PT - right knee pain continues to improve - Pt is able to ambulate in the room & is eager for discharge to home - Will change solumedrol to PO prednisone upon discharge - start allopurinol 100mg PO daily 07/03. - If pt is able to tolerate allopurinol 100mg dose, this may need to be increased to 200mg daily. - discharge to home with [facility] and home PT - see discharge orders - f/u with PCP in 1 week - f/u with Dr. Germain in 2 weeks to decide if pt can resume gleevec 2) CHF, diastolic - continue lasix/KCL 3) HTN - continue hydralazine, losartan 4) COPD, severe - oxygen & steroid dependt - solumedrol - prn Duonebs. - continue singulair 5) JEFFERSON on CPAP 6) CML, observe (2) COPD (chronic obstructive pulmonary disease) Code(s): J44.9 - Chronic obstructive pulmonary disease, unspecified Status: Acute (3) CML (chronic myelocytic leukemia) Code(s): C92.10 - Chronic myeloid leukemia, BCR/ABL-positive, not having achieved remission Status: Acute (4) Diastolic CHF Code(s): I50.30 - Unspecified diastolic (congestive) heart failure Status: Acute (5) HTN (hypertension) Code(s): I10 - Essential (primary) hypertension Status: Acute E-FORE Prescription Drug Monitoring Database has been queried and verified prior to prescribing the controlled substance. Acute pain exception. This patient has normal, predicted, physiological, and time limited response to an adverse mechanical stimulus associated with surgery, trauma, or acute illness as described in my notes. There is a lack of alternative treatment options other than to include the prescribed narcotic treatment for this condition. - Time Spent with Patient Total time spent providing and/or coordinating discharge services: Greater than 30 minutes - Quality: VTE Deep Vein Thrombosis/Pulmonary Embolism Present on Admission: No Exam Vital signs: Vital Signs 07/01/18 15:24 07/01/18 15:25 07/01/18 16:00 Temperature 98.0 F Pulse Rate 90 93 H Respiratory Rate 20 20 Blood Pressure 176/75 H Pulse Oximetry 95 94 L 07/01/18 19:35 07/02/18 00:00 07/02/18 00:29 Temperature 97.1 F L Pulse Rate 93 H 73 68 Respiratory Rate 18 18 16 Blood Pressure 164/86 H Pulse Oximetry 96 07/02/18 04:00 07/02/18 04:03 07/02/18 08:00 Temperature 98.5 F 97.0 F L Pulse Rate 78 66 70 Respiratory Rate 18 16 18 Blood Pressure 155/85 H 163/74 H Pulse Oximetry 96 96 07/02/18 08:45 07/02/18 12:00 07/02/18 12:15 Temperature 97.6 F Pulse Rate 64 71 76 Respiratory Rate 16 19 16 Blood Pressure 163/73 H Pulse Oximetry 96 Intake & Output 07/01/18 07/02/18 07/02/18 18:59 06:59 18:59 Intake Total 960 / 960 360 / 360 Output Total 650 / 650 550 / 550 Balance 310 / 310 -190 / -190 Weight 105.4 kg Intake: Oral 960 / 960 360 / 360 Output: Urine 650 / 650 550 / 550 Other: Date of Last Bowel Movement 07/01/18 # Bowel Movements 1 Results Procedures completed during hospitalization: see hospital course Labs on day of discharge: Labs from last 24 hours 07/02/18 07/02/18 07/01/18 12:04 07:55 17:59 POC Glucose 190 H 243 H 272 H Preliminary micro results at discharge 06/29/18 09:50 Aerobic Blood Culture - Preliminary Blood - Peripheral No growth in 3 days Anaerobic Blood Culture - Preliminary No growth in 3 days 06/29/18 09:45 Aerobic Blood Culture - Preliminary Blood - Peripheral No growth in 3 days Anaerobic Blood Culture - Preliminary No growth in 3 days 06/30/18 17:00 Body Fluid Culture - Preliminary Fluid - Synovial Fluid No growth in 48 hours - Impressions ITS Impressions Chest X-Ray 06/29/18 00:00 CONCLUSION: 1. Cardiomegaly with pulmonary vascular congestion. 2. Minimal bibasilar airspace disease, presumably atelectasis. Ankle X-Ray 06/29/18 09:00 CONCLUSION: 1. Calcaneal spurring. 2. Diffuse vascular calcifications. Knee X-Ray 06/29/18 09:00 CONCLUSION: 1. No acute fracture or joint dislocation. 2. Small to moderate joint effusion. 3. Peripheral vascular disease. Venous Doppler Study 06/29/18 09:00 CONCLUSION: 1. No evidence of DVT. Discharge Plan - Discharge Disposition Patient Disposition: Disch W/Home Health Service - Discharge Condition Condition: Stable - Discharge Order Discharge Orders: Discharge Order (Routine); Ordered 07/02/18 Ordered By: Osvaldo Gallagher - Physicians Team Primary Care Provider: Rafat Leblanc Attending Provider: Osvaldo Gallagher Other Providers: Jaspal Jasso MD ; [facility]
--- NOTE | 2018-07-02 14:05 | P.DCO ---
- Diagnosis (1) Gout Status: Acute (2) COPD (chronic obstructive pulmonary disease) Status: Acute (3) CML (chronic myelocytic leukemia) Status: Acute (4) HTN (hypertension) Status: Acute - Physical Therapy Order: Evaluate and treat, Improve ambulation, Strength and gait training - Home Health Nursing Order: Medical education, Signs/symptoms of disease process, Oxygen administration education, Medication education-adverse effect, Nursing assessment with vital signs - Case Management Consult No - Certification I have seen patient Kai Mallory on 07/02/18. My clinical findings support the need for the requested home health care services because: Limited mobility due to disease progression, Patient has SOB, Deconditioned with increased weakness, Medication compliance is questionable, Limited ability to care for self, Need for psychosocial assistance I certify that my clinical findings support that this patient is homebound because: Impaired cognitive ability/safety, Hx COPD - exertion dyspnea/weakness, Unsafe to leave home unassisted, Need for psychosocial assistance, Unable to use public transportation (1) Gout Qualifiers: Gout site: knee Gout etiology: unspecified cause Chronicity: acute Laterality: right Qualified Code(s): M10.9 - Gout, unspecified
[2018-07-02 14:09] VITALS: BP 157/75
== END 2018-07-02 15:46 | disposition home health service (06) ==
LOC: NEDA 08:23 → NEPE 08:23 → N04 14:11
PROVIDERS: ADMIT Hospitalist; ATTEND Hospitalist